=== PATIENT | male | born 1945 | race Caucasian/White ===

== ENCOUNTER 2019-05-14 20:03 | Inpatient (IN) | payer MEDICARE, OTHER ==
[~2019-05-14] VITALS: Ht 170.2 cm; Wt 70.8 kg
[~2019-05-14 20:03] MED LIST: ALBU90OI INH; ASPI325; Cyclobenzaprine5 MG PO; FISH1000; FLUSAL2505 INH; HYDCHL12.5 PO; LEVE500 PO; LOSA50 PO; Lopressor 50 mg50 MG PO; METO50 PO; MILK THISTLE140 MG; MULVIT; NIAC500; Norco 5-325 Ta1 EACH PO; OMEP40CA12 PO; POTBIC25; POTCIT5 PO; SPIR25 PO; TEMA15 PO; ZESTORETIC 20-121 EA PO
[2019-05-14 20:46] LABS: BASOPHILS ABSOLUTE AUTO 0.07 K/mm3 (0.00-0.23); BASOPHILS PERCENT AUTO 1 % (0-2); EOSINOPHILS ABSOLUTE AUTO 0.13 K/mm3 (0.00-0.68); EOSINOPHILS PERCENT AUTO 1 % (0-6); Hematocrit 46.1 % (37.0-53.0); Hemoglobin 15.5 g/dL (13.5-17.5); IMMATURE GRAN ABSOLUTE AUTO 0.04 K/mm3 (0.00-0.10); IMMATURE GRAN PERCENT AUTO 0 % (0-1); LYMPHOCYTES ABSOLUTE AUTO 2.18 K/mm3 (0.84-5.20); LYMPHOCYTES PERCENT AUTO 23 % (21-46); MONOCYTES PERCENT AUTO 10 % (4-13); Mean Corpuscular HGB 31.3 pg (26.0-34.0); Mean Corpuscular HGB Conc 33.6 g/dL (31.5-36.5); Mean Corpuscular Volume 93 fL (80-100); Mean Platelet Volume 10.4 fL (9.1-12.4); NEUTROPHILS ABSOLUTE AUTO 6.01 K/mm3 (1.96-9.15); NEUTROPHILS PERCENT AUTO 64 % (41-73); Platelet Count 210 K/mm3 (150-400); RDW Coefficient Variation 14.9 % (11.7-14.2); RDW Standard Deviation 50.6 fL (35.1-46.3); Red Blood Cell Count 4.96 M/mm3 (4.30-5.90); White Blood Cell Count 9.33 K/mm3 (4.00-11.30)
[2019-05-14] MEDS ORDERED: XARELTO15 MG (20:56)
[2019-05-14 21:14] LABS: Creatinine, Blood 1.32 mg/dL (0.60-1.20); Potassium, Blood 3.7 mmol/L (3.5-5.5); Troponin I 0.237 ng/mL (0.000-0.040)
[2019-05-14 23:07] LABS: International Normalized Ratio 1.88; Prothrombin Time Results 19.4 Sec (9.7-11.5)
[2019-05-15] MEDS ORDERED: XARELTO20 MG PO (00:23)
[2019-05-15] MEDS ORDERED: METO50 PO (00:27)
[2019-05-15 01:44] LABS: Magnesium, Blood 1.8 mg/dL (1.6-2.4); Phosphorus, Blood 3.2 mg/dL (2.5-4.9)
[2019-05-15 01:52] LABS: BASOPHILS ABSOLUTE AUTO 0.06 K/mm3 (0.00-0.23); BASOPHILS PERCENT AUTO 1 % (0-2); EOSINOPHILS ABSOLUTE AUTO 0.06 K/mm3 (0.00-0.68); EOSINOPHILS PERCENT AUTO 1 % (0-6); Hematocrit 44.3 % (37.0-53.0); Hemoglobin 14.6 g/dL (13.5-17.5); IMMATURE GRAN ABSOLUTE AUTO 0.07 K/mm3 (0.00-0.10); IMMATURE GRAN PERCENT AUTO 1 % (0-1); LYMPHOCYTES ABSOLUTE AUTO 1.37 K/mm3 (0.84-5.20); LYMPHOCYTES PERCENT AUTO 14 % (21-46); MONOCYTES ABSOLUTE AUTO 0.75 K/mm3 (0.16-1.47); MONOCYTES PERCENT AUTO 8 % (4-13); Mean Corpuscular Volume 94 fL (80-100); Mean Platelet Volume 10.5 fL (9.1-12.4); NEUTROPHILS ABSOLUTE AUTO 7.27 K/mm3 (1.96-9.15); NEUTROPHILS PERCENT AUTO 76 % (41-73); Platelet Count 197 K/mm3 (150-400); RDW Coefficient Variation 14.8 % (11.7-14.2); RDW Standard Deviation 51.5 fL (35.1-46.3); Red Blood Cell Count 4.71 M/mm3 (4.30-5.90); White Blood Cell Count 9.58 K/mm3 (4.00-11.30)
[2019-05-15 01:55] LABS: Alanine Aminotransfer (ALT/SGP 52 U/L (12-78); Albumin, Blood 3.1 g/dL (3.4-5.0); Albumin/Globulin Ratio 0.9 (0.8-1.8); Alk Phos 70 U/L (50-136); Anion Gap 10 mmol/L (6-16); Aspartate Aminotrans (AST/SGOT 40 U/L (12-37); Bilirubin, Total 1.6 mg/dL (0.1-1.0); Blood Urea Nitrogen 29 mg/dL (8-24); Bun/Creatinine Ratio 24.6 (12.0-20.0); CO2, Blood 22 mmol/L (21-32); Calcium, Blood 8.6 mg/dL (8.5-10.1); Chloride, Blood 107 mmol/L (98-108); Creatinine, Blood 1.18 mg/dL (0.60-1.20); Globulin, Blood 3.3 g/dL (2.2-4.0); Glomerular Filtration Rate >60 (60-); Glucose, Blood 134 mg/dL (70-99); Potassium, Blood 3.9 mmol/L (3.5-5.5); Sodium, Blood 139 mmol/L (136-145); Total Protein, Blood 6.4 g/dL (6.4-8.2)
[2019-05-17 04:26] LABS: Anion Gap 5 mmol/L (6-16); Blood Urea Nitrogen 21 mg/dL (8-24); Bun/Creatinine Ratio 23.8 (12.0-20.0); CO2, Blood 27 mmol/L (21-32); Calcium, Blood 8.9 mg/dL (8.5-10.1); Chloride, Blood 102 mmol/L (98-108); Creatinine, Blood 0.88 mg/dL (0.60-1.20); Glomerular Filtration Rate >60 (60-); Glucose, Blood 101 mg/dL (70-99); Magnesium, Blood 1.8 mg/dL (1.6-2.4); Potassium, Blood 3.7 mmol/L (3.5-5.5); Sodium, Blood 134 mmol/L (136-145)
[2019-05-17 04:36] LABS: Digoxin (Lanoxin) 1.43 ug/mL (0.80-2.00)
[2019-05-18 03:56] LABS: Anion Gap 7 mmol/L (6-16); Blood Urea Nitrogen 21 mg/dL (8-24); Bun/Creatinine Ratio 22.9 (12.0-20.0); CO2, Blood 26 mmol/L (21-32); Calcium, Blood 9.1 mg/dL (8.5-10.1); Chloride, Blood 101 mmol/L (98-108); Creatinine, Blood 0.92 mg/dL (0.60-1.20); Glomerular Filtration Rate >60 (60-); Glucose, Blood 105 mg/dL (70-99); Potassium, Blood 4.3 mmol/L (3.5-5.5); Sodium, Blood 134 mmol/L (136-145)
[2019-05-19 04:43] LABS: Anion Gap 8 mmol/L (6-16); Blood Urea Nitrogen 18 mg/dL (8-24); Bun/Creatinine Ratio 21.1 (12.0-20.0); CO2, Blood 27 mmol/L (21-32); Calcium, Blood 9.1 mg/dL (8.5-10.1); Chloride, Blood 99 mmol/L (98-108); Creatinine, Blood 0.85 mg/dL (0.60-1.20); Glomerular Filtration Rate >60 (60-); Glucose, Blood 100 mg/dL (70-99); Potassium, Blood 3.9 mmol/L (3.5-5.5); Sodium, Blood 134 mmol/L (136-145)
[2019-05-19 04:56] LABS: Digoxin (Lanoxin) 1.19 ug/mL (0.80-2.00); Magnesium, Blood 1.9 mg/dL (1.6-2.4)
[2019-05-20] MEDS ORDERED: Cardizem CD 24240 MG PO (10:16)
[2019-05-20] MEDS ORDERED: Klor-Con 1010 MEQ PO (10:17)
[2019-05-20] MEDS ORDERED: FURO40 PO (10:48)
== END 2019-05-20 11:21 | disposition home or self-care (01) | DRG 280 ==
LOC: ER 20:03 → PCU 20:04
PROVIDERS: Internal Medicine; Nurse Practitioner Acute Care; Physician Assistant; ADMIT Internal Medicine
PROC: B245ZZ4 Ultrasonography of Left Heart, Transesophageal (ICD-10-PCS; principal; 2019-05-18)
DX: I48.0 Paroxysmal atrial fibrillation (principal); I50.31 Acute diastolic (congestive) heart failure; I21.A1 Myocardial infarction type 2; N17.9 Acute kidney failure, unspecified; Z87.891 Personal history of nicotine dependence; Z86.73 Personal history of transient ischemic attack (TIA), and cerebral infarction without residual deficits; E87.6 Hypokalemia; I11.0 Hypertensive heart disease with heart failure; N18.3 Chronic kidney disease, stage 3 (moderate); I51.3 Intracardiac thrombosis, not elsewhere classified; I35.0 Nonrheumatic aortic (valve) stenosis
CPT/HCPCS: 36415; 36416; 71045; 80048; 80053; 80162; 83735; 83880; 84100; 84443; 84484; 85025; 85610; 85730; 93005; 93010; 93306; 93312; 93325; 96361; 96365; 96367; 96372; 96375; 96376; 99285-25; A9270; A9270-GY; G0378; J1160; J1644; J1940; J2250; J3010; J3475; J3480; J7030

== ENCOUNTER 2019-07-13 00:27 | Inpatient (IN) | payer MEDICARE ==
[~2019-07-13] VITALS: Ht 175.3 cm; Wt 70.7 kg
[~2019-07-13 00:27] MED LIST changes: +Cardizem CD 24240 MG PO; +FURO40 PO; +Klor-Con 1010 MEQ PO; +XARELTO15 MG; +XARELTO20 MG PO
[2019-07-13 01:02] LABS: BASOPHILS ABSOLUTE AUTO 0.07 K/mm3 (0.00-0.23); BASOPHILS PERCENT AUTO 1 % (0-2); EOSINOPHILS ABSOLUTE AUTO 0.14 K/mm3 (0.00-0.68); EOSINOPHILS PERCENT AUTO 2 % (0-6); Hematocrit 47.9 % (37.0-53.0); Hemoglobin 15.7 g/dL (13.5-17.5); IMMATURE GRAN ABSOLUTE AUTO 0.04 K/mm3 (0.00-0.10); IMMATURE GRAN PERCENT AUTO 1 % (0-1); LYMPHOCYTES PERCENT AUTO 21 % (21-46); MONOCYTES ABSOLUTE AUTO 0.85 K/mm3 (0.16-1.47); MONOCYTES PERCENT AUTO 10 % (4-13); Mean Corpuscular HGB Conc 32.8 g/dL (31.5-36.5); Mean Corpuscular Volume 91 fL (80-100); Mean Platelet Volume 10.5 fL (9.1-12.4); NEUTROPHILS ABSOLUTE AUTO 5.63 K/mm3 (1.96-9.15); NEUTROPHILS PERCENT AUTO 66 % (41-73); Platelet Count 215 K/mm3 (150-400); RDW Coefficient Variation 17.9 % (11.7-14.2); RDW Standard Deviation 58.6 fL (35.1-46.3); Red Blood Cell Count 5.24 M/mm3 (4.30-5.90); White Blood Cell Count 8.53 K/mm3 (4.00-11.30)
[2019-07-13 01:21] LABS: Alanine Aminotransfer (ALT/SGP 108 U/L (12-78); Albumin, Blood 3.2 g/dL (3.4-5.0); Albumin/Globulin Ratio 0.9 (0.8-1.8); Alk Phos 96 U/L (50-136); Anion Gap 8 mmol/L (6-16); Aspartate Aminotrans (AST/SGOT 99 U/L (12-37); Bilirubin, Total 1.3 mg/dL (0.1-1.0); Blood Urea Nitrogen 32 mg/dL (8-24); Bun/Creatinine Ratio 28.3 (12.0-20.0); CO2, Blood 20 mmol/L (21-32); Calcium, Blood 8.8 mg/dL (8.5-10.1); Chloride, Blood 110 mmol/L (98-108); Creatinine, Blood 1.13 mg/dL (0.60-1.20); Globulin, Blood 3.6 g/dL (2.2-4.0); Glomerular Filtration Rate >60 (60-); Glucose, Blood 120 mg/dL (70-99); Potassium, Blood 4.3 mmol/L (3.5-5.5); Sodium, Blood 138 mmol/L (136-145); Total Protein, Blood 6.8 g/dL (6.4-8.2); Troponin I 0.234 ng/mL (0.000-0.040)
[2019-07-13 02:52] LABS: Magnesium, Blood 2.1 mg/dL (1.6-2.4)
[2019-07-13] MEDS ORDERED: ASPI325 PO (04:09)
[2019-07-13 04:16] LABS: International Normalized Ratio 1.25; Prothrombin Time Results 13.2 Sec (9.7-11.5)
--- NOTE | 2019-07-13 04:45 | NUR ---
ASSUMED CARE Report recieved from Tara, RN and pt arrived to PCU 6 via stretcher and with ED RN at bedside. Pt S/L at time of arrival. HR 150's, mild SOB/HUMPHRIES. Pt conversing appropriately, alert and oriented, all other VSS. See admission assessment for detailed systems assessment. Pt able to self transfer from ED [facility] to PCU bed with SBA. Cardizem gtt began infusing at 5mg/hr per orders. Rate increased to 10 mg/hr then to 15 mg/hr d/t unchanged HR. BP remains stable. Second IV placed to RW and heprin gtt infusing at 13 u/kg/hr per orders. No acute concerns to note at start of shift. Will continue to monitor.
--- NOTE | 2019-07-13 06:42 | NUR ---
SHIFT SUMMARY No acute changes since pt admission to PCU. He remains in afib c RVR with rates 140-150's. notified at approx 0610 about no improvement to HR with cardizem gtt titrated to 15 mg/hr. Per dr. Jolley, jadeay to increase cardizem gtt to 20 mg/hr if BP is stable. BP remains stable this shift and cardizem gtt increased per orders. monitoring telemetry and BP for changes. Pt is fully alert and oriented, expresses needs with call light, heprin gtt infusing to RW. No rate changes this shift to heprin gtt. Pt has not voided since admission. States no difficulty with voiding "I just don't need to go yet". No acute concerns to note at this time. Will continue to montior until day RN assumes care.
--- NOTE | 2019-07-13 07:35 | NUR ---
Upon bedside report, pt had spontaneous L groin site bleed/ooze. Pressure applied and dressing is being changed by charge loader. RN who assumes care at this time at bedside during bleed/ooze. Distal pedal pulses remain strong. Hand off given to GERARD Nice who assumes care at this time.
--- NOTE | 2019-07-13 07:58 | NUR ---
ASSUMED PATIENT CARE. PATIENT SLEEPING COMFORTABLY IN BED, NO SIGNS OF ACUTE DISTRESS. WCTM.
--- NOTE | 2019-07-13 10:19 | NUR ---
PATIENT COMPLAINED OF INCREASED SOB, NASAL CANNULA APPLIED AT 2L O2, PATIENT ENDORSED RELIEF, WCTM.
--- NOTE | 2019-07-13 17:32 | NUR ---
PATIENT DENIED CHEST PAIN THIS SHIFT, DID COMPLAIN OF SOB RELIEVED BY PRN O2 VIA NASAL CANNULA AT 2L. PATIENT IN A FIB AT 150S START OF SHIFT WITH CARDIZEM DRIP AT 20 ML/HR. PRN 5 MG METOPROLOL GIVEN ONCE. PO CARDIZEM STARTED, AND CARDIZEM DRIP DC'd. PATIENT HAS REMAINED IN A FIB THROUGH THIS SHIFT.
--- NOTE | 2019-07-13 19:00 | NUR ---
ASSUMED CARE RECEIVED REPORT FROM GERARD MARC AND CARE WAS ASSUMED AT 1900. VVS. SBP 111. PT APPEARS TO BE IN NO ACUTE DISTRESS AT THIS TIME, SITTING UP IN BED. BREATHING IS UNLABORED ON ROOM AIR. PT IS ALERT AND ORIENTED, ANSWERING QUESTIONS APPROPRIATELY. PT HAS NO COMPLAINTS AT THIS TIME, DENYING SOB, CP, PALPITATIONS, OR NAUSEA. HEPARIN GTT INFUSING AT 13 U/KG/HR. NO ACUTE CONCERNS AT SHIFT START.
--- NOTE | 2019-07-13 23:02 | NUR ---
Pt maintaining HR in 140-150; 200 mg Metoprolol given with 2100 scheduled medication pass; no effect as of 2240. 5mg IV lopressor given per orders and HR effective only down to 130's. Pt remains asx. Will continue to monitor.
--- NOTE | 2019-07-14 03:30 | NUR ---
This RN notifed of pt being off tele. This RN immediately to bedside, pt sitting up in bed, clothes off, tele on floor, both PIV's removed and in bed. Pt is on heprin gtt. Pharmacy called to notify of heprin disconnection. Pt stating "I had a really weird dream". Pt redirectable, not irritable, he is fully compliant. Appears to be a singular event of confusion upon waking. Telemetry placed on pt, plan for immediate replacement of PIV. Will notify pharmacy when access is regained.
[2019-07-14 04:33] LABS: BASOPHILS ABSOLUTE AUTO 0.09 K/mm3 (0.00-0.23); BASOPHILS PERCENT AUTO 1 % (0-2); EOSINOPHILS ABSOLUTE AUTO 0.17 K/mm3 (0.00-0.68); EOSINOPHILS PERCENT AUTO 2 % (0-6); Hematocrit 44.7 % (37.0-53.0); Hemoglobin 14.9 g/dL (13.5-17.5); IMMATURE GRAN ABSOLUTE AUTO 0.03 K/mm3 (0.00-0.10); IMMATURE GRAN PERCENT AUTO 0 % (0-1); LYMPHOCYTES ABSOLUTE AUTO 1.35 K/mm3 (0.84-5.20); LYMPHOCYTES PERCENT AUTO 19 % (21-46); MONOCYTES ABSOLUTE AUTO 0.66 K/mm3 (0.16-1.47); MONOCYTES PERCENT AUTO 9 % (4-13); Mean Corpuscular HGB 30.5 pg (26.0-34.0); Mean Corpuscular HGB Conc 33.3 g/dL (31.5-36.5); Mean Corpuscular Volume 92 fL (80-100); Mean Platelet Volume 10.2 fL (9.1-12.4); NEUTROPHILS PERCENT AUTO 68 % (41-73); Platelet Count 197 K/mm3 (150-400); RDW Coefficient Variation 17.9 % (11.7-14.2); RDW Standard Deviation 58.7 fL (35.1-46.3); Red Blood Cell Count 4.88 M/mm3 (4.30-5.90)
[2019-07-14 04:58] LABS: Alanine Aminotransfer (ALT/SGP 112 U/L (12-78); Albumin, Blood 2.8 g/dL (3.4-5.0); Albumin/Globulin Ratio 0.8 (0.8-1.8); Alk Phos 77 U/L (50-136); Anion Gap 7 mmol/L (6-16); Aspartate Aminotrans (AST/SGOT 79 U/L (12-37); Bilirubin, Total 1.7 mg/dL (0.1-1.0); Blood Urea Nitrogen 32 mg/dL (8-24); Bun/Creatinine Ratio 28.8 (12.0-20.0); CO2, Blood 22 mmol/L (21-32); Calcium, Blood 8.7 mg/dL (8.5-10.1); Chloride, Blood 107 mmol/L (98-108); Creatinine, Blood 1.11 mg/dL (0.60-1.20); Globulin, Blood 3.4 g/dL (2.2-4.0); Glomerular Filtration Rate >60 (60-); Glucose, Blood 120 mg/dL (70-99); Magnesium, Blood 1.9 mg/dL (1.6-2.4); Phosphorus, Blood 3.9 mg/dL (2.5-4.9); Potassium, Blood 3.6 mmol/L (3.5-5.5); Sodium, Blood 136 mmol/L (136-145); Total Protein, Blood 6.2 g/dL (6.4-8.2)
--- NOTE | 2019-07-14 07:19 | NUR ---
SHIFT SUMMARY PT REMAINS IN ATRIAL FIBRILLATION C RVR, WITH RATES IN THE 130'S. HEPARIN INFUSING AT 13 U/KG/HR. SBP 140. METOPROLOL ADMINISTERED PER ORDERS, WITH NO IMPROVEMENT NOTED. BREATHING IS UNLABORED ON ROOM AIR. PT REMAINED ALERT AND ORIENTED THROUGHOUT SHIFT, ABLE TO ANSWER QUESTIONS AND CONVERSE WITH STAFF APPROPRIATELY. THOUGH HE DID DEMONSTRATE A SINGLE EPISODE OF CONFUSION IN WHICH HE WOKE UP FROM DREAMING ABOUT "BEING CHASED BY DOGS" AND REMOVED HIS IV. PT IS OTHERWISE COOPERATIVE. NO ACUTE CONCERNS OR CHANGES THIS SHIFT.
--- NOTE | 2019-07-14 07:55 | NUR ---
APPEND TO SHIFT SUMMARY Pt on heprin gtt this shift, no titration needed overnight. Pharmacy aware of length of time that PIV was disconnected from pt and APTT to be redrawn to accurately reflect lab value. Pt able to use urinal at bedside independantly. Though he is in Afib with RVR in 130-140's, he remains asymptomatic. At times, while pt is asleep, breathing becomes tachypneic, but as pt awakens breathing evens and rate lowers. Overall, no changes overnight, no improvement in HR. based on pt's previous admission - difficulty with rate control appears to be a problem during previous admission. Cardizem PO initiated first dose 07/13/19 day shift and to continue TID 07/14/19 day shift. Metoprolol 200mg given 07/13/19 at 2100 had no notable effect on HR and 5mg lopressor IV with no lasting effect. Report off to day RN who assumes care.
--- NOTE | 2019-07-14 08:30 | NUR ---
PT SITTING UP IN BED. PT EAGER TO GO HOME. A&Ox4. ZHOU. LUNG SOUNDS CLEAR IN ALL RAMOS. DENIES SOB. BREATHING APPEARS UNLABORED. PT SPEAKING IN FULL SENTENCES. ON TELE. RATE AND RHYTHMN AFIB W/ RVR 130s. PULSES STRONG. 2+ EDEMA IN BILAT LOWER EXTREM. PT DENIES CP. BOWEL TONES HEARD IN ALL FOUR QUADRANTS. DENIES PN OR DISCOMFORT. SKIN WARM AND PINK. PT ABLE TO MAKE ADJUSTMENTS IN BED W/O ASSISTANCE. NORMALLY AMBULATORY. IV IN RAC IS PATENT AND CURRENTLY INFUSING. BED IN LOWEST POSITION, RAILS UP, AND CALL LIGHT W/IN REACH.
--- NOTE | 2019-07-14 12:30 | NUR ---
PT REPORTED SUDDEN ONSET OF SOB. PT NOW STS DYSPNEA HAS SUBSIDED AND DENIES SOB. O2 SAT IS 94% ON RA. PT GIVEN INSRUCTION ON HOW TO USE CALL LIGHT IF SYMPTOMS RETURN. PT IS SITTING UP IN BED AT THIS TIME. BED IN LOW POSITION, RAILS UP, AND CALL LIGHT WITHIN REACH.
--- NOTE | 2019-07-14 16:44 | NUR ---
MEHRDAD PAUSES NOTED ON TELE. THE FIRST PAUSE LASTED 3.O8 SECONDS AND THE SECOND PAUSE LASTED 2.[address] BLEDSOE INFORMED OF THE SITUATION. DR BLEDSOE OPTED TO HOLD THE NEXT DOSE OF CARDIZEM AND ESTABLISH NEW PARAMETERS.
--- NOTE | 2019-07-14 16:48 | NUR ---
Echocardiogram completed.
--- NOTE | 2019-07-14 18:50 | NUR ---
SHIFT SUMMARY PT TO HAVE CARDIOLOGY CONSULT. TELE NOTED TWO PAUSES IN HEART RHYTHMN. DR NOTIFIED. PT HR NOW IN LOW 50s. RHYTHMN AFIB. PT REPORTS SUDDEN SOB W/O WARNING ON OCCASION. PT O2 SAT @ 96% ON RA CURRENTLY. STS BREATHING IS BETTER NOW. PT NOW SITTING AT BEDSIDE WATCHING TV.
--- NOTE | 2019-07-14 20:13 | NUR ---
ASSUMED CARE Report recieved from GERARD Peterson and Fan Godinez, Student Nurse and care assumed at 1900. Pt presents in bed, moderately labored breathing pattern, open mouth tachypnea at 22-25 bpm. Pt denies feeling SOB, oxygen saturations 99%. Extremities cool, dusky fingers. HR at time of shift change 40-50 afib on tele. Pt with BP stable, converses but dyspneic with conversation. 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 Pt states "I am so tired, this was quite a day" pt falls asleep frequently during assessment and care, arrouses with ease.
--- NOTE | 2019-07-14 20:16 | NUR ---
Pt with HR trending 38-45 on tele. RR 24, BP 103/59. Sleeping but arrousable. Call made to provider to update on pt condition. awaiting call back at this time. Holding metoprolol dose for this shift as HR is aram.
--- NOTE | 2019-07-14 21:00 | NUR ---
EKG completed, results called to cardiology, dr. rollins. telephone order to D/C cardizem 60mg TID, order to d/c metoprolol tartrate 150 mg, order to add metorpolol succinate 25mg once daily. orders read back to provider. Will continue to jimbo.
[2019-07-15 04:16] LABS: Mean Platelet Volume 10.3 fL (9.1-12.4); Platelet Count 193 K/mm3 (150-400)
[2019-07-15 04:38] LABS: Bun/Creatinine Ratio 25.2 (12.0-20.0); Creatinine, Blood 1.31 mg/dL (0.60-1.20); Magnesium, Blood 1.8 mg/dL (1.6-2.4); Potassium, Blood 3.9 mmol/L (3.5-5.5)
--- NOTE | 2019-07-15 06:27 | NUR ---
Shift Summary At start of shift, pt with HR in 38-45 bpm range. See previous notes for orders from providers. Since then, HR trending up to 120-130's. Pt is asymptomatic. Denies SOB or HUMPHRIES. VSS. fully alert and oriented. Pt slept much of this shift, appears rested and more energetic than at start of shift when pt was weak and tired. Pt forgetful at times, sets off bed alarm when needing to use restroom. Pt is very apologetic when alarm goes off. Pleasant and cooperative. Heprin gtt infusing, two critical values called in to this RN this shift, Pharmacy aware and managing heprin gtt. Will continue to monitor. no acute concerns at this time.
--- NOTE | 2019-07-15 08:17 | NUR ---
A&Ox4. ZHOU. LUNG SOUNDS DIMINISHED IN BASES OTHERWISE CLEAR THROUGHOUT. DENIES SOB AT THIS TIME. SPO2 95% ON RA. ON TELE. AFIB IN THE 120s. CURRENTLY DENIES ANY CP. EDEMA NOTED IN BILAT LOWER EXTREMETIES. BOWEL TONES AUSCLETATED IN ALL 4 QUADRANTS. DENIES ABD PN. LAST BM 07/14/19. DENIES ISSUES W/ URINATION. SKIN IS PINK AND SLIGHTLY COOL ON FEET. PERIPHERAL LINE IN RA PATENT AND INFUSING HEPARIN. PT NOW FINISHED EATING BREAKFAST AND IS RESTING IN BED AT THIS TIME. BED IN LOWEST POSITION, RAILS UP, AND CALL LIGHT W/IN REACH.
--- NOTE | 2019-07-15 19:16 | NUR ---
SHIFT SUMMARY MED ORDERS CHANGED EARLEIR IN THE SHIFT. HR CONTINUES TO BE TACHY AND IRREGULAR. PT DENIES CP. REPORTS OCCASIONAL CP. HEPARIN CURRENTLY INFUSING. PT SITTING AT BEDSIDE WATCHING TV AT THIS TIME.
--- NOTE | 2019-07-15 20:00 | NUR ---
ASSUMPTION OF CARE: PT A&O. INDEPENDENT IN ROOM. IN AFIB WITH HR 130-140. SBP 110-140. LUNG SOUNDS CLEAR, DIM IN BASES. DENIES SOB AT THIS TIME. PIV IN RAC WITH HEPARIN AT 11U. DOSING WEIGHT IS 73KG. BED IS IN LOWEST POSITION. CALL LIGHT IN REACH. WILL CONTINUE TO MONITOR
--- NOTE | 2019-07-15 20:30 | NUR ---
UPON ENTERING PT ROOM PT STATED HE NEEDED HIS IV FIXED. I NOTICED BLOOD BACKING UP INTO IV TUBING THAT WAS INFUSING WITH HEPARIN. CHECKED PUMP INFUSING THE HEPARIN AND HEPARIN WAS ON STANDBY. DISCONNECTED LINE AND FLUSHED IV. REMAINS PATENT AND FLUSHED WELL. RECONNECTED HEPARIN LINE AND RESTARTED HEPARIN INFUSION. PT STATED THAT SOMEONE CAME IN TO ROOM AND TURNED IT OFF AROUND 1500. CALL PLACED TO PHARMACIST TO INFORM THEM THAT HEPARIN HAD BEEN ON STANDBY POTENTIALLY SINCE 1500. PLAN IS TO DRAW APTT AND ADJUST RATE ACCORDINGLY.
--- NOTE | 2019-07-15 22:00 | NUR ---
SPOKE TO ANNELIESE, PHARMACIST RE APTT RESULTS. ORDERS ARE TO KEEP HEPARIN INFUSION RATE AT 11U/KG/HR AND TO REDRAW APTT IN 5-6HRS.
[2019-07-16 03:52] LABS: BASOPHILS ABSOLUTE AUTO 0.07 K/mm3 (0.00-0.23); BASOPHILS PERCENT AUTO 1 % (0-2); EOSINOPHILS ABSOLUTE AUTO 0.17 K/mm3 (0.00-0.68); EOSINOPHILS PERCENT AUTO 3 % (0-6); Hematocrit 44.6 % (37.0-53.0); Hemoglobin 15.3 g/dL (13.5-17.5); IMMATURE GRAN ABSOLUTE AUTO 0.05 K/mm3 (0.00-0.10); IMMATURE GRAN PERCENT AUTO 1 % (0-1); LYMPHOCYTES ABSOLUTE AUTO 1.52 K/mm3 (0.84-5.20); LYMPHOCYTES PERCENT AUTO 23 % (21-46); MONOCYTES PERCENT AUTO 12 % (4-13); Mean Corpuscular HGB 30.3 pg (26.0-34.0); Mean Corpuscular HGB Conc 34.3 g/dL (31.5-36.5); Mean Platelet Volume 10.1 fL (9.1-12.4); NEUTROPHILS ABSOLUTE AUTO 3.99 K/mm3 (1.96-9.15); NEUTROPHILS PERCENT AUTO 60 % (41-73); Platelet Count 193 K/mm3 (150-400); RDW Coefficient Variation 17.5 % (11.7-14.2); RDW Standard Deviation 54.4 fL (35.1-46.3); Red Blood Cell Count 5.05 M/mm3 (4.30-5.90)
[2019-07-16 03:53] LABS: Mean Corpuscular Volume 88 fL (80-100)
[2019-07-16 04:12] LABS: Anion Gap 7 mmol/L (6-16); Blood Urea Nitrogen 28 mg/dL (8-24); Bun/Creatinine Ratio 29.3 (12.0-20.0); CO2, Blood 24 mmol/L (21-32); Calcium, Blood 8.7 mg/dL (8.5-10.1); Chloride, Blood 104 mmol/L (98-108); Creatinine, Blood 0.96 mg/dL (0.60-1.20); Glomerular Filtration Rate >60 (60-); Glucose, Blood 118 mg/dL (70-99); Magnesium, Blood 1.9 mg/dL (1.6-2.4); Potassium, Blood 3.8 mmol/L (3.5-5.5); Sodium, Blood 135 mmol/L (136-145)
--- NOTE | 2019-07-16 06:45 | NUR ---
SHIFT SUMMARY: NO ACUTE CHANGES T/O SHIFT. PT SLEPT MOST OF SHIFT. HEPARIN REMAINS INFUSING AT 11UNITS/KG. PT WAS OFFERED A CHANGE OF CLOTHES AND NEW SOCKS HIS WERE WET AND HE REFUSED. AMBULATES AND USES BATHROOM ON OWN. HR REMAINS ELEVATED IN THE 130S. SBP STABLE. DENIES CP OR N/V. WILL PASS REPORT TO ONCOMING SHIFT
--- NOTE | 2019-07-16 12:04 | NUR ---
P HR STILL AFIB ON THE 120'S-150'S ORAL METOPROLOL GIVEN PT HRR STILL STAYED THE SAME, PT STARTED C/O SOB UPON LAYING DOWN RELIEVED WHEN HOB WAS ELEVATED SPO2 WAS MAINTAINING ABOVE 95%. IV LOPRESSOR 5MG GIVEN PT REMAINED ON THE 120'S-130'S PER HEART RATE. DR BLEDSOE WAS INFORMED, TO FF-UP WITH TRIM ATTACHER TODAY, DR ESCUDERO WAS CALLED AND MADE AWARE, TO SEE PATIENT TODAY. PT CURRENTLY EATING LUNCH, NO COMPLAINS AT THIS TIME, THE REST OF THE VITALS STABLE. WILL MONITOR
--- NOTE | 2019-07-16 18:36 | NUR ---
PT STARTED ON CARDIZEM GTT AT 5MG/HR, TO KEEP HR LESS THAN 110. BP SYSTOLIC HAS BEEN ON THE 120'S, HRR REMAINS ON THE 120'-140'S. PT WAS C/O CHEST TIGHTNESS WHEN THE CARDIOLOGISTS WAS IN THE ROOM TO SEE PT, PT STATED IT COMES AND GO AND SO OCCASIONAL SOB. PT IS NOW UP IN THE CHAIR EATING HIS DINNER. PT WITH NO COMPLAINS AT THIS TIME. FOR POSSIBLE MARY/CARDIOVERSION TOMORROW PER DR DOMINGUEZ. DR GARCIA TO FOLLOW. WILL MONITOR PATIENT.
--- NOTE | 2019-07-16 23:07 | NUR ---
ASSUMED CARE AT 1900. PT A/OX4, IND. IN ROOM. HR IN 140'S AT 1900 WITH CARDIZEM DRIP AT 5ML/HR. CARDIZEM DRIP TITRATED UP TO 10/HR AROUND 2029. PO METOPROLOL PER ORDER GIVEN AROUND 2099. HR CONTINUED TO BE TACHYCARDIC. IV METOPROLOL GIVEN PER ORDER - SEE EMAR. AT 2300 HEART RATE IN 90'S. CARDIZEM DRIP TURNED OFF AT 2300. VSS. WCTM.
--- NOTE | 2019-07-17 02:45 | NUR ---
CARDIZEM RE-STARTED FOR HR IN 120'S-130.
[2019-07-17 03:51] LABS: Mean Platelet Volume 10.5 fL (9.1-12.4); Platelet Count 179 K/mm3 (150-400)
[2019-07-17 04:13] LABS: Anion Gap 9 mmol/L (6-16); Blood Urea Nitrogen 27 mg/dL (8-24); CO2, Blood 24 mmol/L (21-32); Calcium, Blood 8.7 mg/dL (8.5-10.1); Chloride, Blood 102 mmol/L (98-108); Creatinine, Blood 0.93 mg/dL (0.60-1.20); Glomerular Filtration Rate >60 (60-); Glucose, Blood 106 mg/dL (70-99); Sodium, Blood 135 mmol/L (136-145)
--- NOTE | 2019-07-17 05:14 | NUR ---
SHIFT SUMMARY PT A/O X4 AND IND. IN ROOM. AT START OF SHIFT PT WAS ON CARDIZEM DRIP AT 5/HR THEN TITRATED UP TO 10/HR. HR WAS STILL HIGH; GIVEN IV METOPROLOL PER ORDER. THIS HELPED QUITE A BIT; HR DROPPED TO 80'S-90'S. CARDIZEM TURNED OFF AT 2300. HR STARTED TO INCREASE AGAIN AROUND 0100. CARDIZEM TURNED BACK ON TO 5/HR WHEN HR WAS CONSISTENTLY IN 120'S. SEE EMAR FOR TIMING. HR CONTINUED TO STAY IN 120'S-130'S. METOPROLOL GIVEN AGAIN APPROX 0500 - SEE EMAR. HR DISCUSSED WITH CHISEL MORTISER OPERATOR. WCTM. BP HAS BEEN STABLE. PT HAD SOME C/O SHORTNESS OF BREATH DURING THE NIGHT. 1L O2 NC PROVIDED; PT REPORTS THIS HELPED. PT REPORTS HE SOMETIMES USES O2 AT HOME.
--- NOTE | 2019-07-17 11:40 | NUR ---
SPOKE WITH THE PATIENT ABOUT HIS BLOOD THINNER MEDICATION SINCE THE PATIENT WAS CURRENTLY STARTED YESTERDAY WITH ELIQUIS AND NOW HE IS TO RESUME XARELTO PER PHARMACY. PT WAS C/O SOME SIDE EFFECTS OF XARELTO LIKE BLOOD IN THE URINE BEFORE AND THAT HE PREFERS ELIQUIS BETTER. SPOKE TO DR DE PAZ TOO ADVISE TO CONVINCE PATIENT TO TAKE XARELTO AT THIS TIME AND IF PATIENT DISCHARGES PT WILL BE SENDING HOME WITH ELIQUIS. PT AGREED. PT CURRENTLY NPO AWAITING FO ASSEMBLER SEAT TO SEE PATIENT FOR POSS MARY. HRR STILL AFIB REMAINED ON THE 110'S-140'S, PT DENIES SOB/CP/PRESSURE AT THIS TIME. BP SYSTOLIC ON THE 130'S. CARDIZEM GTT CURRENTLY RUNNING AT 10MG/HR. WILL MONITOR
--- NOTE | 2019-07-17 19:00 | NUR ---
ASSUMED CARE NOTE: ASSUMED CARE OF PT AT 1900, RECEVIED REPORT FROM GERARD TREVINO. PT IS ALERT AND ORIENTEDX4. PT IS ON RA WITH SPO2 ABOVE 95% PT DENIES ANY SOB/CHEST PAIN AT THIS TIME. PT IS IN AFIB WITH HR BETWEEN 70-80'S. PT ON AMIODARONE DRIP 1MG/MIN. PT ON CONTINUOUS HEART MONITORING. BOWEL TONES HEARD IN ALL FOUR QUARANTS. PT WALKS TO THE RESTROOM INDEPENDENTLY, IS STEADY ON FEET. PT HAS 1+ PITTING EDEMA TO BLE. PT USES CALL LIGHT APPROPRIATLY, BED AT LOWEST LEVEL. WILL CONTINUE TO MONITOR PT T/O SHIFT.
--- NOTE | 2019-07-17 19:27 | NUR ---
PT SUMMARY: SEE PREVIOUS NOTES PT WAS STARTED ON AMIODARONE DRIP 150MG BOLUS GIVEN PRIOR, CURRENTLY RUNNING AT 1MG/HR. HRR REMAINED AFIB ON THE 120'S-140'S. PT DENIES CHEST PAIN/PRESSURE SATS ABOVE 95% ON ROOMAIR THE REST OF THE VITALS STABLE. PT TO BE NPO AFTER MIDNIGHT FOR POSSIBLE MAYR/CARDIOVERSION IF AMIODARONE GTT IS NOT EFFECTIVE. PT IS AWARE. REPORT GIVEN TO WHITE WASHER PILER NURSE.
--- NOTE | 2019-07-17 20:31 | NUR ---
UPDATE: AMNIODARONE DRIP TURNED OFF AT 1935, DUE TO HR DECREASING AND MAINTAINING IN THE LOW 50'S. BP STABLE. PT C/O SHORTNESS OF BREATH, SPO2 AT 95% PT DENIES CHEST PAIN. PT STATES SOB CEASED AFTER 5 MIN.
[2019-07-18 04:13] LABS: Anion Gap 9 mmol/L (6-16); Blood Urea Nitrogen 25 mg/dL (8-24); Bun/Creatinine Ratio 25.6 (12.0-20.0); CO2, Blood 22 mmol/L (21-32); Calcium, Blood 8.7 mg/dL (8.5-10.1); Chloride, Blood 102 mmol/L (98-108); Creatinine, Blood 0.98 mg/dL (0.60-1.20); Glomerular Filtration Rate >60 (60-); Glucose, Blood 93 mg/dL (70-99); Sodium, Blood 133 mmol/L (136-145)
--- NOTE | 2019-07-18 04:20 | NUR ---
UPDATE: AMIODARONE TURNED BACK ON AT 0400, DUE TO HR MAINTAINING IN THE 130'S. PT ON [employer] HEART MONITOR. CHARGE NURSE AND TELE MONITOR AWARE.
--- NOTE | 2019-07-18 05:51 | NUR ---
SHIFT SUMMARY: PT AMIODARONE DRIP RESTARTED AT 0400, DUE HR INCREASING AND MAINTINING INTO THE 130'S AND PT STATING HE WAS BECOME SOB AT TIMES. PT DENIES ANY CP AT THIS TIME. PT PLACED ON 2L OF O2 VIA NC, WITH SPO2 AT 97% SINCE THE RESTART OF THE AMIODARONE, NO CHANGES TO HR OR RHYTHM NOTED. PT CONTINUES TO BE IN AFIB- WITH HR IN THE 130'S. PT WAS INCONTINENT OF URINE WHILE ASLEEP, LINENS CHANGED AND ATTENDS PLACED. VSS. WILL CONTINUE TO MONITOR PT UNTIL REPORT IS GIVEN TO ONCOMING SHIFT.
--- NOTE | 2019-07-18 09:05 | NUR ---
AM NOTE... ASSUMED CARE OF PT APROX 0700. PT IS A&Ox4, PT WAS ADMITTED FOR AFIB RVR, PT IS CURRENTLY ON AMNIO GTT RUNNING AT 33.3MLS/HR. PT IS IN AFIB IN THE 120'S PER METAL TREATER. OTHER VS STABLE AT THIS TIME. BT PRESENT AND NORMOACTIVE ABD SOFT AND NONTENDER TO PALP. NO EDEMA NOTED ON ASSESSMENT. L/S CLEAR IN THE UPPER LOBES DIM IN THE LOWER ON RA. PT REFUSED HIS IV LASIX THIS AM, PT STATED "I DON'T WANT TO PEE EVERY 5 MINUTES! JUST LET ME HAVE SOME PEACE TODAY!" PT WAS EXTENSIVELY EDUCATED ON THE REASON HE IS TAKING LASIX, THE REASON HE WAS ADMITTED AND THE IMPORTANCE OF TAKING MEDS ORDERED. PT STATED HIS UNDERSTANDING BUT STILL REFUSED. WILL CONTINUE TO MONITOR
--- NOTE | 2019-07-18 18:35 | NUR ---
SHIFT SUMMARY... PT REFUSED TO TAKE HIS IV LASIX THIS AM. APROX 1400 THE PT STARTED TO C/O OF SOB AT REST. NO CHANGE WAS NOTICED FROM THIS AM ASSESSMENT. PROVIDER WAS CALLED AND ORDER OBTAINED FOR ONE TIME DOSE OF IV LASIX, THIS WAS GIVEN AND APROX 1 HOUR LATER THE PT SATED THAT HE COULD "BREATH MUCH BETTER NOW." PT'S VS WERE STABLE DURING THIS EVENT, 2L NC WAS PLACED ON THE PT FOR COMFORT BUT PT'S O2 SATS WERE >90%. PT HAS BEEN IND IN THE ROOM AND HAD A BM THIS AM. CALL LIGHT IN REACH WILL CONTINUE TO MONITOR UNTIL REPORT IS GIVEN TO ONCOMING RN.
--- NOTE | 2019-07-18 19:00 | NUR ---
Assumed Care Received report from GERARD Garduno and care was assumed at 1900. VSS. SBP 122. Telemetry shows atrial fibrillation, rate ranging 110-130's. Pt is alert and oriented. Conversing with staff and answering questions appropriately. Speaking in full sentences. O2 >96% on 2L via NC. Amiodarone infusing into right upper arm, per orders/Emar. Pt denies CP/pressure, palpitations, SOB, and/or other symptoms at this time. No acute concerns to note at shift start.
[2019-07-19 04:18] LABS: Mean Platelet Volume 10.3 fL (9.1-12.4); Platelet Count 201 K/mm3 (150-400)
[2019-07-19 04:36] LABS: Anion Gap 8 mmol/L (6-16); Blood Urea Nitrogen 30 mg/dL (8-24); Bun/Creatinine Ratio 26.8 (12.0-20.0); CO2, Blood 24 mmol/L (21-32); Calcium, Blood 8.7 mg/dL (8.5-10.1); Chloride, Blood 103 mmol/L (98-108); Creatinine, Blood 1.12 mg/dL (0.60-1.20); Glomerular Filtration Rate >60 (60-); Glucose, Blood 104 mg/dL (70-99); Magnesium, Blood 2.1 mg/dL (1.6-2.4); Sodium, Blood 135 mmol/L (136-145)
--- NOTE | 2019-07-19 06:49 | NUR ---
Shift Summary No acute events throught the shift. VSS. SBP 134. O2 saturation >95% on 2L via NC. Telemetry shows atrial fibrillation, rate 130's. Pt alert and oriented, convering with staff and answering questions appropriately. Denies CP/pressure, SOB, nausea, vomiting, and/or other symptoms. Pt independently transferred to restroom several times throughout the shift; though, he did require assistance with his line/cords/tubes. Minimal dyspnea with exertion was noted. Amiodaron finished infusing around 0411. IV saline locked. No acute changes and/or concerns this shift. See shift assessment for detailed systems assessment.
--- NOTE | 2019-07-19 07:52 | NUR ---
AM NOTE... ASSUMED CARE OF PT APROX 0700 PT IS A&Ox4 AND IND IN THE ROOM. PT WAS STARTED ON PO AMIODERONE AT 400MG TID PER VERBAL ORDERS FROM DR. GARCIA. PT'S VS STABLE AT THIS TIME, PT IS IN AFIB IN THE 100'S-120'S. PT IS TO HAVE MARY/CARDIOVERSION TODAY. CONSENT IS SIGNED AND IN THE CHART. L/S CLEAR T/O DIM IN THE BASES ON RA. NO EDEMA NOTED ON ASSESSMENT. BT PRESENT AND NORMOACTIVE ABD SOFT AND NONTENDER TO PALP. CALL LIGHT IN REACH WILL CONTINUE TO MONITOR.
--- NOTE | 2019-07-19 13:01 | NUR ---
MARY complete. Dr. Resendez informed pt that clot is still present, so cardioversion is aborted at this time. Instructions to continue xarelto.
--- NOTE | 2019-07-19 13:49 | NUR ---
1253 Dr. Resendez here, time out done. 1256: Transducer introduced following medication administration (see eMAR for details). 1257: Cardioversion aborted per Dr. Resendez. Thrombus noted, Dr. Resendez states pt had had interruption in his xarelto routine in past.
--- NOTE | 2019-07-19 18:46 | NUR ---
SHIFT SUMMARY... NO ACUTE NEGATIVE CHANGES NOTED THIS SHIFT. PT HAS BEEN IN AFIB IN THE 100'S-120'S. PO AMIODERONE STARTED PER ORDERS. PT WAS MADE NPO FOR MARY/CARDIOVERSION TODAY. PT HAD MARY AT APROX 1300, NO CARDIOVERSION D/T CLOT IN THE HEART. PT TOLERATED THIS WELL, VS STABLE. PT IS ANXIOUS TO D/C HOME. AMIODERONE PO WAS STOPPED AND STARTED ON DIGOXIN 0.125 PER VERBAL ORDER. CALL LIGHT IN REACH WILL CONTINUE TO MONITOR UNTIL REPORT IS GIVEN TO ONCOMING RN.
[2019-07-20 04:54] LABS: BASOPHILS ABSOLUTE AUTO 0.07 K/mm3 (0.00-0.23); BASOPHILS PERCENT AUTO 1 % (0-2); EOSINOPHILS ABSOLUTE AUTO 0.19 K/mm3 (0.00-0.68); EOSINOPHILS PERCENT AUTO 3 % (0-6); Hematocrit 46.4 % (37.0-53.0); IMMATURE GRAN ABSOLUTE AUTO 0.03 K/mm3 (0.00-0.10); IMMATURE GRAN PERCENT AUTO 1 % (0-1); LYMPHOCYTES ABSOLUTE AUTO 1.32 K/mm3 (0.84-5.20); LYMPHOCYTES PERCENT AUTO 21 % (21-46); MONOCYTES ABSOLUTE AUTO 0.77 K/mm3 (0.16-1.47); MONOCYTES PERCENT AUTO 12 % (4-13); Mean Corpuscular HGB 30.7 pg (26.0-34.0); Mean Corpuscular HGB Conc 34.5 g/dL (31.5-36.5); Mean Corpuscular Volume 89 fL (80-100); Mean Platelet Volume 10.2 fL (9.1-12.4); NEUTROPHILS ABSOLUTE AUTO 3.89 K/mm3 (1.96-9.15); NEUTROPHILS PERCENT AUTO 62 % (41-73); Platelet Count 198 K/mm3 (150-400); RDW Coefficient Variation 17.4 % (11.7-14.2); RDW Standard Deviation 55.3 fL (35.1-46.3); Red Blood Cell Count 5.22 M/mm3 (4.30-5.90); White Blood Cell Count 6.27 K/mm3 (4.00-11.30)
[2019-07-20 05:11] LABS: Anion Gap 8 mmol/L (6-16); Blood Urea Nitrogen 31 mg/dL (8-24); Bun/Creatinine Ratio 28.2 (12.0-20.0); CO2, Blood 25 mmol/L (21-32); Calcium, Blood 8.7 mg/dL (8.5-10.1); Chloride, Blood 103 mmol/L (98-108); Glomerular Filtration Rate >60 (60-); Glucose, Blood 105 mg/dL (70-99); Magnesium, Blood 2.1 mg/dL (1.6-2.4); Potassium, Blood 4.2 mmol/L (3.5-5.5); Sodium, Blood 136 mmol/L (136-145)
--- NOTE | 2019-07-20 06:00 | NUR ---
END OF SHIFT SUMMARY NO ACUTE CHANGES DURING THIS SHIFT. VSS. O2 SAT >94% ON RA THE MAJORITY OF THE NIGHT. PT SLEPT APROX 8 HOURS. PT ON TELE IN AFIB IN THE 110'S. PT DID NOT AMBULATE, INSTEAD USED URINAL T/O THE NIGHT. PT DENIES CHEST PAIN OR SOB. PT STATES HE 'WANTS TO GO HOME. HAS STUFF TO TAKE CARE OF'. HE STATED HIS DOESNT DRIVE AND HE NEEDS TO GET HOME TO [facility] FOR HER.
[2019-07-20] MEDS ORDERED: TORSE20 PO (13:19)
[2019-07-20] MEDS ORDERED: LANOXIN125 MCG PO (13:22)
[2019-07-20] MEDS ORDERED: METO50ER PO (13:22)
[2019-07-20] MEDS ORDERED: SYNTHROID25 MCG PO (13:23)
[2019-07-20] MEDS ORDERED: ELIQUIS5 MG PO (13:24)
[2019-07-20] MEDS ORDERED: LISI5 PO (13:24)
--- NOTE | 2019-07-20 14:15 | NUR ---
PT D/C HOME... DISCHARGE EDUCATION AND INFORMATION PROVIDED TO THE PT. EDUCATION ON NEW MEDICATIONS, WHY HE IS TAKING THEM AND THE IMPORTANCE OF TAKING HIS MEDICATIONS ORDERED WAS PROVIDED TO THE PT. PT VERBALIZED HIS UNDERSTANDING. PT ALSO STATED "MY WHOLE LIFE IS GOING TO HAVE TO BE DIFFERENT NOW WITH THESE STUPID WATER PILLS." THIS RN PROVIDED THERAPUTIC COMMUNICATION AND TOUCH TO THE PT. THIS RN PROVIDED INFORMATION ON CONDOM CATH AND PULL UPS/ATTENDS AND OTHER RESOURCES THAT WOULD HELP THE PT AT HOME. PT AGAIN VERBALIZED HIS UNDERSTANDING. IV WAS REMOVED WNL. ALL OF PT'S BELONGINGS PACKED AND SENT WITH THE PT. PTS NEW MEDICATIONS CALLED INTO THE PT'S PHARMACY OF CHOICE.
== END 2019-07-20 14:44 | disposition home or self-care (01) | DRG 291 ==
LOC: ER 00:27 → PCU 00:28
PROVIDERS: Emergency Medicine; Hospitalist; Internal Medicine; ADMIT Family Medicine
PROC: B246ZZ4 Ultrasonography of Right and Left Heart, Transesophageal (ICD-10-PCS; principal; 2019-07-19)
DX: I13.0 Hypertensive heart and chronic kidney disease with heart failure and stage 1 through stage 4 chronic kidney disease, or unspecified chronic kidney disease (principal); J96.01 Acute respiratory failure with hypoxia; I50.41 Acute combined systolic (congestive) and diastolic (congestive) heart failure; I24.8 Other forms of acute ischemic heart disease; Z87.891 Personal history of nicotine dependence; N18.3 Chronic kidney disease, stage 3 (moderate); E87.6 Hypokalemia; I49.5 Sick sinus syndrome; I51.3 Intracardiac thrombosis, not elsewhere classified
CPT/HCPCS: 36415; 71260; 80048; 80053; 83735; 83880; 84100; 84439; 84443; 84481; 84484; 85025; 85049; 85610; 85730; 93005; 93010; 93308; 93312; 93321; 93325; 96374; 96375; 96376; 99152; 99285-25; A9270; G0378; J0282; J1644; J1940; J2250; J3010; J7030; J7060; Q9967

== ENCOUNTER 2021-10-03 15:36 | Inpatient (IN) | payer MEDICARE ==
[~2021-10-03] VITALS: Ht 170.2 cm; Wt 68.5 kg
[~2021-10-03 15:36] MED LIST changes: +ASPI325 PO; +ELIQUIS5 MG PO; +LANOXIN125 MCG PO; +LEVSOD25 PO; +LISI5 PO; +METO50ER PO; +TORSE20 PO
[2021-10-03 16:27] LABS: BASOPHILS ABSOLUTE AUTO 0.05 K/mm3 (0.00-0.23); BASOPHILS PERCENT AUTO 1 % (0-2); EOSINOPHILS ABSOLUTE AUTO 0.18 K/mm3 (0.00-0.68); EOSINOPHILS PERCENT AUTO 2 % (0-6); Hematocrit 41.1 % (37.0-53.0); Hemoglobin 14.3 g/dL (13.5-17.5); IMMATURE GRAN ABSOLUTE AUTO 0.04 K/mm3 (0.00-0.10); IMMATURE GRAN PERCENT AUTO 0 % (0-1); LYMPHOCYTES ABSOLUTE AUTO 1.37 K/mm3 (0.84-5.20); LYMPHOCYTES PERCENT AUTO 15 % (21-46); MONOCYTES ABSOLUTE AUTO 0.83 K/mm3 (0.16-1.47); MONOCYTES PERCENT AUTO 9 % (4-13); Mean Corpuscular HGB 31.4 pg (26.0-34.0); Mean Corpuscular HGB Conc 34.8 g/dL (31.5-36.5); Mean Corpuscular Volume 90 fL (80-100); Mean Platelet Volume 9.5 fL (9.1-12.4); NEUTROPHILS ABSOLUTE AUTO 6.54 K/mm3 (1.96-9.15); NEUTROPHILS PERCENT AUTO 73 % (41-73); Platelet Count 268 K/mm3 (150-400); Red Blood Cell Count 4.55 M/mm3 (4.30-5.90); White Blood Cell Count 9.01 K/mm3 (4.00-11.30)
[2021-10-03 16:47] LABS: Albumin, Blood 3.2 g/dL (3.4-5.0); Albumin/Globulin Ratio 0.7 (0.8-1.8); Bilirubin, Total 0.9 mg/dL (0.1-1.0); Bun/Creatinine Ratio 18.2 (12.0-20.0); Calcium, Blood 9.7 mg/dL (8.5-10.1); Creatinine, Blood 0.93 mg/dL (0.60-1.20); Globulin, Blood 4.6 g/dL (2.2-4.0); Potassium, Blood 4.5 mmol/L (3.5-5.5); Total Protein, Blood 7.8 g/dL (6.4-8.2)
[2021-10-03 19:24] LABS: Digoxin (Lanoxin) 1.13 ug/mL (0.80-2.00)
[2021-10-03] MEDS ORDERED: ACET500 PO (20:54)
--- NOTE | 2021-10-04 05:54 | NUR ---
SHIFT SUMMARY PT IS ALERT AND ORIENTED X4. PT DENIES CHEST PAIN/PRESSURE, PALPATATIONS OR SOB T/O THE NIGHT. AFTER ARRIVING FROM ED ON DILT GTT 15MG/HR, GTT WAS TURNED OFF AT 2250 WITH A HR IN THE 70-80'S WITH MULTIPLE PAUSES. AT APPROX 0100 PT'S TELE MONITOR REPORTED RUNS OF SVT INTO THE 150'S. PT SUSTAINED ABOVE 120-130'S AND WAS PUT BACK ON DILT GTT 5MG/HR. PT HAS HAD SEVERAL PAUSES IN UP TO 2.8 SEC. HIS HR IS CURRENTLY IN 120'S. HE IS ABLE TO DANGLE AT BEDSIDE AND USE URINAL. BP HAS BEEN ELEVATED. HE HAS REMAINED ON ROOM AIR WITH SATS ABOVE 92%. PT DID NOT WANT TO CHANGE FROM HOME CLOTHES NOR WANT A HOSPITAL GOWN. CALL LIGHT IS WITHIN REACH.
[2021-10-04 05:58] LABS: BASOPHILS ABSOLUTE AUTO 0.04 K/mm3 (0.00-0.23); BASOPHILS PERCENT AUTO 1 % (0-2); EOSINOPHILS ABSOLUTE AUTO 0.01 K/mm3 (0.00-0.68); EOSINOPHILS PERCENT AUTO 0 % (0-6); Hemoglobin 14.7 g/dL (13.5-17.5); IMMATURE GRAN ABSOLUTE AUTO 0.04 K/mm3 (0.00-0.10); IMMATURE GRAN PERCENT AUTO 1 % (0-1); LYMPHOCYTES ABSOLUTE AUTO 0.71 K/mm3 (0.84-5.20); LYMPHOCYTES PERCENT AUTO 9 % (21-46); MONOCYTES PERCENT AUTO 3 % (4-13); Mean Corpuscular HGB 30.9 pg (26.0-34.0); Mean Corpuscular HGB Conc 34.2 g/dL (31.5-36.5); Mean Corpuscular Volume 91 fL (80-100); Mean Platelet Volume 9.6 fL (9.1-12.4); NEUTROPHILS ABSOLUTE AUTO 6.94 K/mm3 (1.96-9.15); NEUTROPHILS PERCENT AUTO 88 % (41-73); Platelet Count 278 K/mm3 (150-400); RDW Coefficient Variation 12.7 % (11.7-14.2); Red Blood Cell Count 4.75 M/mm3 (4.30-5.90); White Blood Cell Count 7.94 K/mm3 (4.00-11.30)
[2021-10-04 06:22] LABS: Alanine Aminotransfer (ALT/SGP 22 U/L (12-78); Albumin/Globulin Ratio 0.6 (0.8-1.8); Alk Phos 84 U/L (50-136); Anion Gap 8 mmol/L (6-16); Aspartate Aminotrans (AST/SGOT 15 U/L (12-37); Bilirubin, Total 0.7 mg/dL (0.1-1.0); Blood Urea Nitrogen 16 mg/dL (8-24); Bun/Creatinine Ratio 21.2 (12.0-20.0); CHOL/HDL RATIO 9.7; CO2, Blood 25 mmol/L (21-32); Calcium, Blood 9.3 mg/dL (8.5-10.1); Chloride, Blood 102 mmol/L (98-108); Cholesterol 243 mg/dL (50-200); Creatinine, Blood 0.75 mg/dL (0.60-1.20); Globulin, Blood 4.8 g/dL (2.2-4.0); Glomerular Filtration Rate 92 (60-); Glucose, Blood 242 mg/dL (70-99); HDL Cholesterol 25 mg/dL (>39); LDL/HDL RATIO 7.6; Low Density Lipoprotein Chol 190 mg/dL (0-110); Potassium, Blood 4.6 mmol/L (3.5-5.5); Sodium, Blood 135 mmol/L (136-145); Total Protein, Blood 7.8 g/dL (6.4-8.2); Triglycerides 142 mg/dL (30-160); Very Low Density Lipoprot Chol 28 mg/dL (6-32)
--- NOTE | 2021-10-04 06:51 | NUR ---
PT HAD A 3.33 SEC PAUSE. DILT GTT DECREASED TO 5. PT DENIES CHEST PAIN/PRESSURE, SOB, PALPITATIONS.
--- NOTE | 2021-10-04 09:45 | NUR ---
AM NOTE: PATIENT ALERT AND ORIENTED X4. NEURO WNL. PERMILA. STATES HE HAS SOME NUMBNESS TO LEFT THUMB. WALKS IND AT HOME. SBA DUE TO DRIP AT THIS TIME. ON ROOM AIR, LUNGS SOUNDING CLEAR. TELE SHOWING AFIB WITH BBB. HR RANGING FROM 90-150'S. CARDIZEM GTT ON AT 5 MG/HR. PAUSES THIS AM AT 0647 AT 3.3 SECONDS AND 0937 AT 2.8 SECONDS. PATIENT DENIES ALL CARDIAC SYMPTOMS. STATES HE IS FEELING "NORMAL". CARDIAC CONSULT PLACED. THIS RN SPOKE WITH DR. OSBORN AND UPDATED ON CARDIAC RHYTHM, RATES, PAUSES, ASYMPTOMATIC STATE, CARIZEM GTT, AND CARDIAC MORN MEDS. PLAN FOR DR. OSBORN TO COME SEE PATIENT. DENIES ABDOMINAL PAIN/NAUSEA. TOLERATING CARDIAC DIET. USING URINAL TO VOID. STATES HE HAS BEEN HAVING DIARRHEA THIS LAST WEEK, NO BM THIS AM. RIGHT FOOT RED/INFLAMMED BUNION THAT IS WARM TO TOUCH. PATIENT STATES PAIN IS RELIEVED ALTHOUGH HE HAS NOT BEEN WALKING ON IT. ORDERS FOR ECHO IN PLACE. PATIENT STATES HE HAS BEEN STRESSED OUT AND RECENTLY FOUND OUT DOCTORS TOLD HIM AND HIS THAT HIS HAS ABOUT A YEAR LEFT TO LIVE. THIS RN EXPRESSED SYMPATHY AND SAT AND TALKED WITH PATIENT FOR AWHILE. DENIES NEEDS AT THIS TIME. CALL LIGHT IN REACH. BED IN LOW LOCKED POSITION. WILL CONTINUE TO MONITOR.
--- NOTE | 2021-10-04 13:30 | NUR ---
SPOKE WITH AUTOMATION ENGINEERING TECHNICIAN, PATIENT HEART RATE TO FAST AT THIS TIME FOR ECHO. PLAN FOR TECH TO COME BACK IN AM TO ASSESS HR. PATIENT REMAINS ON CARDIZEM GTT AT 5 MG/HR. DENIES ALL CARDIAC SYMPTOMS. HR 90-120'S. DR. OSBORN PLAN TO SEE PATIENT.
--- NOTE | 2021-10-04 13:39 | NUR ---
DR. OSBORN IN TO SEE PATIENT. PLAN TO CONTINUE TO OBSERVE PAUSES AND FOR DR. OSBORN TO FOLLOW UP WITH PATIENT IN AM. SLAB LIFTING SUPERVISOR AWARE AND IN COMMUNICATION WITH THIS RN. MARY DRIP REMAINS IN PLACE. WILL MONITOR FOR ORDERS FROM DR. OSBORN.
--- NOTE | 2021-10-04 15:30 | NUR ---
SPOKE WITH DR OSBORN REGARDING CARDIZEM ORDER/NOTE. ORDERS FOR THIS RN TO ADMINISTER PO CARDIZEM PER EMAR SCHEDULE AND WATCH HR TITRATE GTT. PER DR. OSBORN IF HR MAINTAINING CLOSE TO 100, ORDERS FOR THIS RN TO TITRATE CARDIZEM GTT DOWN/OFF. HR AVERAGING 110-130'S AT THIS TIME, CARDIZEM GTT REMAINS AT 5 MG/HR. PO DOSE OF CARDIZEM DUE AT 1630. WILL CONTINUE TO MONITOR.
--- NOTE | 2021-10-04 17:37 | NUR ---
SHIFT SUMMARY: SEE PREVIOUS NOTES FOR UPDATES. NO CHANGES TO NEURO. PATIENT AT TIMES FORGETFUL WHEN WAKING UP FROM NAPS THIS SHIFT. REMAINS ON ROOM AIR, DENIES SOB. UP SBA TO BEDSIDE USING URINAL. TELE CONTINUES TO SHOW AFIB WITH HR AVERAGING 110'S-120'S WILL SPIKE UP AND DOWN RANGING FROM 90-150'S BUT DOES NOT SUSTAIN HIGH OR LOWER HR. CARDIZEM DRIP REMAINS AT 5 MG/HR AT THIS TIME. GOAL TO TITRATE OFF WHEN HR AVERAGES 110 OR BELOW. CONTINUES TO DENY CHEST PAIN/PRESSURE OR TACHY RELATED SYMPTOMS. CONTINUES TO HAVE PAUSES RANGING FROM 2-3 SECONDS, PATIENT REMAINS ASYMPTOMATIC. PLAN FOR ECHO IN AM, HR RUNNING TO FAST THIS MORNING AND AFTERNOON. PATIENT EATING DINNER AT THIS TIME. DENIES NEEDS. DR. HAYS IN TO SEE PATIENT, NO NEW CHANGES. CALL LIGHT IN REACH, BED REMAINS LOCKED AND IN LOWEST POSITION. WILL CONTINUE TO MONITOR AND REPORT OFF TO ONCOMING RN.
--- NOTE | 2021-10-04 18:13 | NUR ---
CARDIZEM DRIP PLACED ON STANDBY AT THIS TIME. HR SUSTAINING UNDER 100. WILL CONTINUE TO MONITOR. PATIENT EATING DINNER.
--- NOTE | 2021-10-04 19:13 | NUR ---
SEE VITAL DOCUMENTATION FOR HR. PATIENT HR TRENDING DOWN AND NOW SUSTAINING 50'S, TOUCHING 40'S. CARDIZEM ON STANDBY OVER [address] COOLEY ORDERS REGARDING HR. PATIENT REMAINS ASYMPTOMATIC WITH LOWER HR, BP REMAINS STABLE. DENIES FEELING DIZZY OR WEAK. UPDATED HEADMASTER/MISTRESS AND DR HAYS IN PERSON. PLAN TO CONTINUE TO WATCH HR. REPORTED OFF TO ONCOMING RN.
--- NOTE | 2021-10-05 06:25 | NUR ---
PT UPDATE PT UP TO BEDSIDE COMMODE FOR BM, HR UP TO 140'S-150'S SUSTAINING IN AFIB RVR. MEDICATED WITH ORDERED 5 MG IV LOPRESSOR. HR CONTINUES 120'S-OCCASIONAL 150'S, DOWN TO 90'S-100'S WITH PAUSES AND BACK UP TO 150'S. PT DENIES CP OR FEELING DIZZY, STATES JUST FEELING "FUZZY". BP CURRENTLY 129/115 (121) FOLLOWING LOPRESSOR IV PUSH.
--- NOTE | 2021-10-05 07:49 | NUR ---
SHIFT SUMMARY PT AOX4 T/O SHIFT OTHER THAN WHEN FIRST AWOKEN FROM SLEEP, EXPERIENCED SOME CONFUSION REGARDING WHERE HE WAS, STATES "FORGOT MY NAME". SHORLTY AFTER AWAKING DISORIENTED PT ABLE TO STATE THIS RN'S NAME, WHERE HE IS, AND WHY HE IS THERE. PT BRADYCARDIC 40'S-5-'S AFIB AT BEGINNING OF SHIFT. GRADUALLY ESTELITA TO 50'S-70'S. PT UP TO USE BATHROOM WITH AID LATER IN EVENING, HR INCREASED TO 120'S-140'S AFIB, BRIEFLY REACHED 150'S, CAME DOWN WHEN BACK TO BED SOME, PAUSES NOTED ON MONITOR CAUSING HR TO FLUCTUATE AND FALL. PT DENIED SX. CALLED RESIDENT DR GARCIA. DISCUSSED CONCERNS D/T BRADYCARDIA AT START OF SHIFT FOLLOWING DC OF CARDIZEM GTT AND ADMIN OF 60 MG OF CARDIZEM. RESIDENT AGREES WITH THIS RN'S CONCERNS, ORDER FOR 30 MG PO TO BE GIVEN ONE TIME AND THEN REASSESS FOR NEED FOR ANOTHER 30 MG PO IF NO EFFECT. MINOR EFFECT, PT HAD FREQUENT PAUSES AND WHEN LAYING AND RESTING IN BED, HR DOWN TO 90'S-LOW 100'S AFIB, OCCASIONALLY RISING TO 120'S-130'S AND THEN 140'S. DISCUSSED CONCERNS WITH DR PORTILLO, ORDER TO HOLD 2ND DOSE OF 30 MG PO CARDIZEM AND CONTINUE TO MONITOR D/T FREQUENT PAUSES AND SOME HYPOTENSION FOLLOWING DOSE OF 30 MG OF CARDIZEM. THIS RN CALLS BACK IN EARLY AM TO NOTIFY DR PORTILLO OF PT HR BEGINNING TO RISE DESPITE PAUSES AND COMING UP TO 130-140 BPM CONSISTENTLY, OCCASIONALLY REACHING 150'S. ORDER FOR 5 MG LOPRESSOR IV PUSH. WHEN THIS RN TO BEDSIDE TO GIVE PUSH, PT REQUESTED TO GET UP FOR BM, WHEN UP TO COMMODE, THIS RN NOTICED HR CLIMBED TO STAY STEADILY 130'S-140'S AND THEN TOUCHING 150'S MORE CONSISTENTLY. PT UNSTEADY ON HIS FEET. LOPRESSOR PUSH ADMINISTERED SLOWLY D/T CONCERNS W/SOME HYPOTENSION WITH FREQUENT PAUSES AND EARLIER DOSE OF CARDIZEM 30 MG PO. PT HR DOES NOT IMMEDIATELY SLOW BEYON 130'S. WHEN THIS RN REPOSITIONS PT FOR COMFORT, TURNS OUT LIGHT, AND LEAVES ROOM, PT HR SEEN DOWN TO 80'S-90'S OCCASIONALLY WITH 2-3 SEC PAUSES SEEN ON THE MONITOR. BACK UP TO 130'S-140'S CONSISTENTLY REPORT BEING GIVEN TO ONCOMING SHIFT. PT'S BREATHING EVEN AND UNLABORED T/O SHIFT, DENIED ANY C/O OF SOB/NAUSEA/LIGHTHEADEDNESS. PT STATED WEIRD SENSATION OF "FUZZINESS" DURING PUSH OF LOPRESSOR. PT UP TO URINATE SEVERAL TIMES T/O SHIFT.
--- NOTE | 2021-10-05 13:15 | NUR ---
AM NOTE: PATIENT ALERT AND ORIENTED X4. STATES HE WANTS TO GO HOME AND IS GOING HOME TODAY. THIS RN PROVIDED EXTENSIVE EDUCATION ON CURRENT ILLNESS AND RISK OF GOING HOME AT THIS POINT. PATIENT SAID HE WOULD STAY A LITTLE LONGER. IRRITABLE WITH CARES AND QUESTIONS. PERRLA. DENIES NUMBNESS/TINGLING. SBA WHEN UP TO BATHROOM. ON ROOM AIR, LUNGS SOUNDING CLEAR. TELE SHOWING AFIB WITH HR 110-130'S THIS AM. HR TRENDING DOWN SINCE PO CARDIZEM GIVEN. 2-3 SECOND PAUSES CONTINUE. AT 1300 PATIENT HAD 4.34 SECOND PAUSE FOLLOWED BY A 4.54 SECOND PAUSE AT 1301. PATIENT REMAINS ASYMPTOMATIC WITH PAUSES AND HIGHER HEART RATE. CALL PLACED TO DR. OSBORN, UPDATED ON PAUSES PLAN TO COME SEE PATIENT. LINE DEPARTMENT SUPERVISOR IN ROOM AT THIS TIME. DENIES ABDOMINAL PAIN/NAUSEA. EATING WELL. RIGHT FOOT REDNESS AND SWELLING IMPROVED COMPARED TO YESTERDAY DAY SHIFT. DENIES PAIN. CALL LIGHT IN REACH, ALTHOUGH PATIENT NOT USING CALL LIGHT DESPITE REINFORCED EDUCATION. WILL CONTINUE TO MONITOR. SEE CHART FOR SAVED STRIP WITH PAUSES.
--- NOTE | 2021-10-05 15:33 | NUR ---
DR. OSBORN AWARE OF HR AND PAUSES. PLAN TO DISCONTINUE CARDIZEM AT THIS TIME WATCH OVERNIGHT AND POSSIBLE DC WITH ZIO PATCH. THIS RN ASKED DR. OSBORN PLAN FOR TONIGHT IF HR STARTS TO SUSTAINS HIGH. DR. OSBORN STATES HE IS OKAY WITH PATIENT TOLERATING HIGH HEART RATE IN 120'S RATHER THAN LOW. THIS RN WILL UPDATE DR. OSBORN IF PATIENT STARTS TO BECOME SYMPTOMATIC WITH LOW HEART RATE. AT THIS POINT PATIENT IS NOT SYMPTOMATIC WITH HR IN 40'S. THIS RN COMMUNICATING CLOSELY WITH NOUGAT CANDY MAKER HELPER AND SENIOR PREMIUM AUDITOR. WILL CONTINUE TO MONITOR BP WELL. PATIENT AGGREABLE TO STAY ANOTHER NIGHT.
--- NOTE | 2021-10-05 18:36 | NUR ---
SHIFT SUMMARY: NO ACUTE CHANGES. PATIENT REMAINS ASYMPTOMATIC WITH HR 40'S AT TIMES TOUCHING 38/39. DENIES ALL CARDIAC SYMPTOMS. VERY HAPPY AND COOPERATIVE WITH CARE THIS EVENING. DR. HAYS IN TO ASSESS PATIENT. AWARE OF HR AND NO NEW ORDERS. WILL CONTINUE TO MONITOR HR AND BP. REMAINS ON ROOM AIR. DENIES PAIN IN RIGHT FOOT. UP IN RECLINER EATING DINNER AND WATCHING TV. SPOKE WITH ON PHONE AND UPDATED ON PLAN. PATIENT NOTED TO BE SLIGHLTY CONFUSED THIS SHIFT WHEN WAKING UP FROM NAPS. REORIENTS EASILY. WILL CONTINUE TO MONITOR AND REPORT OFF TO ONCOMING RN.
--- NOTE | 2021-10-06 01:20 | NUR ---
[address] REPORTS NOTED [address] DEPRESSION. EKG OBTAINED AND SHOWED A-FIB WITH RVR. PT DENIES CX PAIN/ PRESSURE OR SOB. PT WAS ASLEEP BEFORE EKG. WCTM.
--- NOTE | 2021-10-06 05:06 | NUR ---
SHIFT SUMMARY: PT SLEPT COMFORTABLY T/O THE NIGHT. PT HAD A FEW EPISODES OF CONFUSION DURING THE NIGHT WHERE HE BECAME AGITATED. ISSUE RESOLVED W/ PT BEING REDIRECTED TO UNIT. PT ABLE TO RELAX AND REST COMFORTABLY. PT UP AND AMBULATING TO THE BR. STAFFING BRANCH MANAGER INFORMED OF POSSIBLE ST DEPRESSION. CHARGE NURSE Martinez MCNEILL CONTACTED DR. PANG FOR EKG. EKG UNREMARKABLE. PT DENIES CHEST PAIN, PRESSURE, OR SOB. PT CURRENTLY SLEEPING WITH CALL LIGHT IN REACH. PT APPEARS TO BE IN NO DISTRESS. BED ALARM ON. WCTM.
--- NOTE | 2021-10-06 06:13 | NUR ---
0600 HRS PT HRT INCREASING TO 140-170'S. DR OSBORN CALLED AND HE ORDERED PO CARDIZEM FOR PT. PT GHAZAL CX PAIN/ PRESSURE OR SOB. PT BP >90 SYSTOLIC. PT IN NO DISTRESS. WCTM
[2021-10-06 08:24] LABS: Hematocrit 43.1 % (37.0-53.0)
[2021-10-06 08:42] LABS: Albumin, Blood 3.3 g/dL (3.4-5.0); Anion Gap 8 mmol/L (6-16); Blood Urea Nitrogen 45 mg/dL (8-24); Bun/Creatinine Ratio 40.9 (12.0-20.0); CO2, Blood 27 mmol/L (21-32); Calcium, Blood 9.6 mg/dL (8.5-10.1); Chloride, Blood 97 mmol/L (98-108); Glomerular Filtration Rate 69 (60-); Glucose, Blood 329 mg/dL (70-99); Magnesium, Blood 1.9 mg/dL (1.6-2.4); Phosphorus, Blood 3.7 mg/dL (2.5-4.9); Potassium, Blood 4.6 mmol/L (3.5-5.5); Sodium, Blood 132 mmol/L (136-145)
--- NOTE | 2021-10-06 08:45 | NUR ---
INITIAL ASSESSMENT PATIENT ALERT AND ORIENTED X 4, AFEBRILE. PATIENT DENIES PAIN. PATIENT STATES HE HAS NUMBNESS IN L FINGERTIPS BUT THAT IT IS NORMAL FOR HIM. PATIENT SATTING 90% AND GREATER ON RA. PATIENT IN A. FIB, HR 80S TO 160S. SBP LOW 100S TO 120S. DBP 60S TO LOW 100S. PULSES FAINT IN FEET. TRACE EDEMA NOTED TO EXTREMITIES. GI WNL. WNL. SKIN PALE AND COOL. R FOOT REDDENED; PATIENT STATES HE HAS GOUT FLAREUPS. IV FLUSHED AND SALINE LOCKED. PATIENT REPOSITIONING SELF IN BED. BED LOW, CALL LIGHT IN REACH. WILL CONTINUE TO MONITOR PATIENT FREQUENTLY THROUGHOUT SHIFT.
--- NOTE | 2021-10-06 10:10 | NUR ---
DR. OSBORN INFORMED OF RHYTHM CHANGES. ORDERED FOR STAT TROPONIN AND EKG. STATED HE WOULD BE DOWN SHORTLY.
--- NOTE | 2021-10-06 12:30 | NUR ---
PATIENT SLEEPING UPON ENTERING ROOM. PATIENT AFEBRILE. HR IN THE 90S. BP 91/72. NO COMPLAINTS. NO OTHER ACUTE CHANGES TO NOTE ON AT THIS TIME. WILL CONTINUE TO MONITOR.
--- NOTE | 2021-10-06 16:12 | NUR ---
PATIENT AFEBRILE. HR 70S TO LOW 100S. BP 102/56 WITH MAP OF 70. PATIENT HAS NO COMPLAINTS AT THIS TIME. DR. OSBORN UPDATED AGAIN ON PATIENT STATUS. INFORMED OF RECENT VITALS. INFORMED THAT PATIENT TROPONIN 471 EARLIER BUT IMPROVED FROM TROPONIN PREVIOUS TO THAT. INFORMED THAT PATIENT CONTINUES TO HAVE PAUSES AROUND 3 SECONDS IN LENGTH THROUGHOUT DAY. DR. OSBORN STATED THAT HE IS NOT CONCERNED UNLESS PAUSES OVER 4 SECONDS. NO ORDERS RECEIVED AT THIS TIME.
--- NOTE | 2021-10-06 16:20 | NUR ---
DR. OSBORN HERE TO LOOK AT AND COMPARE NEWEST EKG FROM PREVIOUS. STATED THAT HE IS NOT CONCERNED AT THIS TIME. NO ORDERS RECEIVED AT THIS TIME.
--- NOTE | 2021-10-06 18:19 | NUR ---
DR. OSBORN CALLED AND INFORMED THAT PATIENT HAD PAUSE OF 4.63 SECONDS AND THEN ANOTHER AT 5.44 SECONDS. INFORMED THAT HR DOWN TO 40S TO 50S. INFORMED THAT SBP IN THE 60S BUT NOW BACK UP TO 107. DR. OSBORN STATED TO FREDI HERNANDEZ ON EMAR. NO OTHER ORDERS RECEIVED AT THIS TIME.
--- NOTE | 2021-10-06 18:42 | NUR ---
SHIFT SUMMARY PATIENT NAPPED ON AND OFF THROUGHOUT SHIFT. PATIENT REMAINED ALERT AND ORIENTED X 4, AFEBRILE. PATIENT SBA TO INDEPENDENT WHILE UP IN ROOM TO RESTROOM. PATIENT IS SLIGHTLY UNSTEADY ON FEET WHEN FIRST STARTING TO GET UP. PATIENT HAS HAD NO COMPLAINTS OF PAIN THIS SHIFT. PATIENT REMAINED SATTING 90% AND GREATER ON RA. PATIENT REMAINED IN A. FIB, HR 40S TO 160S. SBP 60S TO 120S. PAUSES UNDER 3 SECONDS NOTED THROUGHOUT DAY. HR AND BP ON LOW END DURING PAUSES. PAUSES INCREASED UP TO ALMOST 6 SECONDS BY END OF SHIFT. IRENA AWARE AND MARY PO DC'D. PATIENT TO HAVE PACEMAKER PLACEMENT TOMORROW. GI WNL. WNL. NO CHANGES TO SKIN NOTED. PATIENT REPOSITIONED SELF THROUGHOUT SHIFT. PATIENT IN CHAIR. CALL LIGHT IN REACH. NO COMPLAINTS AT THIS TIME. REPORT WILL BE GIVEN TO ONCOMING SPAGHETTI PRESS HELPER NURSE SHORTLY.
[2021-10-06 20:55] LABS: SARS-Cov-2 (COVID-19) PCR, MMC NEGATIVE (NEGATIVE)
--- NOTE | 2021-10-06 23:26 | NUR ---
CALLED DR FISHER REGARDING PT'S HR IN SUSTAINING ABOVE 130'S INTO THE 150'S. PT DENIES CHEST PAIN OR SOB. DR FISHER SAID SHE WILL BE PUTTING IN FURTHER ORDERS.
--- NOTE | 2021-10-07 00:57 | NUR ---
CALLED DR FISHER REGARDING PT'S HR STILL MAINTAINING IN THE THE HIGH 120'S AND TOOCHING 160'S. MENTIONED THAT THIS NURSE TALKED TO PATIENT AND HE STATED THAT HE WAS FEELING ANXIOUS FOR PROCEDURE IN THE AM. DR FISHER GAVE ORDER OF ATIVAN 1MG PO. ORDER ENTERED INTO EMAR.
--- NOTE | 2021-10-07 06:36 | NUR ---
SHIFT SUMMARY PT IS ALERT AND ORIENTED X4. PT DENEIS CHEST PAIN/PRESSURE, DENIES SOB. VITALS HAVE BEEN STABLE WITH BP BEING ELEVTED AT TIMES. HE IS ON ROOM AIR WITH SATS ABOVE 92%. HE HAS HAD SEVERAL PAUSES T/O THE NIGHT WELL HR BETWEEN [address] FISHER WAS CALLED REGARDING HR. HE ALSO STATED HAVING ANXIETY FOR PROCEDURE AND WAS MEDICATED PER ORDER. PT GOT UP TP THE BATHROOM THIS AM AND HAD A VERY UNSTABLE GAIT. CALL LIGHT IS WITHIN REACH.
--- NOTE | 2021-10-07 14:07 | NUR ---
Bp soft post pacemaker placement, notified Dr Magallanes, no new order, will continue to monitor.
--- NOTE | 2021-10-07 18:17 | NUR ---
SHIFT SUMMARY PT HAS BEEN SLEEPING FOR MOST OF THE AFTERNOON SINCE RETURNING FROM THEIR PROCEDURE. PT HAS DENIED ANY C/O PAIN AT THIS TIME. HEART RATE HAS SLOWED TO 90'S AND TELEMETRY IS SHOWING PACED BEATS. SURGICAL SITE IS CLEAN, DRY, AND INTACT, WITH MINOR SWELLING NOTED. ICE HAS BEEN PLACED ON THE SITE IN INTERVALS. PT HAS STRUGGLED WITH REMEMBERING TO NOT USE THEIR LEFT ARM (OPERATIVE SIDE). PT HAS EXPRESSED FRUSTRATION OVER HOSPITALIZATION IN GENERAL. SBP HAS REMAINED LESS THAN 100 WITH A MAP GREATER THAN 65.
[2021-10-08 04:35] LABS: BASOPHILS PERCENT AUTO 1 % (0-2); EOSINOPHILS ABSOLUTE AUTO 0.13 K/mm3 (0.00-0.68); EOSINOPHILS PERCENT AUTO 1 % (0-6); Hematocrit 45.1 % (37.0-53.0); Hemoglobin 15.7 g/dL (13.5-17.5); IMMATURE GRAN ABSOLUTE AUTO 0.18 K/mm3 (0.00-0.10); IMMATURE GRAN PERCENT AUTO 1 % (0-1); LYMPHOCYTES ABSOLUTE AUTO 1.53 K/mm3 (0.84-5.20); LYMPHOCYTES PERCENT AUTO 12 % (21-46); MONOCYTES ABSOLUTE AUTO 1.08 K/mm3 (0.16-1.47); MONOCYTES PERCENT AUTO 9 % (4-13); Mean Corpuscular HGB 31.1 pg (26.0-34.0); Mean Corpuscular HGB Conc 34.8 g/dL (31.5-36.5); Mean Corpuscular Volume 89 fL (80-100); Mean Platelet Volume 9.5 fL (9.1-12.4); NEUTROPHILS ABSOLUTE AUTO 9.53 K/mm3 (1.96-9.15); NEUTROPHILS PERCENT AUTO 76 % (41-73); Platelet Count 370 K/mm3 (150-400); RDW Coefficient Variation 12.9 % (11.7-14.2); RDW Standard Deviation 42.5 fL (35.1-46.3); Red Blood Cell Count 5.05 M/mm3 (4.30-5.90); White Blood Cell Count 12.55 K/mm3 (4.00-11.30)
--- NOTE | 2021-10-08 04:39 | NUR ---
CALLED DR LEE REGARDING PT'S HR. NO ANSWER AT THIS TIME.
--- NOTE | 2021-10-08 04:52 | NUR ---
CALLED DR FISHER REGARDING PT'S HR BEING ELEVATED AVERAGING IN THE 130'S HITTING THE 160'S. MENTIONED TO DR THAT BP WAS SOFT, PT WAS PAINFUL AND RECIEVED PAIN MEDS, AND THE 3X LOPRESSOR ORDER WITH NOT MUCH IMPROVEMENT. PT DID MENTION FEELING ANXIOUS AND UNABLE TO SLEEP. DR FISHER GAVE ORDER OF ATIVAN 1MG PO.
[2021-10-08 04:59] LABS: Bun/Creatinine Ratio 52.1 (12.0-20.0); Calcium, Blood 9.2 mg/dL (8.5-10.1); Creatinine, Blood 1.19 mg/dL (0.60-1.20); Potassium, Blood 4.1 mmol/L (3.5-5.5)
--- NOTE | 2021-10-08 05:25 | NUR ---
SHIFT SUMMARY PT IS ALERT AND ORIENTED HE WAS FORGETFUL AT TIMES DURING THE NIGHT. PT DENIES CARDIAC RELATED CHEST PAIN/PRESSURE OR SOB. BP WAS SOFT AT BEGINING OF SHIFT AND END OF SHIFT. HR HAS BEEN ELEVATED FOR MOST OF THE NIGHT, LOPRESSOR X3 WAS GIVEN WITH LITTLE CHANGE. PT WAS PAIFUL BUT REFUSED PAIN MEDICATION THEN OPTED TO TAKING IT DUE TO 8/10 PAIN AND EDUCATION ON BENEFIT IN TAKING PAIN MEDICATION. ICE WAS ALSO APPLIED. PT ALSO EXPRESSED FEELINGS OF ANXIETY. SITE IS [facility]. PT REMAINS ON ROOM AIR WITH SATS ABOVE 92%. THIS NURSE CALLED DR FISHER REGARDING ELEVATED HR, ORDERS WERE ENTERED IN EMAR. PT HAS BEEN IN CHAIR SINCE 2400 DUE TO FEELING UNCOMFORTABLE. CALL LIGHT IS WITHIN REACH.
--- NOTE | 2021-10-08 06:07 | NUR ---
CALLED DR FISHER REGARDING NO IMPROVEMENT IN HR. DR FISHER GAVE ORDER TO GIVE 0730 CARDIZEM PO NOW.
--- NOTE | 2021-10-08 07:29 | NUR ---
CALLED DR TRINH TO NOTIFY OF PT FALLING OUT OF CHAIR WHEN TRYING TO GET UP TO THE BATHROOM. DR TRINH WOULD LIKE PT TO BE SEEN BY PHYSICAL THERAPY.
--- NOTE | 2021-10-08 07:38 | NUR ---
CALLED PT'S (JOSE LUIS) TO NOTIFY HER OF PT'S FALL.
--- NOTE | 2021-10-08 10:36 | NUR ---
ASSUMED CARE NOTE: ASSUMED CARE OF PT AT 0700. WHILE OBTAINING REPORT, PT SLIDE OUT OF THE CHAIR, POST FALL ASSESSMENT COMPLETED, VIEW ASSESSMENT. PT IS ALERT AND ORIENTED X 3, PT IS IMPULSIVE AND IRRITABLE STATES HE WANTS TO GO HOME. PT DENIES ANY PAIN, CHEST PAIN, DIZZINESS AT THIS TIME. NIGHT NURSE CALLED AND FAMILY REGARDING FALL. PT HAS AN ABRASION TO RIGHT LATERAL SIDE, NO OTHER INJURIES NOTED FROM FALL. VITALS OBTAINED POST FALL, NO CHANGES NOTED. PT IS IN AFIB WITH HR IN THE 116-150'S, AWARE. PT ON RA WITH SPO2 ABOVE 90%, BILATERAL LUNG SOUNDS ARE CLEAR T/O, NO SHORTNESS OF BREATH NOTED. ACTIVE BOWEL TONES IN ALL QUADRANTS, LAST BM THIS AM, ATTENDS IN PLACE. PT IN CHAIR WITH CHAIR ALARM IN PLACE. CALL LIGHT WITHIN REACH.
--- NOTE | 2021-10-08 17:42 | NUR ---
SHIFT SUMMARY: SEE PREVIOUS NOTES. PT IS ALERT AND ORIENTED X3 AT THIS TIME. PT CAN BECOME CONFUSED AT TIMES WHEN WE AWAKENS FROM NAPS T/O THE DAY. PT MOOD HAS IMPROVED T/O SHIFT, LESS IRRITABLE. HOWEVER, PT STILL WISHES TO GO HOME SOON. PT STATES HE UNDERSTANDS THAT HE NEEDS TO STAY FOR FURTHER TREATMENT AND MONITORING. PT HAD TO BE REMINDED FREQUENTLY TO KEEP LEFT ARM IN THE SLING. PT CONTINUES TO BE ON RA WITH NO RESP DISTRESS NOTED. PT IS IN AFIB WITH OCCASIONAL PACING. HR BETWEEN 60-80'S. EVENING CARDIZEM HELD DUE TO SBP 90'S. PT REMAINED AFEBRILE T/O SHIFT. PT HAD 2 BM THIS SHIFT. URINATING IN TOILET W/O ISSUES. GOOD APPETITE NOTED. CHAIR ALARM IN PLACE. WILL CONTINUE TO MONITOR UNTIL REPORT IS GIVEN TO ONCOMING SHIFT.
--- NOTE | 2021-10-08 22:55 | NUR ---
CALLED DOCTOR CALLED DR FISHER REGARDING SKIPPED CARDIZEM PO DOSE DUE TO LOW BP. NOTIFIED THAT HE IS NOW TOUCHING 120-150'S. DR FISHER GAVE ORDER TO GIVE SKIPPED DOSE AT THIS TIME.
--- NOTE | 2021-10-09 05:26 | NUR ---
SHIFT SUMMARY PT IS ALERT AND ORIENTED X4. HE DENIES CHEST PAIN/PRESSURE OR SOB. VITALS HAVE BEEN STABLE AND HAS REMAINED ON ROOM AIR WITH SATS ABOVE 92%. PT HAD AN INCREASE IN HR AND WAS GIVEN HIS MISSED DOES OF CARDIZEM. HR'S RANGE FROM 70-120'S. HE HAS BEEN A SBA TO BATHROOM DUE TO UNSTEADY GAIT AND RECENT FALL. BED AND CHAIR ALARM HAVE BEEN ACTIVATED. CALL LIGHT IS WITHIN REACH.
--- NOTE | 2021-10-09 11:12 | NUR ---
Dr Francisco in to see patient. Provider stated that patient is permitted to go home today, although he may not drive himself.
[2021-10-09] MEDS ORDERED: ALLO100 PO (12:39)
[2021-10-09] MEDS ORDERED: ATOR40TA PO (12:40)
[2021-10-09] MEDS ORDERED: DILT30 PO (12:40)
[2021-10-09] MEDS ORDERED: Norco 10-325 T1 EACH PO (12:42)
--- NOTE | 2021-10-09 14:18 | NUR ---
SUMMARY Pt discharged home, departing from unit at 1315. Departed via wheelchair accompanied by EMILIA Clay. Pt escorted into taxi that this RN arranged for patient to take him home to [address]. Discharge education given to patient. Discussed activity restrictions, sling usage, new medications, and follow up appointments. Reinforced that pt is not allowed to drive today. Pt verbalizes understanding of education provided. This RN placed call to pt's spouse to notify of discharge. At time of discharge, pt A&O x 4. Answers questions, follows commands, verbalizes needs, although irritable. SpO2 90% or greater RA. Tachycardic this AM, but resolved after AM medications were given. Pt able to ambulate and maintain HR less than 110. Sling [address], discharged with pacemaker box and information.
== END 2021-10-09 14:00 | disposition home or self-care (01) | DRG 243 ==
LOC: ER 15:36 → PCU 20:00
PROVIDERS: Internal Medicine Cardiovascular Disease; Physician Assistant; Student in an Organized Health Care Education/Training Program; ADMIT Internal Medicine
PROC: 0JH604Z Insertion of Pacemaker, Single Chamber into Chest Subcutaneous Tissue and Fascia, Open Approach (ICD-10-PCS; principal; 2021-10-07)
PROC: 02HK3JZ Insertion of Pacemaker Lead into Right Ventricle, Percutaneous Approach (ICD-10-PCS; 2021-10-07)
PROC: 3E0102A Introduction of Anti-Infective Envelope into Subcutaneous Tissue, Open Approach (ICD-10-PCS; 2021-10-07)
DX: I48.19 Other persistent atrial fibrillation (principal); I13.0 Hypertensive heart and chronic kidney disease with heart failure and stage 1 through stage 4 chronic kidney disease, or unspecified chronic kidney disease; I45.5 Other specified heart block; R77.8 Other specified abnormalities of plasma proteins; M10.9 Gout, unspecified; R73.9 Hyperglycemia, unspecified; T38.0X5A Adverse effect of glucocorticoids and synthetic analogues, initial encounter; M79.671 Pain in right foot; Z20.822 Contact with and (suspected) exposure to COVID-19; N18.30 Chronic kidney disease, stage 3 unspecified; I50.9 Heart failure, unspecified; I35.0 Nonrheumatic aortic (valve) stenosis; Z86.73 Personal history of transient ischemic attack (TIA), and cerebral infarction without residual deficits; Z87.01 Personal history of pneumonia (recurrent); Z86.718 Personal history of other venous thrombosis and embolism; Z79.899 Other long term (current) drug therapy; Z79.811 Long term (current) use of aromatase inhibitors; Z79.02 Long term (current) use of antithrombotics/antiplatelets; Z90.49 Acquired absence of other specified parts of digestive tract; Z87.891 Personal history of nicotine dependence; Z98.890 Other specified postprocedural states
CPT/HCPCS: 33207; 36415; 71046; 73630; 80048; 80053; 80061; 80069; 80162; 83690; 83735; 83880; 84443; 84484; 84550; 85014; 85018; 85025; 93005; 93010; 93306; 94760; 96365; 96366; 97116; 97162; 97530; 99152; 99153; 99285-25; A9270; C1786; C1898; J0690; J1580; J1644; J2250; J2370; J3010; J7030; J7040; J7512; Q9967; U0004

== ENCOUNTER 2021-12-03 20:48 | Inpatient (IN) | payer MEDICARE ==
[~2021-12-03] VITALS: Ht 175.3 cm; Wt 72.5 kg
[~2021-12-03 20:48] MED LIST changes: +ACET500 PO; +ALLO100 PO; +ATOR40TA PO; +DILT30 PO; +Norco 10-325 T1 EACH PO
[2021-12-03 21:14] LABS: BASOPHILS ABSOLUTE AUTO 0.13 K/mm3 (0.00-0.23); BASOPHILS PERCENT AUTO 1 % (0-2); EOSINOPHILS ABSOLUTE AUTO 0.31 K/mm3 (0.00-0.68); EOSINOPHILS PERCENT AUTO 3 % (0-6); Hematocrit 44.5 % (37.0-53.0); Hemoglobin 14.1 g/dL (13.5-17.5); IMMATURE GRAN PERCENT AUTO 1 % (0-1); LYMPHOCYTES ABSOLUTE AUTO 2.58 K/mm3 (0.84-5.20); LYMPHOCYTES PERCENT AUTO 23 % (21-46); MONOCYTES ABSOLUTE AUTO 0.92 K/mm3 (0.16-1.47); MONOCYTES PERCENT AUTO 8 % (4-13); Mean Corpuscular HGB 29.9 pg (26.0-34.0); Mean Corpuscular HGB Conc 31.7 g/dL (31.5-36.5); Mean Corpuscular Volume 95 fL (80-100); Mean Platelet Volume 10.3 fL (9.1-12.4); NEUTROPHILS ABSOLUTE AUTO 7.32 K/mm3 (1.96-9.15); NEUTROPHILS PERCENT AUTO 65 % (41-73); Platelet Count 338 K/mm3 (150-400); RDW Coefficient Variation 14.6 % (11.7-14.2); RDW Standard Deviation 50.4 fL (35.1-46.3); Red Blood Cell Count 4.71 M/mm3 (4.30-5.90); White Blood Cell Count 11.36 K/mm3 (4.00-11.30)
[2021-12-03 21:34] LABS: Albumin, Blood 3.4 g/dL (3.4-5.0); Albumin/Globulin Ratio 0.9 (0.8-1.8); Bilirubin, Total 1.1 mg/dL (0.1-1.0); Bun/Creatinine Ratio 26.1 (12.0-20.0); Calcium, Blood 9.2 mg/dL (8.5-10.1); Creatinine, Blood 1.15 mg/dL (0.60-1.20); Globulin, Blood 3.8 g/dL (2.2-4.0); Potassium, Blood 4.4 mmol/L (3.5-5.5); Total Protein, Blood 7.2 g/dL (6.4-8.2)
[2021-12-03 22:57] LABS: Magnesium, Blood 2.1 mg/dL (1.6-2.4)
[2021-12-03 22:58] LABS: Thyroid Stimulating Hormone 4.3 uIU/mL (0.360-4.800)
[2021-12-04 01:08] LABS: Source, Urine Clean Catch
[2021-12-04 01:11] LABS: Appearance, Urine Clear (Clear); Bilirubin, Urine Neg (Neg); Blood, Urine 1+ (Neg); Color, Urine Yellow (P-Yellow); Glucose Qualitative, Urine Neg (Neg); Ketones, Urine 1+ (Neg); Leukocyte Esterase, Urine 1+ (Neg); Nitrite, Urine Neg (Neg); Protein, Urine 3+ (Neg); Specific Gravity, Urine 1.025 (1.003-1.022); Urobilinogen, Urine 1+ (Normal)
[2021-12-04 01:18] LABS: Amorphous Light (0-Heavy); Bacteria Not Seen /hpf; Calcium Oxalate Crystals Many /hpf; Red Blood Cells, Urine 0-2 /hpf (0-2); Squamous Epithelial Cells Not Seen /hpf (Few); White Blood Cells, Urine 0-2 /hpf (0-5)
--- NOTE | 2021-12-04 03:31 | NUR ---
ADMISSION: PT ARRIVED TO UNIT @0245. ABLE TO STAND AND WALK FROM GURNEY TO BED. ALERT AND ORIENTED X4, ABLE TO FOLLOW COMMANDS AND MAKE NEEDS KNOWN. SATING >94% ON RA, BP STABLE, AFEBRILE, PT CURRENTLY AFIB 140'S. CARDIZEM GTT @5MG/HR. LUNG SOUNDS COARSE IN UPPER, DIM IN BASES, RESPIRATIONS EVEN AND UNLABORED. SKIN WARM TO TOUCH, PULSES STRONG AND EQUAL. PT DENIES CP AND SOB AT THIS TIME. ORIENTED TO ROOM AND CALL LIGHT. BED IN LOW.
[2021-12-04 04:23] LABS: BASOPHILS ABSOLUTE AUTO 0.12 K/mm3 (0.00-0.23); BASOPHILS PERCENT AUTO 1 % (0-2); EOSINOPHILS ABSOLUTE AUTO 0.21 K/mm3 (0.00-0.68); EOSINOPHILS PERCENT AUTO 2 % (0-6); Hematocrit 37.2 % (37.0-53.0); Hemoglobin 12.8 g/dL (13.5-17.5); IMMATURE GRAN ABSOLUTE AUTO 0.09 K/mm3 (0.00-0.10); IMMATURE GRAN PERCENT AUTO 1 % (0-1); LYMPHOCYTES ABSOLUTE AUTO 2.05 K/mm3 (0.84-5.20); LYMPHOCYTES PERCENT AUTO 22 % (21-46); MONOCYTES ABSOLUTE AUTO 0.63 K/mm3 (0.16-1.47); MONOCYTES PERCENT AUTO 7 % (4-13); Mean Corpuscular HGB Conc 34.4 g/dL (31.5-36.5); NEUTROPHILS ABSOLUTE AUTO 6.21 K/mm3 (1.96-9.15); NEUTROPHILS PERCENT AUTO 67 % (41-73); Platelet Count 304 K/mm3 (150-400); RDW Coefficient Variation 14.5 % (11.7-14.2); RDW Standard Deviation 47.2 fL (35.1-46.3); Red Blood Cell Count 4.13 M/mm3 (4.30-5.90); White Blood Cell Count 9.31 K/mm3 (4.00-11.30)
[2021-12-04 04:27] LABS: Mean Corpuscular Volume 90 fL (80-100)
[2021-12-04 04:44] LABS: Albumin, Blood 3.2 g/dL (3.4-5.0); Albumin/Globulin Ratio 0.9 (0.8-1.8); Bun/Creatinine Ratio 24.3 (12.0-20.0); Calcium, Blood 8.9 mg/dL (8.5-10.1); Creatinine, Blood 1.11 mg/dL (0.60-1.20); Globulin, Blood 3.4 g/dL (2.2-4.0); Potassium, Blood 3.4 mmol/L (3.5-5.5); Total Protein, Blood 6.6 g/dL (6.4-8.2)
[2021-12-04 04:47] LABS: CPK Creatine Kinase 74 U/L (39-308); Uric Acid, Blood 9.7 mg/dL (3.5-7.2)
[2021-12-04 04:54] LABS: Digoxin (Lanoxin) 0.61 ug/mL (0.80-2.00)
--- NOTE | 2021-12-04 05:21 | NUR ---
UPDATE: HR REMAINS AFIB 160-170'S, CALL PLACED TO MD. NEW ORDERS RECIEVED TO TITRATE CARDIZEM 20MG/HR AND TO BOLUS AMIODARONE CONCURRENTLY.
[2021-12-04] MEDS ORDERED: ELIQUIS5 M3 PO (08:51)
[2021-12-04 13:56] LABS: CPK Creatine Kinase 79 U/L (39-308)
--- NOTE | 2021-12-04 16:13 | NUR ---
PT HR NOTED TO BE HITTING 170s AT TIMES, STILL AFIB RVR. DR DE PAZ NOTIFIED, NEW ORDERS RECEIVED. DR DE PAZ STATES PT'S HR MAY STILL REMAIN HIGH HE IS BEING LOADED WITH DIGOXIN AND THAT MAY TAKE UNTIL MORNING TO TAKE EFFECT. WILL CONTINUE TO MONITOR. PT DENIES CHEST PAIN OR PRESSURE AT THIS TIME, SEE DOCUMENTED VS.
--- NOTE | 2021-12-04 17:49 | NUR ---
PT W ASYMPTOMAIC AFIB RVR T/O THE DAY. STARTED ON DIGOXIN LOADING AND CONTINUES ON CARDIZEM GTT @ 20. HR RANGED FROM 90s TO 170s. SEE DOCUMENTED VS/HR. PT GIVEN LASIX AND CONTINUES TO DIURESE W UO 2875ML THIS SHIFT. PT REPORTS HIS BREATHING FEELS BACK TO BASELINE AT THIS TIME, AND HE REMAINS ON RA. PT IS ANXIOUS TO BE DISCHARGED TOMORROW IF HIS HR IS CONTROLLED. NO OTHER CHANGES TO PT CONDITION NOTED, USES CALL LIGHT FOR NEEDS. CALL LIGHT IN REACH, WILL CONTINUE TO MONITOR AND GIVE REPORT TO NOC SHIFT RN.
[2021-12-05 04:18] LABS: Albumin, Blood 2.8 g/dL (3.4-5.0); Anion Gap 9 mmol/L (6-16); Blood Urea Nitrogen 22 mg/dL (8-24); Bun/Creatinine Ratio 21.8 (12.0-20.0); CO2, Blood 26 mmol/L (21-32); Chloride, Blood 104 mmol/L (98-108); Creatinine, Blood 1.01 mg/dL (0.60-1.20); Glomerular Filtration Rate 76 (60-); Glucose, Blood 145 mg/dL (70-99); Phosphorus, Blood 3.2 mg/dL (2.5-4.9); Potassium, Blood 3.3 mmol/L (3.5-5.5); Sodium, Blood 139 mmol/L (136-145)
--- NOTE | 2021-12-05 04:37 | NUR ---
SHIFT SUMMARY: PT REMAINED ALERT AND ORIENTED X3, AT TIMES FORGETFUL. BP STABLE, AFEBRILE, SATING >94% ON RA. HR RANGED FROM 110-150'S THIS SHIFT. CARDIZEM REMAINS GTT AT 20MG/HR. PT HAD NO COMPLAINTS OF CP OR SO THROUGHOUT THE NIGHT. LUNG SOUNDS CLEAR, RESPIRATIONS EVEN AND UNLABORED. UP TO THE SIDE OF THE BED MUTIPLE TIMES TO VOID, HAD APPROX 800ML OUT THIS SHIFT. NO BM. BED ALARM ON, CALL LIGHT IN REACH, WILL REPORT TO ONCOMING RN.
--- NOTE | 2021-12-05 17:00 | NUR ---
DISCHARGE SUMMARY PT AMBULATED SELF FROM BUILDING ESCORTED BY THIS RN. ALL PERSONAL BELONGINGS AND DISCHARGE INSTRUCTIONS WERE IN THE PT'S POSSESSION AT THE TIME OF DISCHARGE. PT HAD NO QUESTIONS OR CONCERNS AT TIME OF DISCHARGE.
== END 2021-12-05 16:54 | disposition home or self-care (01) | DRG 291 ==
LOC: ER 20:48 → PCU 12-04 02:11
PROVIDERS: Emergency Medicine; Family Medicine; Student in an Organized Health Care Education/Training Program; ADMIT Internal Medicine
DX: I13.0 Hypertensive heart and chronic kidney disease with heart failure and stage 1 through stage 4 chronic kidney disease, or unspecified chronic kidney disease (principal); I50.33 Acute on chronic diastolic (congestive) heart failure; I48.91 Unspecified atrial fibrillation; N18.30 Chronic kidney disease, stage 3 unspecified; Z79.899 Other long term (current) drug therapy; Z90.49 Acquired absence of other specified parts of digestive tract; Z98.890 Other specified postprocedural states; E03.9 Hypothyroidism, unspecified; Z87.891 Personal history of nicotine dependence; M10.9 Gout, unspecified
CPT/HCPCS: 36415; 51798; 71045; 80053; 80069; 80162; 81001; 82550; 83735; 83880; 84443; 84484; 84550; 85025; 93005; 93010; A9270; J0282; J1160; J1650; J1940

== ENCOUNTER 2021-12-08 20:20 | Emergency (ER) | payer MEDICARE ==
[~2021-12-08] VITALS: Ht 175.3 cm; Wt 73.0 kg
[~2021-12-08 20:20] MED LIST changes: +ELIQUIS5 M3 PO
[2021-12-09 00:08] LABS: Source, Urine Voided
[2021-12-09 00:12] LABS: BASOPHILS PERCENT AUTO 1 % (0-2); EOSINOPHILS ABSOLUTE AUTO 0.34 K/mm3 (0.00-0.68); EOSINOPHILS PERCENT AUTO 5 % (0-6); Hematocrit 44.4 % (37.0-53.0); Hemoglobin 14.8 g/dL (13.5-17.5); IMMATURE GRAN ABSOLUTE AUTO 0.05 K/mm3 (0.00-0.10); IMMATURE GRAN PERCENT AUTO 1 % (0-1); LYMPHOCYTES ABSOLUTE AUTO 1.27 K/mm3 (0.84-5.20); LYMPHOCYTES PERCENT AUTO 18 % (21-46); MONOCYTES ABSOLUTE AUTO 0.72 K/mm3 (0.16-1.47); MONOCYTES PERCENT AUTO 10 % (4-13); Mean Corpuscular HGB 30.6 pg (26.0-34.0); Mean Corpuscular HGB Conc 33.3 g/dL (31.5-36.5); Mean Corpuscular Volume 92 fL (80-100); Mean Platelet Volume 9.6 fL (9.1-12.4); NEUTROPHILS ABSOLUTE AUTO 4.75 K/mm3 (1.96-9.15); NEUTROPHILS PERCENT AUTO 66 % (41-73); Platelet Count 289 K/mm3 (150-400); RDW Coefficient Variation 14.4 % (11.7-14.2); RDW Standard Deviation 47.8 fL (35.1-46.3); Red Blood Cell Count 4.84 M/mm3 (4.30-5.90); White Blood Cell Count 7.23 K/mm3 (4.00-11.30)
[2021-12-09 00:21] LABS: Appearance, Urine Clear (Clear); Bilirubin, Urine Neg (Neg); Blood, Urine Neg (Neg); Color, Urine Yellow (P-Yellow); Glucose Qualitative, Urine 2+ (Neg); Ketones, Urine Neg (Neg); Leukocyte Esterase, Urine Neg (Neg); Nitrite, Urine Neg (Neg); Protein, Urine 3+ (Neg); Urobilinogen, Urine NORM (Normal)
[2021-12-09 00:42] LABS: Alanine Aminotransfer (ALT/SGP 49 U/L (12-78); Albumin, Blood 3.2 g/dL (3.4-5.0); Albumin/Globulin Ratio 0.8 (0.8-1.8); Alk Phos 121 U/L (50-136); Anion Gap 7 mmol/L (6-16); Aspartate Aminotrans (AST/SGOT 23 U/L (12-37); Bilirubin, Total 0.7 mg/dL (0.1-1.0); Blood Urea Nitrogen 20 mg/dL (8-24); Bun/Creatinine Ratio 21.9 (12.0-20.0); CO2, Blood 26 mmol/L (21-32); Calcium, Blood 9.1 mg/dL (8.5-10.1); Chloride, Blood 106 mmol/L (98-108); Creatinine, Blood 0.91 mg/dL (0.60-1.20); Digoxin (Lanoxin) 1.37 ug/mL (0.80-2.00); Globulin, Blood 3.8 g/dL (2.2-4.0); Glomerular Filtration Rate 86 (60-); Glucose, Blood 173 mg/dL (70-99); Magnesium, Blood 2.2 mg/dL (1.6-2.4); Potassium, Blood 3.9 mmol/L (3.5-5.5); Sodium, Blood 139 mmol/L (136-145)
[2021-12-09 00:45] LABS: Bacteria Few /hpf; Hyaline Casts 0-2 /lpf (0-2); Red Blood Cells, Urine 0-2 /hpf (0-2); Squamous Epithelial Cells Few /hpf (Few); White Blood Cells, Urine 0-2 /hpf (0-5)
== END 2021-12-09 02:24 | disposition home or self-care (01) ==
LOC: ER 20:20
PROVIDERS: Emergency Medicine
DX: G57.32 Lesion of lateral popliteal nerve, left lower limb (principal); I13.0 Hypertensive heart and chronic kidney disease with heart failure and stage 1 through stage 4 chronic kidney disease, or unspecified chronic kidney disease; I50.9 Heart failure, unspecified; N18.30 Chronic kidney disease, stage 3 unspecified; I48.91 Unspecified atrial fibrillation; Z79.01 Long term (current) use of anticoagulants; Z79.899 Other long term (current) drug therapy; Z86.73 Personal history of transient ischemic attack (TIA), and cerebral infarction without residual deficits; Z87.891 Personal history of nicotine dependence
CPT/HCPCS: 36415; 70450; 72131; 80053; 80162; 81001; 83735; 85025; 93005; 93010

== ENCOUNTER 2023-06-10 16:14 | Emergency (ER) | payer MEDICARE ==
[~2023-06-10] VITALS: Ht 182.9 cm; Wt 68.0 kg
[~2023-06-10 16:14] MED LIST changes: +ATHLETE'S FOO35.4 GM TOP; +METF500 PO; +MUPIROCIN15 GM TOP
[2023-06-10 16:19] VITALS: BP 129/88
[2023-06-10] MEDS ORDERED: AMOCLA875 PO (16:23)
== END 2023-06-10 16:24 | disposition home or self-care (01) ==
LOC: ER 16:14
DX: K02.9 Dental caries, unspecified (principal); I13.0 Hypertensive heart and chronic kidney disease with heart failure and stage 1 through stage 4 chronic kidney disease, or unspecified chronic kidney disease; N18.30 Chronic kidney disease, stage 3 unspecified; I50.9 Heart failure, unspecified; Z86.73 Personal history of transient ischemic attack (TIA), and cerebral infarction without residual deficits; Z79.84 Long term (current) use of oral hypoglycemic drugs; Z79.899 Other long term (current) drug therapy; Z79.01 Long term (current) use of anticoagulants; Z79.2 Long term (current) use of antibiotics; Z87.891 Personal history of nicotine dependence
CPT/HCPCS: 99282

== ENCOUNTER 2023-07-24 14:58 | Inpatient (IN) | payer MEDICARE ==
[2023-07-24] VITALS (9 sets, daily range): BP systolic 81–124; BP diastolic 62–102
[~2023-07-24] VITALS: Ht 170.2 cm; Wt 63.1 kg
[~2023-07-24 14:58] MED LIST changes: +AMOCLA875 PO; +CARTIA XT PO; +CLIN150 PO; -DILT30 PO; -METO50ER PO; +TOPROL XL200 MG PO; +VISBIOME 112.51 EACH PO
[2023-07-24] MEDS ORDERED: Diltiazem HCl 5 MG / ML 5ML Vial IV ONE (15:30)
[2023-07-24] MEDS ORDERED: dilTIAZem HCL 125 MG in Dextrose 5% 100 ML IV SCH ×2 (15:30→17:40)
[2023-07-24 15:42] LABS: BASOPHILS ABSOLUTE AUTO 0.11 K/mm3 (0.00-0.23); BASOPHILS PERCENT AUTO 1 % (0-2); EOSINOPHILS ABSOLUTE AUTO 0.19 K/mm3 (0.00-0.68); EOSINOPHILS PERCENT AUTO 2 % (0-6); Hematocrit 43.3 % (37.0-53.0); Hemoglobin 14.3 g/dL (13.5-17.5); IMMATURE GRAN ABSOLUTE AUTO 0.05 K/mm3 (0.00-0.10); IMMATURE GRAN PERCENT AUTO 1 % (0-1); LYMPHOCYTES ABSOLUTE AUTO 1.43 K/mm3 (0.84-5.20); LYMPHOCYTES PERCENT AUTO 16 % (21-46); MONOCYTES ABSOLUTE AUTO 0.58 K/mm3 (0.16-1.47); MONOCYTES PERCENT AUTO 6 % (4-13); Mean Corpuscular HGB 30.2 pg (26.0-34.0); Mean Corpuscular Volume 92 fL (80-100); Mean Platelet Volume 10.3 fL (9.1-12.4); NEUTROPHILS ABSOLUTE AUTO 6.78 K/mm3 (1.96-9.15); NEUTROPHILS PERCENT AUTO 74 % (41-73); Platelet Count 278 K/mm3 (150-400); RDW Coefficient Variation 14.6 % (11.7-14.2); RDW Standard Deviation 48.9 fL (35.1-46.3); Red Blood Cell Count 4.73 M/mm3 (4.30-5.90); White Blood Cell Count 9.14 K/mm3 (4.00-11.30)
[2023-07-24 16:09] LABS: Alanine Aminotransfer (ALT/SGP 46 U/L (12-78); Albumin, Blood 3.3 g/dL (3.4-5.0); Albumin/Globulin Ratio 0.8 (0.8-1.8); Alk Phos 103 U/L (50-136); Anion Gap 11 mmol/L (3-11); Aspartate Aminotrans (AST/SGOT 27 U/L (12-37); Bilirubin, Total 0.9 mg/dL (0.1-1.0); Blood Urea Nitrogen 15 mg/dL (8-24); Bun/Creatinine Ratio 19.3 (12.0-20.0); CO2, Blood 22 mmol/L (21-32); Calcium, Blood 9.1 mg/dL (8.5-10.1); Chloride, Blood 107 mmol/L (98-108); Creatinine, Blood 0.78 mg/dL (0.60-1.20); Digoxin (Lanoxin) 0.47 ug/mL (0.80-2.00); Glomerular Filtration Rate 90 (60-); Glucose, Blood 266 mg/dL (70-99); Magnesium, Blood 1.4 mg/dL (1.6-2.4); Potassium, Blood 3.7 mmol/L (3.5-5.5); Sodium, Blood 136 mmol/L (136-145); Total Protein, Blood 7.3 g/dL (6.4-8.2)
[2023-07-24] MEDS ORDERED: Magnesium Sulf 2 GM/Water 50ML 50 ML IV ONE (16:30)
[2023-07-24] MEDS ORDERED: Ondansetron HCl 2 MG / ML 2ML Vial IV PRN (17:35)
[2023-07-24] MEDS ORDERED: Potassium Chloride 40 MEQ in NS 250 ML IV STA (17:36)
[2023-07-24] MEDS ORDERED: Enoxaparin 40 MG/0.4 ML SYR SC SCH (18:00)
[2023-07-24 19:13] LABS: International Normalized Ratio 1.06; Prothrombin Time Results 11.3 Sec (9.7-11.5)
[2023-07-24] MEDS ORDERED: Furosemide 10 MG/ML 4ML Vial IV ONE (19:20)
--- NOTE | 2023-07-24 19:50 | NUR ---
NEW ORDERS/[employer] REP CONVERSATION: THIS RN ASSISTED PRIMARY RN WITH CARE, ADMITTING HOSPITALIST ROUNDED, NEW ORDERS FOR IV LASIX, AND PACEMAKER INTERROGATION OBTAINED AND PLACED. THIS RN INTERROGATED PATIENTS' PACEMAKER. APPROIMATELY 20 MINUTES LATER [employer] REP ENDORSED THAT THE PATIENT HAD A POSSIBLE 47 MINUTE OF NSVT WITH A RATE OF 173 BPM AVERAGE. PRIOR TO HIS AFIB RVR EPISODE. ALSO, HE HAD MULTIPLE EPISODES OF SIMILAR NSVT EPISODES BUT SHORTER. PRIOR TO ARRIVAL TO UNIT. NO EXACT SPECIFIED TIMES WERE GIVEN AT THIS TIME. [employer] REP INFORMED BALLET TEACHER PEST CONTROL TECHNICIAN DR. MONTALVO, PRIOR TO THIS WRITERS CONVERSATION. PRIMARY RN SPOKE WITH HOSPITALIST IN REGARDS TO ABOVE.
[2023-07-24] MEDS ORDERED: SOAANZ20 M3 PO (20:11)
[2023-07-25] VITALS (41 sets, daily range): BP systolic 73–130; BP diastolic 53–91
[2023-07-25 02:23] LABS: BASOPHILS ABSOLUTE AUTO 0.08 K/mm3 (0.00-0.23); BASOPHILS PERCENT AUTO 1 % (0-2); EOSINOPHILS ABSOLUTE AUTO 0.18 K/mm3 (0.00-0.68); EOSINOPHILS PERCENT AUTO 2 % (0-6); Hemoglobin 13.8 g/dL (13.5-17.5); IMMATURE GRAN ABSOLUTE AUTO 0.03 K/mm3 (0.00-0.10); IMMATURE GRAN PERCENT AUTO 0 % (0-1); LYMPHOCYTES PERCENT AUTO 20 % (21-46); MONOCYTES ABSOLUTE AUTO 0.64 K/mm3 (0.16-1.47); MONOCYTES PERCENT AUTO 8 % (4-13); Mean Corpuscular HGB 30.3 pg (26.0-34.0); Mean Corpuscular HGB Conc 33.7 g/dL (31.5-36.5); Mean Corpuscular Volume 90 fL (80-100); Mean Platelet Volume 10.4 fL (9.1-12.4); NEUTROPHILS ABSOLUTE AUTO 5.34 K/mm3 (1.96-9.15); NEUTROPHILS PERCENT AUTO 68 % (41-73); Platelet Count 260 K/mm3 (150-400); RDW Coefficient Variation 14.7 % (11.7-14.2); RDW Standard Deviation 48.9 fL (35.1-46.3); Red Blood Cell Count 4.55 M/mm3 (4.30-5.90); White Blood Cell Count 7.87 K/mm3 (4.00-11.30)
[2023-07-25 02:33] LABS: Albumin, Blood 3.2 g/dL (3.4-5.0); Albumin/Globulin Ratio 0.9 (0.8-1.8); Bilirubin, Total 1.3 mg/dL (0.1-1.0); Bun/Creatinine Ratio 16.8 (12.0-20.0); Calcium, Blood 8.8 mg/dL (8.5-10.1); Creatinine, Blood 0.71 mg/dL (0.60-1.20); Globulin, Blood 3.7 g/dL (2.2-4.0); Potassium, Blood 3.5 mmol/L (3.5-5.5); Total Protein, Blood 6.9 g/dL (6.4-8.2)
--- NOTE | 2023-07-25 05:08 | NUR ---
SHIFT SUMMARY ASSUMED CARE OF PT AT 1900. PT IS A/OX4. HEART SOUNDS IRREGULAR. PT AFIB T/O THE NOC FROM 80-140BPM WHEN STANDING. PT HAS 2+ PITTING DEMEA IN LEGS. PT USED URNAL AT BEDSIDE. PT ON DILT GTT T/O THE NOC. BP STABLE, HAD NO COMPLAINTS. PT WORRIED ABOUT BEING ABLE TO PAY FOR HOSPITAL BILL.
[2023-07-25] MEDS ORDERED: Insulin Human Lispro 100 Units/ML 3ML Syringe SC SCH ×2 (07:30→21:00)
[2023-07-25] MEDS ORDERED: Digoxin 0.25 MG/ML 2ML Amp IV ONE (08:10)
[2023-07-25] MEDS ORDERED: FLOMAX0.4 MG PO (08:20)
[2023-07-25] MEDS ORDERED: ATOR40TA PO (08:24)
[2023-07-25] MEDS ORDERED: Apixaban 5 MG Tab PO SCH (09:00)
[2023-07-25] MEDS ORDERED: Potassium Chloride 20 MEQ TabCR PO ONE (09:00)
[2023-07-25] MEDS ORDERED: Metoprolol Succinate 50 MG TABCR PO SCH (09:00)
[2023-07-25] MEDS ORDERED: dilTIAZem HCL 240 MG CAP.CD PO SCH (09:00)
[2023-07-25] MEDS ORDERED: Digoxin 0.125 MG Tab PO SCH (09:00)
[2023-07-25] MEDS ORDERED: Furosemide 10 MG/ML 4ML Vial IV SCH (09:00)
[2023-07-25] MEDS ORDERED: Torsemide 20 MG TAB PO SCH (09:00)
--- NOTE | 2023-07-25 10:42 | NUR ---
DR. SOTO CAME AND EVALUATED THE PT THIS MORNING. HE ORDERED HIS HOME MEDICATIONS AND WAS GOING TO HAVE ME GIVE A DIGOXIN PUSH. WHEN I WENT TO ADMINISTER THE MEDICATIONS THE PT WAS AFIB 80'S-100'S. I CALLED DR. SOTO AND HE TOLD ME TO HOLD THE DIGOXIN IV. THE CARDIZEM GTT HAS BEEN TITRATIED OFF AFTER ORAL MEDICAITONS GIVEN. BP STABLE. LIVER TRIMMER CAME TO THE ROOM AND DID THE PT'S ECHO THIS MORNING.
--- NOTE | 2023-07-25 13:58 | NUR ---
WHILE THIS TRUMPET PLAYER WAS AT BREAK, UBALDO Feliciano RN WAS COVERING. THE PT WAS GRUNTING OUT AND ANOTHER NURSE LILIA Henriquez RN WENT TO CHECK ON THE PT. SHE WAS SOB. VS REMAINED STABLE. HE SAID A FEW THINGS ABOUT MOVING THE BED, WALKING DOWN THE [place], THAT WERE OUT OF HIS NORMAL (THESE EVENTS DID NOT HAPPEN). WHEN ASKED ORIENTATION QUESTIONS HE WAS ORIENTED. UBALDO GEE OPENED THE PT'S CURTAINS, GRABBED THE PT HIS PHONE BECAUSE HE HAS BEEN ANXIOUS ABOUT CALL HIS , AND PLACED HIM ON A COUPLE L NC WHILE HE WAS ANXIOUS. PT IS FEELING BETTER AT THIS TIME. THIS TRUMPET PLAYER REASSUMED CARE AND REASSESSED THE PT. HE STATED HE IS GETTING HIMSELF WORKED UP ABOUT NOT GETTING AHOLD OF HIS . HE IS ON 1L NC AT THIS TIME.
--- NOTE | 2023-07-25 14:29 | NUR ---
I CALLED DR. SAAB BECAUSE AT 1417ISH THE PT WAS REPORTING SHARP SHOTOING ABD PAIN WHERE HIS HERNIAS ARE AND WHEN RECHECKING THE PT'S BLOOD PRESSURE HE IS [id number]. DR. SAAB ORDERED MIDODRINE AND WASNT ME TO CHECK 30 MINS AFTER ADMINISTRATION. ALSO, SHE ORDERED A CT OF ABD TO R/O ANY STRANGUALTION WHERE THE PT'S HERNIAS ARE. SEE NOTES FOR UPDATES.
[2023-07-25] MEDS ORDERED: Midodrine 5 MG Tab PO SCH ×2 (14:35→18:00)
[2023-07-25] MEDS ORDERED: NS 1,000 ML IV SCH (15:20)
--- NOTE | 2023-07-25 15:20 | NUR ---
I CALLED DR. SAAB ABOUT THE PT BECAUSE HE STARTED TO C/O CONSTANT NECK PAIN AND IT WAS INTERFERING WITH HIS BREATHING. HE ROLLED ONTO HIS SIDE AND WENT MORE [place] IN COLOR. I HAD ANOTHER NURSE ASSESS THE PT WITH ME AND WE WERE CONCERNED IT WAS CARDIAC RELATED. DR. SAAB CAME TO BEDSIDE, ORDERED A STAT TROPONIN, AND AFTER ASSESSING THE PT SHE WANTED THE PT IN ICU. BP REMAINS HYPOTENSIVE, BUT STABLE. DR. SOTO MADE AWARE OF THE TRANSFER. AFTER GIVING REPORT TO THE ICU NURSE IVAN BAH RN, THE PT STARTED GASPING FOR AIR AND WENT DIAPHORETIC. AT THIS TIME BELINDA B RN AND I WERE TRANSFERING THE PT TO ROOM ICU 02. IVAN GEE AND KASI LO RN WERE NOTIFIED OF THE INCREASED CHANGES WITHIN A FEW MINUTES OF GIVING REPORT. I CALLED THE PT'S AND NOTIFIED HER THAT THE PT WAS TRANSFERED TOO ROOM ICU 2. ASSEMBLY CLEANER NOTIFIED THAT DR. SAAB WANTS THE PT MORE STABLE BEFORE GOING DOWN TO CT. NOT FURTHER NOTES FROM THIS NURSE.
--- NOTE | 2023-07-25 16:09 | NUR ---
ARRIVED TO ICU PATIENT ARRIVED TO ICU VIA BED. 2LPM VIA NC IN PLACE WITH SPO2 MID TO HIGH 90'S. PATIENT MAKES EYE CONTACT AND RESPONDS TO VERBAL STIMULI, ANSWERS QUESTIONS APPROPRIATELY. LUGN SOUNDS CLEAR T/O, STATES DYSPNEA IS IMPROVED. MONITOR SHOWS 100% V-PACED RHYTHM WITH BP SOFT- SBP 80'S AND MAPS GREATER THAN 65. FAINT PEDAL PULSES AND STRONG RADIAL PULSES. 1+ EDEMA IN BLE. PATIENT HAD MOD SOFT BM UPON ARRIVING TO ICU. NS @ 200ML/HR STARTED AND LEVOPHED PLACED IN FRIDGE. REPORT GIVEN TO GERARD SMALL AFTER ARRIVAL.
--- NOTE | 2023-07-25 17:42 | NUR ---
ASSUMED CARE AT 1600. PT HAS BEEN LYING IN BED RESTING, THEN WILL START TO BREATH DEEP AND FAST FOR ABOUT 30 SECONDS AND THEN RELAX ON HIS OWN. PT SAYS HE IS HAVING INTERMITTENT ABDOMINAL PAINS. HAD BM JUST BEFORE ASSUMING CARE. MAP HAS BEEN ABOVE 65 SO LEVOPHED ON HOLD. SPO2 98% ON RA. PT HAS BEEN ANXIOUS, ASKING THIS NURSE IF HE IS JUST BEING LEFT TO . LOTS OF REASSURRANCES GIVEN. EDUCATED PT ON MONITORING AT THE NURSES STATION AND PLAN OF CARE. PT TAKEN DOWN FOR ABDOMINAL CT AND TOLERATED IT WELL. BACK IN BED RESTING NOW. PT DIDN'T WANT TO EAT DINNER, BUT HAS BEEN DRINKING WATER.
[2023-07-25] MEDS ORDERED: Insulin Glargine-Yfgn 100 Unit/mL 3 ML SYR SC SCH (20:15)
--- NOTE | 2023-07-25 23:17 | NUR ---
ASSUMED CARE AT 1900 PT IS USING THE URINAL AT BEDSIDE DURING SHIFT CHANGE. HE IS ORIENTED TO SELF AND FOLLOWS DIRECTIONS BUT NOT TO PLACE OR DATE; HE MOVES ALL EXTREMITIES AND CAN BE IMPULSIVE TO GET OUT OF BED. SPO2 >95% ON 4L NC. AFEBRILE. 100% PACED WITH HR 60. SBP 80-90'S WITH MAP IN 60'S; MIDODRINE GIVEN DURING THE DAY AND LEVOPHED ORDERED BUT NOT INFUSING. NS INFUSING AT 200ML/HR. HS CBG READ 300 WITH NO INSULIN COVERAGE; CALL MADE TO DR LEE WHO PROVIDED ORDERS FOR AC/HS HUMULOG AND ADDING LONG ACTING INSULIN. SEE SHIFT ASSESSMENT FOR FULL ASSESSMENT.
[2023-07-26] VITALS (39 sets, daily range): BP systolic 83–126; BP diastolic 53–98
[2023-07-26 03:46] LABS: Calcium, Blood 9.1 mg/dL (8.5-10.1); Creatinine, Blood 1.16 mg/dL (0.60-1.20); Magnesium, Blood 1.9 mg/dL (1.6-2.4); Potassium, Blood 4.2 mmol/L (3.5-5.5)
--- NOTE | 2023-07-26 06:22 | NUR ---
END OF SHIFT SUMMARY NO ACUTE EVENTS OVERNIGHT. HE WAS UP TO USE THE URINAL SEVERAL TIME T/O THE SHIFT; HE IS A ONE PERSON ASSIST ALONG WITH LINE MANAGMENT. HE CONT TO BE A/O X2; FREQUENTLY ASKED "WHERE IS JOSE LUIS?" AND "WHERE ARE THE CATS?; BED ALARM IN PLACE D/T IMPULSIVITY. PT ENDED THE SHIFT ON RA WITH SPO2 >95%. AFEBRILE. PT STARTED THE SHIFT BEING 100% V-PACED WITH RATE 60; AROUND 0130 HIS RATE STARTED TO SLOWLY INCREASE AND IS NOW IN AFIB RHYTHM WITH RATE 80-100. SBP 80-110; MAP >65. ONE BM THIS SHIFT. SALINE LOCKED AT THIS TIME. WILL REPORT TO AM RN WHEN AVAILABLE.
--- NOTE | 2023-07-26 10:54 | NUR ---
Spiritual care visit conducted. Patient is sitting on a chair and alert. He immediately tells me about his medical issues, his 2 tours in the [employer] and his time in [place]. He talks about his struggles and anxiety. I provided therapeutic listeingin and prayer. Patient responded well and showed signs of greater peace. I will continue to remain available to patient and family
--- NOTE | 2023-07-26 11:56 | NUR ---
REPORT GIVEN TO GERARD WORTHY. PATIENT BEING TRANSFERRED TO PCU
--- NOTE | 2023-07-26 12:10 | NUR ---
CARE ASSUMPTION THIS RN ASSUMING CARE OF PT. PT CURRENTLY ALERT AND COMMUNICATING APPROPRIARTELY W MOMENTS OF CONFUSION. PT'S BP WNL SO 1300 DOSE OF MIDODRINE HELD PER DR. SAAB. MONITOR SHOWING AFIB 80'S-120'S DEPENDING ON ACTIVITY. PT SITTING IN BED EATING LUNCH ON RM AIR. PT DENYING ANY NEEDS AT THIS TIME.
[2023-07-26] MEDS ORDERED: Midodrine 5 MG Tab PO PRN (15:40)
--- NOTE | 2023-07-26 18:02 | NUR ---
DAY SHIFT SUMMARY PT REMAINS CONFUSED BUT COOPERATIVE W CARE THIS SHIFT. PT'S MONITOR SHOWING AFIB 80'S-140 DEPENDING ON ACTIVITY. OCCASIONAL PACED BEATS. BP WNL AND STABLE W PT ONLY RECIEVING ONE DOSE OF MIDODRINE THIS SHIFT. SPO2 >92% ON RM AIR. PT AFEBRILE THIS SHIFT. PT ABLE TO TOLERATE AMBULATION TO BATHROOM W ONE PERSON ASSISTANCE VOIDING WELL. PT TOLERATING PO INTAKE THIS SHIFT. PT DENYING ANY PAIN OR NAUSEA THIS SHIFT. WILL REPORT TO ONCOMING RN.
[2023-07-27] VITALS (7 sets, daily range): BP systolic 92–135; BP diastolic 53–104
[2023-07-27 03:49] LABS: BASOPHILS ABSOLUTE AUTO 0.06 K/mm3 (0.00-0.23); BASOPHILS PERCENT AUTO 1 % (0-2); EOSINOPHILS ABSOLUTE AUTO 0.35 K/mm3 (0.00-0.68); EOSINOPHILS PERCENT AUTO 4 % (0-6); Hematocrit 40.5 % (37.0-53.0); Hemoglobin 13.8 g/dL (13.5-17.5); IMMATURE GRAN ABSOLUTE AUTO 0.07 K/mm3 (0.00-0.10); IMMATURE GRAN PERCENT AUTO 1 % (0-1); LYMPHOCYTES ABSOLUTE AUTO 0.79 K/mm3 (0.84-5.20); LYMPHOCYTES PERCENT AUTO 9 % (21-46); MONOCYTES ABSOLUTE AUTO 0.39 K/mm3 (0.16-1.47); MONOCYTES PERCENT AUTO 5 % (4-13); Mean Corpuscular HGB 30.4 pg (26.0-34.0); Mean Corpuscular HGB Conc 34.1 g/dL (31.5-36.5); Mean Corpuscular Volume 89 fL (80-100); Mean Platelet Volume 10.4 fL (9.1-12.4); NEUTROPHILS ABSOLUTE AUTO 7.02 K/mm3 (1.96-9.15); NEUTROPHILS PERCENT AUTO 81 % (41-73); Platelet Count 265 K/mm3 (150-400); RDW Coefficient Variation 14.7 % (11.7-14.2); RDW Standard Deviation 47.8 fL (35.1-46.3); Red Blood Cell Count 4.54 M/mm3 (4.30-5.90); White Blood Cell Count 8.68 K/mm3 (4.00-11.30)
[2023-07-27 04:12] LABS: Bun/Creatinine Ratio 22.5 (12.0-20.0); Calcium, Blood 8.3 mg/dL (8.5-10.1); Creatinine, Blood 0.94 mg/dL (0.60-1.20); Potassium, Blood 3.2 mmol/L (3.5-5.5)
--- NOTE | 2023-07-27 05:20 | NUR ---
SHIFT SUMMARY PT A&Ox3, IS UNSURE OF EVENTS THAT LED TO HIM COMING TO HOSPITAL, CALLS AND COMMUNICATES NEEDS APPROPRIATELY. BP STABLE, AFIB/PACED 70-110's, DENIES CP/PRESSURE. SpO2> 92% RA, DENIES SOB. SBA TO BATHROOM, CONTINENT OF URINE, NO BM THIS SHIFT. NO C/O OF PAIN OR DISCOMFORT. STATES THAT HE IS VERY HOPEFUL OF GOING HOME AFTER STRESS TEST. NO OTHER EVENTS, WILL REPORT TO ONCOMING RN.
[2023-07-27] MEDS ORDERED: Potassium Chloride 20 MEQ TabCR PO ONE (12:00)
[2023-07-27] MEDS ORDERED: Aminophylline 250MG / 10ML 10 ML Vial ONE (13:37)
[2023-07-27] MEDS ORDERED: Regadenoson 0.4 MG/5 ML SYRINGE ONE (13:37)
--- NOTE | 2023-07-27 17:18 | NUR ---
SHIFT SUMMARY PT ALERT, ORIENTED X3. FORGETFUL AND ANXIOUS AT TIMES. PT SBA IN ROOM. PT DENIES PAIN, CHEST PAIN/PRESSURE, SOB, NAUSEA, DIZZINESS AND NUMB/TINGLING. TELE AFIB WITH OCCASIONAL PACED BEATS, THIS AM 130-140; TRENDING DOWN 80-120, ACT 130-150'S, STARTED AMIO THIS AFTERNOON AND PLANS FOR MARY/CARDIOVERSION TOMORROW. NPO AT MIDNIGHT. SPO2 >90% ON RA, BREATHING EVEN AND UNLABORED. ABD SOFT, NONTENDER, +BT. TRACE EDEMA NOTED TO BLE. OTHER VSS. NO OTHER ACUTE CHANGES NOTED. WILL CONTINUE TO MONITOR.
--- NOTE | 2023-07-28 04:49 | NUR ---
1915 Assumed care of pt, bedside report completed. Shift plan of care reviewed, all questions answered. Pt with uneventful shift. HR well controlled 90-110 throughout shift. Amio gtt continues at 0.5mg/hr. Pt denies pain. NPO at midnoc for anticipated procedure today. Please see full assessment for additional details. No further complaints or concerns at this time, will continue to monitor.
[2023-07-28 05:31] LABS: Bun/Creatinine Ratio 22.8 (12.0-20.0); Calcium, Blood 8.5 mg/dL (8.5-10.1); Creatinine, Blood 0.84 mg/dL (0.60-1.20); Magnesium, Blood 1.7 mg/dL (1.6-2.4); Potassium, Blood 3.1 mmol/L (3.5-5.5)
[2023-07-28] MEDS ORDERED: Potassium Chloride 40 MEQ in NS 250 ML IV STA (06:53)
[2023-07-28 07:47] VITALS: BP 129/89
--- NOTE | 2023-07-28 08:00 | NUR ---
INITIAL ASSESSMENT PATIENT ALERT AND ORIENTED X 4, AFEBRILE. PATIENT WEAK BUT ABLE TO MOVE ALL EXTREMITIES. PATIENT DENIES PAIN. PATIENT SATTING 90% AND GREATER ON RA. PATIENT IN A. FIB WITH BBB AND OCCASIONAL V-PACED BEATS. HR IN THE 80S. SBP IN THE 120S. 1+ EDEMA NOTED TO BILAT FEET AND ANKLES. GI AND WNL. SKIN APPEARS FRAGILE BUT WNL. AMIODARONE DRIP INFUSING AT 0.5 MG/ MINUTE. BED LOW, CALL LIGHT IN REACH. CARE CONTINUES.
[2023-07-28] MEDS ORDERED: Mag Sulfate 1 GM/D5% 100ML 100 ML IV STA (08:05)
[2023-07-28] MEDS ORDERED: Benzocaine Oral Spray 0.5ML UD ONE (08:17)
[2023-07-28 08:55] VITALS: BP 120/92
[2023-07-28 12:03] VITALS: BP 143/98
--- NOTE | 2023-07-28 12:05 | NUR ---
PATIENT AFEBRILE. HR AT 100. SBP IN THE 140S. BLOOD SUGAR OF 167. NO OTHER ACUTE CHANGES TO NOTE ON AT THIS TIME. DENIES PAIN. CARE CONTINUES.
[2023-07-28] MEDS ORDERED: AMIODARONE HCL400 M2 PO (13:27)
[2023-07-28] MEDS ORDERED: LANTUS SOL100 UNIT/1 SC (14:18)
--- NOTE | 2023-07-28 14:36 | NUR ---
SHIFT SUMMARY PATIENT REMAINED ALERT AND ORIENTED X 4, AFEBRILE. PATIENT HAS HAD NO COMPLAINTS OF PAIN THIS SHIFT. PATIENT HAS REMAINED WEAK BUT SBA WHEN OUT OF BED. PATIENT SATTING 90% AND GREATER ON RA. PATIENT IN A.FIB WITH BBB AND OCCASIONALLY V-PACED, HR 80S TO LOW 100S. SBP 120S TO 140S. PATIENT HAD GOOD APPETITE. NO BM THIS SHIFT. PATIENT HAD ADEQUATE URINE OUTPUT THIS SHIFT. NO CHANGES TO SKIN NOTED. AMIODARONE FINISHED AND DC'D THIS SHIFT. PATIENT RECEIVED POTASSIUM AND MAGNESIUM REPLACEMENTS THIS SHIFT. BED LOW, CALL LIGHT IN REACH. PATIENT WILL BE DISCHARGING TO HOME SHORTLY.
--- NOTE | 2023-07-28 16:18 | NUR ---
PATIENT EDUCATED ON ALL DISCHARGE INFORMATION AND INSTRUCTIONS. PATIENT INFORMED THAT MEDICATIONS FAXED AND CALLED IN TO [facility]. PATIENT INFORMED OF MED CHANGES. PATIENT GIVEN WRITTEN RX FOR GLUCOSE MONITORING SUPPLIES TO TAKE TO HIS PHARMACY. PATIENT ASKED EARLIER WHO WAS PICKING HIM UP AND HE STATED HE HAD HIS CAR IN THE PARKING LOT AND WOULD BE DRIVING HIMSELF HOME. PATIENT INFORMED THAT STAFF WOULD FEEL MORE COMFORTABLE WITH PATIENT CALLING A FRIEND OR FAMILY MEMBER FOR A RIDE. PATIENT REFUSED AND STATED THAT HE FELT COMFORTABLE DRIVING HIMSELF HOME. PATIENT ABLE TO AMBULATE WITH SBA. PATIENT TAKEN OUT TO CAR IN WHEELCHAIR. ALL BELONGINGS TAKEN BY PATIENT. DISCHARGE COMPLETE.
== END 2023-07-28 16:26 | disposition home or self-care (01) | DRG 280 ==
LOC: ER 14:58 → PCU 14:59 → ICUE 07-25 14:58 → PCU 07-26 12:25
PROVIDERS: Internal Medicine; Student in an Organized Health Care Education/Training Program; ADMIT Internal Medicine
DX: I48.91 Unspecified atrial fibrillation (principal); I50.23 Acute on chronic systolic (congestive) heart failure; I21.A1 Myocardial infarction type 2; I13.0 Hypertensive heart and chronic kidney disease with heart failure and stage 1 through stage 4 chronic kidney disease, or unspecified chronic kidney disease; R10.31 Right lower quadrant pain; I95.9 Hypotension, unspecified; N18.30 Chronic kidney disease, stage 3 unspecified; E11.22 Type 2 diabetes mellitus with diabetic chronic kidney disease; E87.6 Hypokalemia; E83.42 Hypomagnesemia; I42.8 Other cardiomyopathies; J44.9 Chronic obstructive pulmonary disease, unspecified; E78.5 Hyperlipidemia, unspecified; E03.9 Hypothyroidism, unspecified; I35.0 Nonrheumatic aortic (valve) stenosis; Z79.01 Long term (current) use of anticoagulants; Z95.0 Presence of cardiac pacemaker; Z79.899 Other long term (current) drug therapy; Z79.84 Long term (current) use of oral hypoglycemic drugs; Z79.2 Long term (current) use of antibiotics; Z90.49 Acquired absence of other specified parts of digestive tract; Z98.890 Other specified postprocedural states; Z87.891 Personal history of nicotine dependence; Z91.148 Patient's other noncompliance with medication regimen for other reason; Z86.73 Personal history of transient ischemic attack (TIA), and cerebral infarction without residual deficits; Z87.19 Personal history of other diseases of the digestive system
CPT/HCPCS: 36415; 71045; 74177; 78452; 80048; 80053; 80162; 82947; 83036; 83735; 83880; 84443; 84484; 85025; 85610; 93005; 93010; 93017; 93279; 93306; 96365; 96366; 96372; 96374; 96375; 96376; 99285-25; A9270; A9500; G0378; J0280; J0282; J1650; J1815; J1940; J2785; J3475; J3480; J7030; J7050; J7060; Q9967

== ENCOUNTER 2024-04-26 13:43 | Emergency (ER) | payer MEDICARE ==
[~2024-04-26] VITALS: Ht 170.2 cm; Wt 63.5 kg
[~2024-04-26 13:43] MED LIST changes: +AMIODARONE HCL400 M2 PO; +FLOMAX0.4 MG PO; +LANTUS SOL100 UNIT/1 SC; +SOAANZ20 M3 PO
[2024-04-26 13:55] VITALS: BP 163/92
== END 2024-04-26 15:23 | disposition home or self-care (01) ==
LOC: ER 13:43
DX: K04.7 Periapical abscess without sinus (principal); K02.9 Dental caries, unspecified; I25.2 Old myocardial infarction; I13.0 Hypertensive heart and chronic kidney disease with heart failure and stage 1 through stage 4 chronic kidney disease, or unspecified chronic kidney disease; I50.9 Heart failure, unspecified; N18.30 Chronic kidney disease, stage 3 unspecified; I48.91 Unspecified atrial fibrillation; J44.9 Chronic obstructive pulmonary disease, unspecified; Z87.891 Personal history of nicotine dependence; Z79.4 Long term (current) use of insulin; Z79.899 Other long term (current) drug therapy; Z91.048 Other nonmedicinal substance allergy status
CPT/HCPCS: 99282

== ENCOUNTER 2024-06-27 04:43 | Inpatient (IN) | payer MEDICARE ==
[2024-06-27] VITALS (19 sets, daily range): BP systolic 93–142; BP diastolic 50–91
[~2024-06-27] VITALS: Ht 175.3 cm; Wt 62.0 kg
[~2024-06-27 04:43] MED LIST changes: -AMIODARONE HCL400 M2 PO; +Amiodarone HCl200 MG PO; +SOAANZ20 M1 PO; -SOAANZ20 M3 PO
[2024-06-27 04:54] LABS: Source, Urine Voided
[2024-06-27 04:59] LABS: Bilirubin, Urine Neg (Neg); Blood, Urine Neg (Neg); Glucose Qualitative, Urine 4+ (Neg); Ketones, Urine Neg (Neg); Leukocyte Esterase, Urine Neg (Neg); Nitrite, Urine Neg (Neg); Protein, Urine Neg (Neg); Urobilinogen, Urine NORM (Normal)
[2024-06-27 05:06] LABS: Appearance, Urine Clear (Clear); Color, Urine Yellow (P-Yellow)
[2024-06-27 05:14] LABS: BASOPHILS ABSOLUTE AUTO 0.06 K/mm3 (0.00-0.23); BASOPHILS PERCENT AUTO 1 % (0-2); EOSINOPHILS ABSOLUTE AUTO 0.06 K/mm3 (0.00-0.68); EOSINOPHILS PERCENT AUTO 1 % (0-6); Hematocrit 41.3 % (37.0-53.0); Hemoglobin 14.9 g/dL (13.5-17.5); IMMATURE GRAN ABSOLUTE AUTO 0.06 K/mm3 (0.00-0.10); IMMATURE GRAN PERCENT AUTO 1 % (0-1); LYMPHOCYTES ABSOLUTE AUTO 1.24 K/mm3 (0.84-5.20); LYMPHOCYTES PERCENT AUTO 13 % (21-46); MONOCYTES ABSOLUTE AUTO 0.72 K/mm3 (0.16-1.47); MONOCYTES PERCENT AUTO 8 % (4-13); Mean Corpuscular HGB 30.9 pg (26.0-34.0); Mean Corpuscular HGB Conc 36.1 g/dL (31.5-36.5); Mean Corpuscular Volume 86 fL (80-100); Mean Platelet Volume 10.2 fL (9.1-12.4); NEUTROPHILS ABSOLUTE AUTO 7.45 K/mm3 (1.96-9.15); NEUTROPHILS PERCENT AUTO 78 % (41-73); Platelet Count 222 K/mm3 (150-400); RDW Coefficient Variation 12.4 % (11.7-14.2); RDW Standard Deviation 38.8 fL (35.1-46.3); Red Blood Cell Count 4.82 M/mm3 (4.30-5.90); White Blood Cell Count 9.59 K/mm3 (4.00-11.30)
[2024-06-27 05:37] LABS: Albumin, Blood 3.3 g/dL (3.4-5.0); Albumin/Globulin Ratio 0.8 (0.8-1.8); Calcium, Blood 9.1 mg/dL (8.5-10.1); Creatinine, Blood 1.08 mg/dL (0.60-1.20); Globulin, Blood 4.1 g/dL (2.2-4.0); Potassium, Blood 3.9 mmol/L (3.5-5.5); Total Protein, Blood 7.4 g/dL (6.4-8.2)
[2024-06-27] MEDS ORDERED: NS 1,000 ML IV SCH ×2 (05:40→05:55)
[2024-06-27] MEDS ORDERED: Insulin Human Regular 100 UNIT in NS 100 ML IV SCH (05:40)
[2024-06-27] MEDS ORDERED: Ondansetron HCl 2 MG / ML 2ML Vial IV PRN (05:55)
[2024-06-27 06:08] LABS: Magnesium, Blood 2.2 mg/dL (1.6-2.4)
[2024-06-27] MEDS ORDERED: Enoxaparin 40 MG/0.4 ML SYR SC SCH (09:00)
--- NOTE | 2024-06-27 10:20 | NUR ---
ADMIN TO ICU: ADMITTED TO ICU5 VIA ER [facility], TRANSFFER FROM GURNEY TO BED VIA SLIDE SHEET AT (0740). PT IS A&OX2 TO PERSON AND PLACE G[facility]14. THEY ARE ABLE TO FOLLOW COMMANDS. PT DENIES ANY CHEST PAIN, SOB, OR PAIN AT THIS TIME. THEY ALSO MENTIONED THAT THEY DON'T REMEMBER THE LAST TIME THEY ATE FOOD, BUT THEY HAVE BEEN DRINKING A LOT OF FRUIT JUICE LATELY. LUNG SOUNDS ARE CLEAR AND EQUAL BILATERL, ON ROOM AIR WITH SPO2 >95%. THEY HAVE A IMPLANTED PACEMAKER IN L UPPER CHEST. A-FIB WITH VENTRICULAR PACED BEATS, WITH SBP 110 - 120'S MAP >65 AND HR: 60'S. THEY HAVE A VELASCO CATHETER (16F) PLACED AND DRAINING TO GRAVITY. REDNESS/BRUISING NOTED ON L GORDON, PT STATES THEY BUMPED THEIR LEG ON SHOMETHING BUT THEY DONT REMEMBER WHEN IT OCCURED, PICTURE IS IN THEIR CHART. THEIR L FOOT FEELS COLDER THAN THE R FOOT. UNABLE TO FIND L PEDAL PULSE WITH DOPLER, BUT CAP REFILL IS <3 SEC IN LEFT TOES. PERIPHERAL IVS, 20G IN L & R AC. ON INSULIN GTT PER EMR ORDERS AND BLOOD GLUOCE HAS BEEN >400. LINES, CORDS, AND TUBES PLACED OUT OF REACH. CALL LIGHT PLACED WITHIN REACH AND THEY WERE TOLD TO PRESS THE CALL LIGTH WHEN THEY NEED ASSISTANCE.
[2024-06-27] MEDS ORDERED: Insulin Glargine-Yfgn 100 Unit/mL 3 ML SYR SC ONE (13:00)
[2024-06-27 14:09] LABS: Bun/Creatinine Ratio 11.3 (12.0-20.0); Calcium, Blood 8.8 mg/dL (8.5-10.1); Creatinine, Blood 0.88 mg/dL (0.60-1.20)
[2024-06-27] MEDS ORDERED: DILTIAZEM 24HR240 M3 PO (14:40)
[2024-06-27] MEDS ORDERED: JARDIANCE10 MG PO (14:42)
[2024-06-27] MEDS ORDERED: [UNRECOGNIZED DRUG - OTHER] IM (14:44)
[2024-06-27] MEDS ORDERED: PREVNAR IM (14:44)
[2024-06-27] MEDS ORDERED: Potassium Chloride 20 MEQ TabCR PO ONE (14:50)
[2024-06-27] MEDS ORDERED: Insulin Regular 100 UNIT/ML 10ML Vial SC SCH (16:30)
--- NOTE | 2024-06-27 18:18 | NUR ---
SHIFT SUMMARY: PT IS DOING WELL, THEY SPENT MOST OF THE DAY RESTING IN BED BUT WERE ABLE TO GET UP TO A CHAIR AND EAT DINNER THIS EVENING. THEY ARE ALERT AND ORIENTED AND ABLE TO FOLLOW COMMANDS. PT STATES NO CHEST PAIN, PAIN, OR SOB AT THIS TIME. ON ROOM AIR WITH SPO2 >95%. THEY HAVE BEEN IN A-FIB WITH VENTICULAR PACING WHEN NEEDED, IMPLANTED PACEMAKER IN L UPPER CHEST. SBP: 100 -120'S MAP>65 HR:60-70'S. THEIR BLOOD GLUCOSE HAS BEEN DECREASING THROUGHOUT THE DAY AND THE INSULIN DRIP WAS PUT ON STANDBY. PT WAS ABLE TO EAT LUNCH AND DINNER. VELASCO CATHETER WAS REMOVED AND URINAL WAS PLACED AT BEDSIDE FOR PT TO USE. PERIPHERAL IV IN LAC. PT IS ABLE TO STAND AND MOVE WITH 1 PERSON ASSIST. LINES AND CORDS WERE PLACED OUT OF THE WAY AND CALL LIGHT WAS PLACED WITHIN REACH.
[2024-06-28] VITALS (15 sets, daily range): BP systolic 90–169; BP diastolic 50–128
[2024-06-28 04:13] LABS: BASOPHILS ABSOLUTE AUTO 0.06 K/mm3 (0.00-0.23); BASOPHILS PERCENT AUTO 1 % (0-2); EOSINOPHILS ABSOLUTE AUTO 0.18 K/mm3 (0.00-0.68); EOSINOPHILS PERCENT AUTO 2 % (0-6); Hematocrit 40.1 % (37.0-53.0); Hemoglobin 14.1 g/dL (13.5-17.5); IMMATURE GRAN ABSOLUTE AUTO 0.05 K/mm3 (0.00-0.10); IMMATURE GRAN PERCENT AUTO 1 % (0-1); LYMPHOCYTES ABSOLUTE AUTO 1.44 K/mm3 (0.84-5.20); LYMPHOCYTES PERCENT AUTO 18 % (21-46); MONOCYTES ABSOLUTE AUTO 0.59 K/mm3 (0.16-1.47); MONOCYTES PERCENT AUTO 7 % (4-13); Mean Corpuscular HGB 31.1 pg (26.0-34.0); Mean Corpuscular HGB Conc 35.2 g/dL (31.5-36.5); Mean Corpuscular Volume 89 fL (80-100); Mean Platelet Volume 10.6 fL (9.1-12.4); NEUTROPHILS ABSOLUTE AUTO 5.61 K/mm3 (1.96-9.15); NEUTROPHILS PERCENT AUTO 71 % (41-73); Platelet Count 197 K/mm3 (150-400); RDW Coefficient Variation 12.8 % (11.7-14.2); RDW Standard Deviation 41.8 fL (35.1-46.3); Red Blood Cell Count 4.53 M/mm3 (4.30-5.90); White Blood Cell Count 7.93 K/mm3 (4.00-11.30)
[2024-06-28 04:26] LABS: Albumin, Blood 2.8 g/dL (3.4-5.0); Albumin/Globulin Ratio 0.8 (0.8-1.8); Bilirubin, Total 0.8 mg/dL (0.1-1.0); Bun/Creatinine Ratio 15.1 (12.0-20.0); Calcium, Blood 8.9 mg/dL (8.5-10.1); Creatinine, Blood 0.93 mg/dL (0.60-1.20); Globulin, Blood 3.7 g/dL (2.2-4.0); Potassium, Blood 3.6 mmol/L (3.5-5.5); Total Protein, Blood 6.5 g/dL (6.4-8.2)
--- NOTE | 2024-06-28 06:26 | NUR ---
Shift Summary Uneventful night , pt VSS , no compliants vocalized . Pt hopefuly to meet discharge criteria soon.
--- NOTE | 2024-06-28 08:08 | NUR ---
ASSUMPTION OF CARE: ASSUMED CARE AT START OF SHIFT (0700). PT IS DOING WELL AND RESTING IN BED, ALERT AND ORIENTED AND ABLE TO FOLLOW COMMANDS. PT STATES NO CHEST PAIN, SOB, OR PAIN AT THIS TIME. LUNG ARE CLEAR AND EQUAL BILATERAL, ON ROOM AIR WITH SPO2 >96%. A-FIB WITH VENTRICULAR PACED RYTHM, SBP: 140'S MAP>65 HR: 60'S. REDNESS/BRUISING ON L GORDON. PERIPHERAL IV IN THE RAC. ABLE TO USE BEDSIDE URINAL. ABLE TO FEED SELF AND TOLERATE MEALS WELL. 1-PERSON STANDBY ASSIST. LINES AND CORDS PLACED OUT OF REACH. CALL LIGHT PLACED WITHIN REACH AND THEY WERE TOLD TO PRESS THE BUTTON WHEN THEY NEED ASSISTANCE.
[2024-06-28] MEDS ORDERED: Potassium Chloride 20 MEQ TabCR PO ONE (09:00)
[2024-06-28] MEDS ORDERED: Insulin Glargine-Yfgn 100 Unit/mL 3 ML SYR SC SCH (09:00)
[2024-06-28] MEDS ORDERED: Empagliflozin 10 MG TAB PO SCH (10:00)
[2024-06-28] MEDS ORDERED: Amiodarone HCl 200 MG Tab PO SCH (10:00)
[2024-06-28] MEDS ORDERED: Metoprolol Succinate 50 MG TABCR PO SCH (10:00)
[2024-06-28] MEDS ORDERED: Insulin Regular 100 UNIT/ML 10ML Vial SC SCH (12:10)
--- NOTE | 2024-06-28 15:24 | NUR ---
TRANSFER NOTE: PT TRANSFERRED TO [facility] FLOOR ROOM 310. ALL PT BELONGS AND MEDICATIONS WERE SENT WITH PT. PT TANSFERRED VIA WHEELCHAIR. REPORT GIVEN TO GERARD.
--- NOTE | 2024-06-28 15:46 | NUR ---
TRANSFER NOTE PT TRANSFERRED FROM U 5, REPORT RECEIVED FROM GERARD CROWLEY. PT ORIENTED TO THE ROOM. BA ON. CALL LIGHT WITHIN REACH.
[2024-06-28] MEDS ORDERED: GlipiZIDE 5 MG Tab PO SCH (16:30)
[2024-06-29 04:00] VITALS: BP 161/93
[2024-06-29 04:37] LABS: BASOPHILS ABSOLUTE AUTO 0.08 K/mm3 (0.00-0.23); BASOPHILS PERCENT AUTO 1 % (0-2); EOSINOPHILS ABSOLUTE AUTO 0.17 K/mm3 (0.00-0.68); EOSINOPHILS PERCENT AUTO 2 % (0-6); Hematocrit 38.1 % (37.0-53.0); Hemoglobin 13.5 g/dL (13.5-17.5); IMMATURE GRAN ABSOLUTE AUTO 0.07 K/mm3 (0.00-0.10); IMMATURE GRAN PERCENT AUTO 1 % (0-1); LYMPHOCYTES ABSOLUTE AUTO 2.34 K/mm3 (0.84-5.20); LYMPHOCYTES PERCENT AUTO 29 % (21-46); MONOCYTES ABSOLUTE AUTO 0.71 K/mm3 (0.16-1.47); MONOCYTES PERCENT AUTO 9 % (4-13); Mean Corpuscular HGB 31.3 pg (26.0-34.0); Mean Corpuscular HGB Conc 35.4 g/dL (31.5-36.5); Mean Corpuscular Volume 88 fL (80-100); Mean Platelet Volume 10.8 fL (9.1-12.4); NEUTROPHILS ABSOLUTE AUTO 4.84 K/mm3 (1.96-9.15); NEUTROPHILS PERCENT AUTO 59 % (41-73); Platelet Count 216 K/mm3 (150-400); RDW Standard Deviation 42.4 fL (35.1-46.3); Red Blood Cell Count 4.31 M/mm3 (4.30-5.90); White Blood Cell Count 8.21 K/mm3 (4.00-11.30)
--- NOTE | 2024-06-29 04:46 | NUR ---
SHIFT SUMMARY PT A&Ox3, PLEASANT AND FORGETFUL. NO C/O PAIN. BG WAS 215 AT HS SO NO INSULIN NEEDED PER SLIDING SCALE. PT IMPULSIVE SO BED ALARM ON T/O NIGHT. PT STATED SEVERAL TIMES DURING THE NIGHT THAT HE WANTS TO GO HOME. VSS. BED IN LOWEST POSITION AND CALL LIGHT IN REACH.
[2024-06-29 05:07] LABS: Bun/Creatinine Ratio 19.3 (12.0-20.0); Calcium, Blood 8.8 mg/dL (8.5-10.1); Creatinine, Blood 1.09 mg/dL (0.60-1.20); Potassium, Blood 3.8 mmol/L (3.5-5.5)
[2024-06-29] MEDS ORDERED: Apixaban 5 MG Tab PO SCH (08:00)
[2024-06-29 08:01] VITALS: BP 155/75
[2024-06-29] MEDS ORDERED: Tamsulosin HCl 0.4 MG Cap PO SCH (09:00)
[2024-06-29] MEDS ORDERED: Torsemide 20 MG TAB PO SCH (09:00)
[2024-06-29] MEDS ORDERED: Aspirin 81 MG Chew PO SCH (09:00)
[2024-06-29] MEDS ORDERED: Atorvastatin 40 MG Tab PO SCH (09:00)
--- NOTE | 2024-06-29 10:45 | NUR ---
Pt. is resting but startles awake when I enterthe room. Pt. is pleasant. Pt. verbalizes his expectation to return home to care for his . Listen with emapthy and a calming presence. Pt. verbalizes concern with regard to how he is going to be able to pay for his medical care/hospital stay. Seek to normalize the Pt. experience and with theraputic listening the Pt. displays evidence of trust. Prayed with the Pt. Pt. verbalized gratitude for the spiritual care visit.
[2024-06-29] MEDS ORDERED: METO50ER PO (11:26)
[2024-06-29] MEDS ORDERED: GLIPIZIDE2.5 MG PO (11:28)
--- NOTE | 2024-06-29 12:30 | NUR ---
PT DISCHARGED TO HOME WITH HOME HEALTH VIA [facility]. DISCHARGE INSTRUCTIONS PROVIDED AND EDUCATED ON AT TIME OF DISCHARGE. ALL VALUABLES RETURNED ANS SENT HOME WITH THE PT.
== END 2024-06-29 12:49 | disposition home health service (06) | DRG 638 ==
LOC: ER 04:43 → MEDS 04:44 → ICUE 04:44 → MEDS 06-28 15:41
PROVIDERS: Emergency Medicine; Internal Medicine; ADMIT Internal Medicine
PROC: 0T9B70Z Drainage of Bladder with Drainage Device, Via Natural or Artificial Opening (ICD-10-PCS; principal; 2024-06-27)
DX: E11.00 Type 2 diabetes mellitus with hyperosmolarity without nonketotic hyperglycemic-hyperosmolar coma (NKHHC) (principal); I13.0 Hypertensive heart and chronic kidney disease with heart failure and stage 1 through stage 4 chronic kidney disease, or unspecified chronic kidney disease; I50.22 Chronic systolic (congestive) heart failure; I48.20 Chronic atrial fibrillation, unspecified; E11.65 Type 2 diabetes mellitus with hyperglycemia; R35.0 Frequency of micturition; R33.8 Other retention of urine; N18.30 Chronic kidney disease, stage 3 unspecified; J44.9 Chronic obstructive pulmonary disease, unspecified; E03.9 Hypothyroidism, unspecified; I35.0 Nonrheumatic aortic (valve) stenosis; R79.89 Other specified abnormal findings of blood chemistry; E11.51 Type 2 diabetes mellitus with diabetic peripheral angiopathy without gangrene; R53.1 Weakness; I77.1 Stricture of artery; Z91.048 Other nonmedicinal substance allergy status; Z79.01 Long term (current) use of anticoagulants; Z79.899 Other long term (current) drug therapy; Z79.4 Long term (current) use of insulin; Z79.2 Long term (current) use of antibiotics; Z86.73 Personal history of transient ischemic attack (TIA), and cerebral infarction without residual deficits; Z87.19 Personal history of other diseases of the digestive system; Z87.01 Personal history of pneumonia (recurrent); Z90.49 Acquired absence of other specified parts of digestive tract; Z95.0 Presence of cardiac pacemaker; Z87.891 Personal history of nicotine dependence; Z79.84 Long term (current) use of oral hypoglycemic drugs; Z86.79 Personal history of other diseases of the circulatory system
CPT/HCPCS: 36415; 51702; 51798; 80048; 80053; 81003; 82947; 83036; 83605; 83735; 83880; 84484; 85025; 93005; 93010; 93926; 96360; 96361; 96372; 97116; 97162; 97530; 99284-25; A9270; G0378; J1650; J1815; J7030

== ENCOUNTER 2024-07-31 03:23 | Emergency (ER) | payer MEDICARE, MEDICAID ==
[~2024-07-31] VITALS: Ht 167.6 cm; Wt 72.6 kg
[~2024-07-31 03:23] MED LIST changes: +DILTIAZEM 24HR240 M3 PO; +GLIPIZIDE2.5 MG PO; +JARDIANCE10 MG PO; +METO50ER PO; +PREVNAR IM; +[UNRECOGNIZED DRUG - OTHER] IM
[2024-07-31] MEDS ORDERED: NS 1,000 ML IV SCH (08:05)
[2024-07-31] MEDS ORDERED: Ketorolac Tromethamine 30mg Vial IV ONE (08:05)
[2024-07-31] MEDS ORDERED: Amiodarone HCl 200 MG Tab PO ONE (09:10)
[2024-07-31] MEDS ORDERED: Metoprolol Succinate 50 MG TABCR PO ONE (09:10)
[2024-07-31 09:18] LABS: BASOPHILS ABSOLUTE AUTO 0.07 K/mm3 (0.00-0.23); BASOPHILS PERCENT AUTO 1 % (0-2); EOSINOPHILS ABSOLUTE AUTO 0.16 K/mm3 (0.00-0.68); EOSINOPHILS PERCENT AUTO 2 % (0-6); Hematocrit 39.6 % (37.0-53.0); Hemoglobin 13.3 g/dL (13.5-17.5); IMMATURE GRAN ABSOLUTE AUTO 0.03 K/mm3 (0.00-0.10); IMMATURE GRAN PERCENT AUTO 0 % (0-1); LYMPHOCYTES ABSOLUTE AUTO 1.45 K/mm3 (0.84-5.20); LYMPHOCYTES PERCENT AUTO 14 % (21-46); MONOCYTES PERCENT AUTO 10 % (4-13); Mean Corpuscular HGB 30.4 pg (26.0-34.0); Mean Corpuscular HGB Conc 33.6 g/dL (31.5-36.5); Mean Corpuscular Volume 90 fL (80-100); Mean Platelet Volume 9.4 fL (9.1-12.4); NEUTROPHILS PERCENT AUTO 73 % (41-73); Platelet Count 294 K/mm3 (150-400); RDW Coefficient Variation 13.5 % (11.7-14.2); RDW Standard Deviation 45.1 fL (35.1-46.3); Red Blood Cell Count 4.38 M/mm3 (4.30-5.90); White Blood Cell Count 10.21 K/mm3 (4.00-11.30)
[2024-07-31 09:35] LABS: Albumin/Globulin Ratio 0.6 (0.8-1.8); Bilirubin, Total 0.9 mg/dL (0.1-1.0); Bun/Creatinine Ratio 19.6 (12.0-20.0); C-REACTIVE PROTEIN, EXT RANGE 8.58 mg/dL (0.000-0.300); Calcium, Blood 8.8 mg/dL (8.5-10.1); Creatinine, Blood 0.87 mg/dL (0.60-1.20); Globulin, Blood 5.1 g/dL (2.2-4.0); Magnesium, Blood 2.3 mg/dL (1.6-2.4); Potassium, Blood 3.8 mmol/L (3.5-5.5); Total Protein, Blood 8.1 g/dL (6.4-8.2)
[2024-07-31 09:45] VITALS: BP 186/99
[2024-07-31] MEDS ORDERED: Cefdinir 300 MG Cap PO ONE (09:45)
[2024-07-31] MEDS ORDERED: CEFD300 PO (09:45)
== END 2024-07-31 10:00 | disposition home or self-care (01) ==
LOC: ER 03:23
PROVIDERS: Student in an Organized Health Care Education/Training Program
DX: L03.116 Cellulitis of left lower limb (principal); I13.0 Hypertensive heart and chronic kidney disease with heart failure and stage 1 through stage 4 chronic kidney disease, or unspecified chronic kidney disease; I50.20 Unspecified systolic (congestive) heart failure; N18.30 Chronic kidney disease, stage 3 unspecified; I48.91 Unspecified atrial fibrillation; J44.9 Chronic obstructive pulmonary disease, unspecified; I25.2 Old myocardial infarction; Z91.048 Other nonmedicinal substance allergy status; Z79.01 Long term (current) use of anticoagulants; Z79.4 Long term (current) use of insulin; Z79.899 Other long term (current) drug therapy; Z87.891 Personal history of nicotine dependence
CPT/HCPCS: 36415; 73630; 80053; 83605; 83735; 85025; 85651; 86140; 87040; 93005; 93010; 96361; 96374; 99284-25; A9270; J1885; J7030

== ENCOUNTER 2024-10-30 09:00 | Emergency (ER) | payer OTHER, MEDICARE ==
[~2024-10-30] VITALS: Ht 170.2 cm; Wt 68.0 kg
[~2024-10-30 09:00] MED LIST changes: +CEFD300 PO
[2024-10-30 12:15] LABS: BODY FLUID RBC 0.038 M/mm3 (0-0)
[2024-10-30 12:16] LABS: RBC Count, Synovial Fluid 38000 /mm3 (0-0); WBC Count, Synovial Fluid 6155 /mm3 (0-180)
[2024-10-30] MEDS ORDERED: Diltiazem HCl 5 MG / ML 5ML Vial IV ONE ×2 (12:50→15:15)
[2024-10-30 12:59] LABS: Appearance, Synovial Fluid Turbid (Clear); Color, Synovial Fluid Red (None-P Yel); Lymphs, Synovial Fluid 1 % (0-15); Monocytes/Macrophages, Synovia 5 % (0-65); Neutrophils, Synovial Fluid 94 % (0-24)
[2024-10-30] MEDS ORDERED: Ketorolac Tromethamine 15mg Vial IV ONE (14:35)
[2024-10-30 14:58] LABS: BASOPHILS ABSOLUTE AUTO 0.05 K/mm3 (0.00-0.23); BASOPHILS PERCENT AUTO 1 % (0-2); EOSINOPHILS ABSOLUTE AUTO 0.03 K/mm3 (0.00-0.68); EOSINOPHILS PERCENT AUTO 0 % (0-6); Hematocrit 35.3 % (37.0-53.0); Hemoglobin 12.2 g/dL (13.5-17.5); IMMATURE GRAN ABSOLUTE AUTO 0.04 K/mm3 (0.00-0.10); IMMATURE GRAN PERCENT AUTO 0 % (0-1); LYMPHOCYTES ABSOLUTE AUTO 0.91 K/mm3 (0.84-5.20); LYMPHOCYTES PERCENT AUTO 10 % (21-46); MONOCYTES ABSOLUTE AUTO 0.82 K/mm3 (0.16-1.47); MONOCYTES PERCENT AUTO 9 % (4-13); Mean Corpuscular HGB Conc 34.6 g/dL (31.5-36.5); Mean Corpuscular Volume 83 fL (80-100); NEUTROPHILS ABSOLUTE AUTO 7.71 K/mm3 (1.96-9.15); NEUTROPHILS PERCENT AUTO 81 % (41-73); NRBC ABSOLUTE 0.00 K/mm3 (0.00-0.02); NRBC Auto 0.0 /100 WBC (0.0-0.2); Platelet Count 243 K/mm3 (150-400); RDW Coefficient Variation 16.5 % (11.7-14.2); RDW Standard Deviation 50.2 fL (35.1-46.3)
[2024-10-30 16:15] VITALS: BP 147/107
[2024-10-30] MEDS ORDERED: HYDROCODONE-AC1 EA10 PO (16:26)
== END 2024-10-30 16:49 | disposition home or self-care (01) ==
LOC: ER 09:00
PROVIDERS: Emergency Medicine
DX: M25.461 Effusion, right knee (principal); Z79.899 Other long term (current) drug therapy; Z79.4 Long term (current) use of insulin; I13.0 Hypertensive heart and chronic kidney disease with heart failure and stage 1 through stage 4 chronic kidney disease, or unspecified chronic kidney disease; I48.91 Unspecified atrial fibrillation; I50.20 Unspecified systolic (congestive) heart failure; N18.30 Chronic kidney disease, stage 3 unspecified; Z79.01 Long term (current) use of anticoagulants; Z87.891 Personal history of nicotine dependence
CPT/HCPCS: 20610; 73562-RT; 85025; 85651; 86140; 87070; 87075; 87205; 89051; 89060; 93005; 93010; 96374-59; 96375-59; 96376-59; 99283-25; J1885

== ENCOUNTER 2025-01-28 16:18 | Inpatient (IN) | payer MEDICARE, OTHER ==
[~2025-01-28] VITALS: Ht 170.2 cm; Wt 58.7 kg
[2025-01-28] VITALS (7 sets, daily range): BP systolic 100–114; BP diastolic 73–94
[~2025-01-28 16:18] MED LIST changes: +HYDROCODONE-AC1 EA10 PO
[2025-01-28] MEDS ORDERED: METF500 PO (16:52)
[2025-01-28 16:55] LABS: BASOPHILS ABSOLUTE AUTO 0.13 K/mm3 (0.00-0.23); BASOPHILS PERCENT AUTO 2 % (0-2); EOSINOPHILS ABSOLUTE AUTO 0.12 K/mm3 (0.00-0.68); EOSINOPHILS PERCENT AUTO 2 % (0-6); Hematocrit 52.8 % (37.0-53.0); Hemoglobin 17.0 g/dL (13.5-17.5); IMMATURE GRAN ABSOLUTE AUTO 0.04 K/mm3 (0.00-0.10); IMMATURE GRAN PERCENT AUTO 1 % (0-1); LYMPHOCYTES ABSOLUTE AUTO 1.75 K/mm3 (0.84-5.20); LYMPHOCYTES PERCENT AUTO 25 % (21-46); MONOCYTES ABSOLUTE AUTO 0.48 K/mm3 (0.16-1.47); MONOCYTES PERCENT AUTO 7 % (4-13); Mean Corpuscular HGB Conc 32.2 g/dL (31.5-36.5); Mean Corpuscular Volume 88 fL (80-100); NEUTROPHILS ABSOLUTE AUTO 4.45 K/mm3 (1.96-9.15); NEUTROPHILS PERCENT AUTO 64 % (41-73); NRBC ABSOLUTE 0.00 K/mm3 (0.00-0.02); NRBC Auto 0.0 /100 WBC (0.0-0.2); Platelet Count 332 K/mm3 (150-400); RDW Coefficient Variation 15.1 % (11.7-14.2); RDW Standard Deviation 48.8 fL (35.1-46.3)
[2025-01-28] MEDS ORDERED: Diltiazem HCl 5 MG / ML 5ML Vial IV ONE (17:00)
[2025-01-28 17:11] LABS: Alanine Aminotransfer (ALT/SGP 16.0 U/L (12-78); Albumin, Blood 3.6 g/dL (3.4-5.0); Albumin/Globulin Ratio 0.8 (0.8-1.8); Anion Gap 13.0 mmol/L (3-11); Aspartate Aminotrans (AST/SGOT 23.0 U/L (12-37); Bilirubin, Total 1.9 mg/dL (0.1-1.0); Blood Urea Nitrogen 29.0 mg/dL (8-24); CO2, Blood 28.0 mmol/L (21-32); Calcium, Blood 9.9 mg/dL (8.5-10.1); Chloride, Blood 97.0 mmol/L (98-108); Creatinine, Blood 1.56 mg/dL (0.60-1.20); Globulin, Blood 4.5 g/dL (2.2-4.0); Glucose, Blood 202.0 mg/dL (70-99); Potassium, Blood 3.5 mmol/L (3.5-5.5); Sodium, Blood 134.0 mmol/L (136-145); Total Protein, Blood 8.1 g/dL (6.4-8.2)
[2025-01-28] MEDS ORDERED: FLU VACC TS2025(65UP)/MF59C/PF 45 MCG/0.5 ML SYRINGE IM SCH (19:20)
[2025-01-28] MEDS ORDERED: Metoprolol Tartrate 1 MG/ML 5 ML VIAL IV PRN (19:20)
[2025-01-28] MEDS ORDERED: Ondansetron HCl 2 MG / ML 2ML Vial IV PRN (19:25)
--- NOTE | 2025-01-28 20:05 | NUR ---
PATIENT ADMITTED FROM ED VIA BED. ASSISTED TO TRANSFER FROM STRETCHER TO BED. PATIENT WITH UNSTEADY GAIT UPON TRANSFER. ALERT AND ORIENTED X3. DISORIENTED TO TIME ONLY. REPORTS NO PAIN OR DISCOMFORT. MOVES EXTREMITIES X4 WTIH WEAKNESS. NO NUMBNESS AND TINGLING. CONTINUES IN AFIBB. PULSES PRESENT THROUGHOUT. ON ROOM AIR. CONSISTENT CARB DIET. SWALLOWS WITHOUT DIFFICULTY. NO WOUND NOTED ON ADMIT. RIGHT WRIST IV INTACT WITH BLOOD RETURN NOTED. NOTIFED PATIENT SPOUSE OF PATIENT ADIMT. SAFETY INTACT.
[2025-01-28] MEDS ORDERED: Insulin Human Lispro 100 Units/ML 3ML Syringe SC SCH (21:00)
[2025-01-29] VITALS (8 sets, daily range): BP systolic 87–150; BP diastolic 65–91
[2025-01-29] MEDS ORDERED: LORazepam 2 MG/ML 1ML Injection IV ONE (03:15)
[2025-01-29 04:41] LABS: Alanine Aminotransfer (ALT/SGP 13.0 U/L (12-78); Albumin, Blood 3.1 g/dL (3.4-5.0); Albumin/Globulin Ratio 0.8 (0.8-1.8); Anion Gap 15.0 mmol/L (3-11); Aspartate Aminotrans (AST/SGOT 13.0 U/L (12-37); Bilirubin, Total 1.4 mg/dL (0.1-1.0); Blood Urea Nitrogen 33.0 mg/dL (8-24); CO2, Blood 22.0 mmol/L (21-32); Calcium, Blood 9.1 mg/dL (8.5-10.1); Chloride, Blood 99.0 mmol/L (98-108); Creatinine, Blood 1.59 mg/dL (0.60-1.20); Globulin, Blood 3.7 g/dL (2.2-4.0); Glucose, Blood 150.0 mg/dL (70-99); Magnesium, Blood 2.0 mg/dL (1.6-2.4); Potassium, Blood 3.1 mmol/L (3.5-5.5); Sodium, Blood 133.0 mmol/L (136-145); Total Protein, Blood 6.8 g/dL (6.4-8.2)
--- NOTE | 2025-01-29 05:54 | NUR ---
OCEAN EXPORT ACCOUNT MANAGER SUMMARY PATIENT INITIALLY ALERT AND ORIENT X3. ONLY DISORIENTED TO SITUATION. THE NIGHT PROGRESSED, PATIENT BECAME INCREASINGLY AGITATED, RESTLESS, AND CONFUSED PROGRESSING TO WHERE PATIENT WAS NON REDIRECTABLE. ALSO PULLING OFF HOSPITAL EQUIPMENT. NOTIFIED DR. LEE AND NEW ORDERS RECIEVED FOR IM ZYPREXA (SEE MAR). FOLLOWING THIS ADMINISTRATION. PATIENT BEGAN GETTING MORE CONFUSED/AGITATED NOT ALLOWING FOR STAFF TO ASSIST HIM. MD NOTIFIED AND MORE ORDERS RECIEVED. PATIENT CONTINUES CONFUSED AND SIGNIFICANTLY RESTLESS AT THIS TIME. PT. SPOUSE STATES, "LATELY, HE HAS BEEN GETTING MORE AND MORE FORGETFUL AND CONFUSED" WHEN SPEAKING TO PATIENT SPOUSE ON THE PHONE. PATIENT SPOUSE ALSO STATES HE DOES NOT HAVE A LIVING WILL AT THIS TIME AND VARIFIED PATIENT MEDICATIONS BUT STATES SHE DOES NOT KNOW WHAT HE HAS TAKEN AND WHEN. CARDIO: PATIENT REMAINS AFIBB WITH A FLUCTUATING HR THAT REFLECTS WHEN PATIENT HAS BEEN AGITATED. PRN METOPROLOL ADMINISTERED PER ORDER WITH A GOAL HR <110 PER APR. PULM: ROOM AIR, LUNGS CLEAR. : CONT. AND USES URINAL. URINATED 250 X1. BLADDER SCANNED PATIENT AND NOTE PATIENT WITH ONLY 120 CC IN BLADDER. REPORTS NO PAIN. PENDING ECHO AND RENAL US. AWAIING URINE SAMPLE. EDUCATED ON CURRENT PLAN OF CARE. BED ALARM ON. SAFETY INTACT
[2025-01-29] MEDS ORDERED: NS 250 ML IV PRN (08:15)
[2025-01-29 09:37] LABS: pH Blood Venous 7.46 (7.34-7.37)
[2025-01-29 10:07] LABS: Prothrombin Time Results 16.3 Sec (9.7-11.5)
[2025-01-29] MEDS ORDERED: Heparin Sodium,Porcine/0.5 NS 500 ML IV SCH (10:20)
--- NOTE | 2025-01-29 11:17 | NUR ---
ASSUMED CARE THIS RN ASSUMED CARE OF PATIENT AT 0700 WITH PRECEPTOR NAYELI GEE. PATIENT IS STIRRING AROUND IN BED ATTEMPTING TO SIT UPRIGHT AND GET OUT OF BED. PATIENT IS NOT EASILY REDIRECTABLE AND UNABLE TO ANSWER QUESTIONS. BOOSTED AND REPOSITIONED, PATIENT RETURNED TO RESTING WITH EYES CLOSED. HE IS ALERT AND ORIENTED TO SELF, HE IS UNSURE WHERE HE IS. PT IS ON 2LPM O2 VIA NC WITH SPO2 >92%. HIS SYSTOLIC BP IS >120, MONITOR SHOWS HR IS 110-130S IRREGULAR AFIB W/ RVR. PATIENT IS ABLE TO USE BSC WITH 1 NURSE ASSIST. BED IN LOWEST POSITION. CALL LIGHT IN REACH.
[2025-01-29] MEDS ORDERED: NS 500 ML IV SCH (14:20)
[2025-01-29] MEDS ORDERED: Metoprolol Tartrate 1 MG/ML 5 ML VIAL IV SCH (18:00)
[2025-01-29 18:21] LABS: Bilirubin, Urine Neg (Neg); Color, Urine Yellow (P-Yellow); Glucose Qualitative, Urine Neg (Neg); Ketones, Urine Neg (Neg); Leukocyte Esterase, Urine 1+ (Neg); Protein, Urine 2+ (Neg); Specific Gravity, Urine 1.025 (1.003-1.022); Urobilinogen, Urine NORM (Normal)
[2025-01-29 18:53] LABS: Red Blood Cells, Urine 0-2 /hpf (0-2)
--- NOTE | 2025-01-29 18:53 | NUR ---
SHIFT SUMMARY PATIENT RESTING COMFORTABLY WITH EYES CLOSED. NO ACUTE EVENTS THIS SHIFT. PATIENT HAS BEEN CONFUSED, BUT ORIENTED TO SELF, SITUATION, AND PLACE. HE ATTEMPTS TO GET OUT OF BED BUT IS REDIRECTABLE. HIS SPO2 >96% ON 3LPM O2. SYSTOLIC BP IS LABILE W/ READINGS BETWEEN 90-140S SYSTOLIC. MAP IS STABLE. HR IS 90-120S AND MONITOR SHOWS AFIB W/ PVCS. PATIENT DENIES CHEST PAIN. HE IS NPO AFTER FAILING A BESIDE SWALLOW EVAL BY THIS RN. PATIENT HAS VELASCO CATH PATENT AND DRAINING CLEAR YELLOW URINE TO GRAVITY. BED IN LOWEST POSITION. CALL LIGHT IN REACH.
[2025-01-29] MEDS ORDERED: Dose Adjust by Pharmacy XX STA (20:52)
--- NOTE | 2025-01-29 21:21 | NUR ---
ASSUMPTION OF CARE: THIS RN TO ASSUME CARE OF PT AT 1910. PT APPEARS TO BE SLEEPING WITH EQUAL NONLABORED RESPIRATIONS. ON 3L NC. HEPARIN GTT INFUSING PER EMAR. BED IN LOW POSITION, CALL LIGHT IN REACH.
[2025-01-30] VITALS (8 sets, daily range): BP systolic 124–155; BP diastolic 74–109
[2025-01-30 04:34] LABS: BASOPHILS ABSOLUTE AUTO 0.12 K/mm3 (0.00-0.23); BASOPHILS PERCENT AUTO 2 % (0-2); EOSINOPHILS ABSOLUTE AUTO 0.11 K/mm3 (0.00-0.68); EOSINOPHILS PERCENT AUTO 1 % (0-6); Hematocrit 46.3 % (37.0-53.0); Hemoglobin 15.7 g/dL (13.5-17.5); IMMATURE GRAN ABSOLUTE AUTO 0.03 K/mm3 (0.00-0.10); IMMATURE GRAN PERCENT AUTO 0 % (0-1); LYMPHOCYTES ABSOLUTE AUTO 1.27 K/mm3 (0.84-5.20); LYMPHOCYTES PERCENT AUTO 16 % (21-46); MONOCYTES ABSOLUTE AUTO 0.59 K/mm3 (0.16-1.47); MONOCYTES PERCENT AUTO 7 % (4-13); Mean Corpuscular HGB Conc 33.9 g/dL (31.5-36.5); Mean Corpuscular Volume 86 fL (80-100); NEUTROPHILS ABSOLUTE AUTO 6.00 K/mm3 (1.96-9.15); NEUTROPHILS PERCENT AUTO 74 % (41-73); NRBC ABSOLUTE 0.00 K/mm3 (0.00-0.02); NRBC Auto 0.0 /100 WBC (0.0-0.2); Platelet Count 289 K/mm3 (150-400); RDW Coefficient Variation 14.8 % (11.7-14.2); RDW Standard Deviation 46.5 fL (35.1-46.3)
[2025-01-30 04:56] LABS: Alanine Aminotransfer (ALT/SGP 12.0 U/L (12-78); Albumin, Blood 2.6 g/dL (3.4-5.0); Albumin/Globulin Ratio 0.8 (0.8-1.8); Anion Gap 8.0 mmol/L (3-11); Aspartate Aminotrans (AST/SGOT 12.0 U/L (12-37); Bilirubin, Total 1.2 mg/dL (0.1-1.0); Blood Urea Nitrogen 28.0 mg/dL (8-24); CO2, Blood 28.0 mmol/L (21-32); Calcium, Blood 8.9 mg/dL (8.5-10.1); Chloride, Blood 106.0 mmol/L (98-108); Creatinine, Blood 1.29 mg/dL (0.60-1.20); Globulin, Blood 3.4 g/dL (2.2-4.0); Glucose, Blood 86.0 mg/dL (70-99); Potassium, Blood 3.3 mmol/L (3.5-5.5); Sodium, Blood 139.0 mmol/L (136-145); Total Protein, Blood 6.0 g/dL (6.4-8.2)
[2025-01-30] MEDS ORDERED: Dose Adjust by Pharmacy XX STA ×3 (05:01→17:53)
--- NOTE | 2025-01-30 06:05 | NUR ---
SHIFT SUMMARY: PT ALERT TO SELF AND PLACE WHEN AWAKE. PT AWAKES OFTEN THROUGHOUT THE NIGHT SAYING THAT HE NEEDS TO GO PT. IS REMINDED THAT HE HAS A VELASCO, LAYS DOWN AND QUICKLY FALLS ASLEEP. HAS DENIED ANY COMPLIANTS THROUGHOUT THE NIGHT. BLOOD PRESSURE HYPERTENSIVE AND HAD AN 8 BEAT RUN OF VTACH AT 0407. MEDICATED WITH Q6 LOPRESSOR. URINE IN VEALSCO HAD BECOME MORE RED OVER THE MORNING. PTT WAS HIGH AT ONE POINT AND WAS PAUSED FOR AN HOUR AND THE RATE WAS DECREASED, BUT IS NOW AT A THERAPEUTIC LEVEL. PROVIDER NOTIFIED AND WOULD LIKE TO CONTINUE AT THIS TIME. NO OTHER SIGNIFICANT EVENTS HAPPENED DURING THIS SHIFT, WILL CONTINUE TO CARE FOR PT TILL END OF SHIFT.
[2025-01-30 06:29] LABS: Magnesium, Blood 1.9 mg/dL (1.6-2.4); Phosphorus, Blood 3.0 mg/dL (2.5-4.9)
--- NOTE | 2025-01-30 08:22 | NUR ---
ASSUMED CARE NOTE: ASSUMED CARE OF PT AT 0700, PT IS DROWSY, ORIENTED TO SELF ONLY, ABLE TO FOLLOW COMMANDS. PT ON RA WITH SPO2 ABOVE 92% NO RESP DISTRESS NOTED. PT IN AFIB WITH HR BETWEEN 100-110, BP STABLE. PT NPO AT THIS TIME D/T DECREASED ALERTNESS AND HIGH RISK OF ASPIRATION. VELASCO PATENT DRAINING TO GRAVITY, RED TINGED URINE NOTED, MD AWARE. HEPARIN INFUSING PER APR. PT REPOSITIONS SELF IN BED. PLAN OF CARE ONGOING.
[2025-01-30 09:18] LABS: U Amphetamine Screen Not Detected; U Barbiturate Screen Not Detected; U Benzodiazapine Screen DETECTED; U Buprenorphine Screen Not Detected; U Cannabinoids Screen Not Detected; U Cocaine Screen Not Detected; U Methadone Screen Not Detected; U Methamphetamine Screen Not Detected; U Opiates Screen Not Detected; U Oxycodone Screen Not Detected; U Phencyclidine Screen Not Detected
--- NOTE | 2025-01-30 17:56 | NUR ---
SHIFT SUMMARY/TRANSFER NOTE: PT IS ALERT AND ORIETNED TO SELF/ABLE TO FOLLOW COMMANDS. PT DISORIENTED TO TIME/PLACE AND SITUATION. PT DENIES ANY PAIN AT THIS TIME. PT REMAINS ON RA WITH SPO2 ABOVE 92% NO RESP DISTRESS NOTED. PT IN AFIB WITH HR BETWEEN 90-120'S, MADE AWARE, ORDER TO INCREASE IN PO LOPRESSOR TO BID. PT DENIES ANY CP. BP STABLE, MAP'S ABOVE 65. SPEECH THERAPY CLEARED PT TO EASY TO CHEW HEART HEALTHY DIET, TOLERATING PO INTAKE W/O COMPLICATIONS. ACTIVE BT IN ALL QUADRANTS, NO BM THIS SHIFT. VELASCO PATENT, DRAINING TO GRAVITY, RED TINGED URINE NOTED. PT ABLE TO AMBULATE TO CHAIR WITH 1 PERSON ASSIST/FWW AND FREQUENT CUES. PT TRANSFERED TO PCU, REPORT GIVEN TO ABBI GEE.
--- NOTE | 2025-01-30 18:19 | NUR ---
ASSUMED CARE OF PATIENT AROUND 1740 A TRASFER FROM ICU. PT AOX2, CONFUSED, UNSURE OF WHERE HE IS, DATE, OR HOW HE GOT HERE. SBP IS SLIGHTLY ELEVATED. PROVIDER AWARE. HR AFIB 100'S-150'S. PROVIDER AWARE. MEDICATED BEFORE TRANSFER TO DC. O2 SATS >95% ON ROOM AIR. HEPARIN INFUSING IN RIGHT HAND. PHARMACY CALLED TO ADJUST DOSE. DOSE ADJUSTED USING TWO RN CHECK. 2P W FWW. VELASCO CATHETER DRAINING TO GRAVITY. PATIENT CAN BE IMPUSLIVE, BED ALARM ACTIVE. DENIES CHEST PAIN/PRESSURE/SOB AT THIS TIME. RESTING COMFORTABLY IN BED IN LOWEST POSITION. CALL LIGHT WITH IN REACH.
[2025-01-31] MEDS ORDERED: Dose Adjust by Pharmacy XX STA ×2 (01:39→01:44)
[2025-01-31 04:16] VITALS: BP 148/112
[2025-01-31 04:39] LABS: BASOPHILS ABSOLUTE AUTO 0.08 K/mm3 (0.00-0.23); BASOPHILS PERCENT AUTO 1 % (0-2); EOSINOPHILS ABSOLUTE AUTO 0.13 K/mm3 (0.00-0.68); EOSINOPHILS PERCENT AUTO 2 % (0-6); Hematocrit 46.1 % (37.0-53.0); Hemoglobin 15.3 g/dL (13.5-17.5); IMMATURE GRAN ABSOLUTE AUTO 0.04 K/mm3 (0.00-0.10); IMMATURE GRAN PERCENT AUTO 1 % (0-1); LYMPHOCYTES ABSOLUTE AUTO 1.37 K/mm3 (0.84-5.20); LYMPHOCYTES PERCENT AUTO 19 % (21-46); MONOCYTES ABSOLUTE AUTO 0.72 K/mm3 (0.16-1.47); MONOCYTES PERCENT AUTO 10 % (4-13); Mean Corpuscular HGB Conc 33.2 g/dL (31.5-36.5); Mean Corpuscular Volume 87 fL (80-100); NEUTROPHILS ABSOLUTE AUTO 4.80 K/mm3 (1.96-9.15); NEUTROPHILS PERCENT AUTO 67 % (41-73); NRBC ABSOLUTE 0.00 K/mm3 (0.00-0.02); NRBC Auto 0.0 /100 WBC (0.0-0.2); Platelet Count 294 K/mm3 (150-400); RDW Coefficient Variation 14.7 % (11.7-14.2); RDW Standard Deviation 47.0 fL (35.1-46.3)
[2025-01-31 04:56] LABS: Alanine Aminotransfer (ALT/SGP 13.0 U/L (12-78); Albumin, Blood 2.5 g/dL (3.4-5.0); Albumin/Globulin Ratio 0.7 (0.8-1.8); Anion Gap 10.0 mmol/L (3-11); Aspartate Aminotrans (AST/SGOT 19.0 U/L (12-37); Bilirubin, Total 1.0 mg/dL (0.1-1.0); Blood Urea Nitrogen 25.0 mg/dL (8-24); CO2, Blood 27.0 mmol/L (21-32); Calcium, Blood 8.9 mg/dL (8.5-10.1); Chloride, Blood 107.0 mmol/L (98-108); Creatinine, Blood 1.11 mg/dL (0.60-1.20); Globulin, Blood 3.5 g/dL (2.2-4.0); Glucose, Blood 124.0 mg/dL (70-99); Magnesium, Blood 2.0 mg/dL (1.6-2.4); Potassium, Blood 3.5 mmol/L (3.5-5.5); Sodium, Blood 140.0 mmol/L (136-145); Total Protein, Blood 6.0 g/dL (6.4-8.2)
--- NOTE | 2025-01-31 05:57 | NUR ---
SHIFT SUMMARY Pt rested well overnight. Oriented to person, birthday, and month. Heparin gtt adjusted per protocol. Atkins remains, urine blood tinged at start of shift, chiara this AM. Afib, rates 90-120s. high diastolic BPs. Pt continually stating he wants to go home
[2025-01-31 07:42] VITALS: BP 125/99
--- NOTE | 2025-01-31 07:49 | NUR ---
ASSUMPTION OF CARE: PATIENT EASILY AROUSABLE BUT CURRENLTY SLEEPING ON RA NO ACUTE DISTRESS, DENIES PAIN OF ANY KIND, URINE IMPROVING ONLY OUSIDE VS PARAMETER AT THIS TIME IS HR UP TO THE 120'S BUT AVERAGING 110'S LOW OFF 88. NO ACUTE CONCERNS. BED ALARM FOR SAFETY AND MODERATE GENERALIZED WEAKNESS. PLAN OF CARE CONTINUES.
--- NOTE | 2025-01-31 11:39 | NUR ---
PATIENT REFUSING MEDS: PT REFUSING MEDS DESPITE MULTIPLE ATTEMPTS FROM THIS RN, BREAK RN, CRUISE AGENT, AND EVEN WHOM IS AT BEDSIDE. PROVIDER NOTIFEID SHE WILL BE ROUNDING TO DISCUSS WITH PATIENT AND IMPORTANCE.
[2025-01-31] MEDS ORDERED: Metoprolol Tartrate 1 MG/ML 5 ML VIAL IV PRN (12:05)
[2025-01-31] MEDS ORDERED: BuPROPion HCl SR 100 MG TabCR PO SCH (12:10)
[2025-01-31 13:35] VITALS: BP 145/117
--- NOTE | 2025-01-31 16:53 | NUR ---
EOS/CHANGE IN BEHAVIOR: PATIENT AFTER SHOWED UP BEAME MORE COMPLIANT AND WAS ABLE TO TAKE MEDS, HOWEVER, PATIENT THIS EVENING AROUND 1615 BECAME EXTREMELY AGITATED AND PARANOID. PATIENT CONTINUED TO TRY TO GET OUT OF BED UNSAFELY, HE IS MODERATELY WEAK, BEING AGGRESSIVE WITH STAFF TO WHICH HE WAS ATTEMPTING TO HIT BREAK RN. PATIENT WAS PLACE WITH A SITTER ADN KAYLYNN VEST APPLIED. PATIENT IS CURRENTLY IN BED, SITTER AT BEDSIDE, NEEDS ADDRESSED. HOSPITALIST CALLED AND NOTIFIED. FAMILY NOTIFIED. NO FURTHER ACUTE CONCERN AT THIS TIME PLAN OF CARE CONTINUES.
[2025-01-31 20:09] VITALS: BP 119/90
[2025-02-01 00:12] VITALS: BP 134/94
[2025-02-01 03:39] VITALS: BP 150/92
[2025-02-01 03:45] LABS: BASOPHILS ABSOLUTE AUTO 0.07 K/mm3 (0.00-0.23); BASOPHILS PERCENT AUTO 1 % (0-2); EOSINOPHILS ABSOLUTE AUTO 0.10 K/mm3 (0.00-0.68); EOSINOPHILS PERCENT AUTO 2 % (0-6); Hematocrit 43.6 % (37.0-53.0); Hemoglobin 14.6 g/dL (13.5-17.5); IMMATURE GRAN ABSOLUTE AUTO 0.04 K/mm3 (0.00-0.10); IMMATURE GRAN PERCENT AUTO 1 % (0-1); LYMPHOCYTES ABSOLUTE AUTO 1.13 K/mm3 (0.84-5.20); LYMPHOCYTES PERCENT AUTO 18 % (21-46); MONOCYTES ABSOLUTE AUTO 0.56 K/mm3 (0.16-1.47); MONOCYTES PERCENT AUTO 9 % (4-13); Mean Corpuscular HGB Conc 33.5 g/dL (31.5-36.5); Mean Corpuscular Volume 86 fL (80-100); NEUTROPHILS ABSOLUTE AUTO 4.52 K/mm3 (1.96-9.15); NEUTROPHILS PERCENT AUTO 70 % (41-73); NRBC ABSOLUTE 0.00 K/mm3 (0.00-0.02); NRBC Auto 0.0 /100 WBC (0.0-0.2); Platelet Count 243 K/mm3 (150-400); RDW Coefficient Variation 14.8 % (11.7-14.2); RDW Standard Deviation 46.9 fL (35.1-46.3)
[2025-02-01 04:04] LABS: Anion Gap 9.0 mmol/L (3-11); Blood Urea Nitrogen 19.0 mg/dL (8-24); CO2, Blood 25.0 mmol/L (21-32); Calcium, Blood 8.8 mg/dL (8.5-10.1); Chloride, Blood 106.0 mmol/L (98-108); Creatinine, Blood 1.07 mg/dL (0.60-1.20); Glucose, Blood 164.0 mg/dL (70-99); Potassium, Blood 4.0 mmol/L (3.5-5.5); Sodium, Blood 136.0 mmol/L (136-145)
--- NOTE | 2025-02-01 06:45 | NUR ---
SHIFT SUMMARY PATIENT ORIENTED TO SELF AND SITUATION INITIALLY. PLEASANT AND COOPERATIVE WITH MOST CARE. HR 90-100'S WHILE AT REST. PATIENT ABLE TO MOVE HIMSELF IN BED IND WITHOUT ISSUE. PATIENT PROGRESSIVELY BECAME MORE CONFUSED DURING SHIFT BUT WAS MOSTLY REDIRECTABLE. POSI VEST WAS REMOVED AT 1999 AND DID NOT NEED TO BE PUT BACK ON. PATIENT BECAME PARANOID WITH STAFF, HIS , AND FAMILY MEMBERS STATING THAT THEY WERE TRYING TO HARM HIM AND STEAL HIS STUFF. PATIENT REMAINED CALM IN BED AND KEPT HIS VOICE AT REGULAR TONE. JUST PRIOR TO SHIFT CHANGE, PATIENT'S CONFUSION INCREASED TO THE POINT THAT HE WAS REMOVING HIS TELEBOX AND WHEN ASKED TO BE GIVEN BACK TO STAFF, HE REFUSED. EVENTUALLY AFTER SEVERAL MINUTES, THE PATIENT DID GIVE THE TELEBOX BACK TO STAFF. PATIENT WAS ALSO RESISTANT TO TAKE PO MEDS LAST NIGHT BUT AFTER EXPLAINING REASONING FOR MEDICATIONS, HE COMPLIED. PLAN OF CARE ONGOING.
[2025-02-01 08:24] VITALS: BP 109/82
[2025-02-01 12:43] VITALS: BP 100/64
[2025-02-01 15:28] VITALS: BP 105/63
--- NOTE | 2025-02-01 18:36 | NUR ---
PT ARRIVED TO ROOM 353. PT ABLE TO TELL ME HIS NAME AND THAT HE IS A DIABETIC. PT APPEARS COMFORTABLE, DENIES ANY UNMET NEEDS AT THIS TIME.
[2025-02-01 19:18] VITALS: BP 155/94
[2025-02-02 07:26] VITALS: BP 125/82
--- NOTE | 2025-02-02 07:59 | NUR ---
PIPED BUTTONHOLE MACHINE OPERATOR NOTIFICATION NOTE: PER PIPED BUTTONHOLE MACHINE OPERATOR, ENEDINA UPON REVIEWING PATIENT STRIPS AND RHYTHM SHE FOUND OUT THAT PATIENT HAD ST ELEVATION ON ALMOST LEADS, BUT COULD NOT TRACE WHEN STARTED D/T SOME OF LEADS WAS OFF OVERNIGHT. ALSO PIPED BUTTONHOLE MACHINE OPERATOR MENTION UPON TALKING TO HER CHARGE NURSE IN PCU THEY AGREED AND RECOMMENDED ECG. NOTIFIED DR. SAAB AND AGREED WITH RECOMMENDATION TO PERFORM ECG NOW.
--- NOTE | 2025-02-02 08:56 | NUR ---
SHIFT SUMMARY PATIENT WAS AGITATED AND UNCOOPERATIVE T/O SHIFT, STARTED WITH CLINICAL SITTER AND MEDS AND EVENTUALLY NEEDED NONVIOLENT RESTRAINTS DUE TO SAFETY CONCERNS. PATIENT HAS NIGHT TERRORS AND SCREAMS OUT DURING THE NIGHT WHEN HE SLEEPS. DOES NOT USE CALL LIGHT APPROPRIATELY. ATTEMPTS TO GET OUT OF BED AND PULL OUT LINES. CALL LIGHT WITHIN REACH, BED AT LOWEST LEVEL, NO DISTRESS NOTED
[2025-02-02 11:48] VITALS: BP 120/84
[2025-02-02 16:06] VITALS: BP 132/83
--- NOTE | 2025-02-02 17:04 | NUR ---
DAY SHIFT SUMMARY: PATIENT A/O TO SELF ONLY, CONFUSED AND HAS LABILE MOOD. PATIENT STILL ATTEMPTED TO GET OOB, KAYLYNN VEST RESTRAINT IN PLACE FOR SAFETY. EKG WAS DONE TODAY FOR ST ELEVATION PER ORDER. PATIENT ON TELE, AFIB HR RANGES IN HIGH 90'S TO 130'S BPM, VPACED. DR. SAAB REVIEWED PATIENT EKG TODAY, CT. PATIENT HAS POOR APPETITE, INCONTINENT OF BLADDER, ATTENDS IN PLACED AND CHANGED PRN. PATIENT SLEPT ON/OFF T/O SHIFT. VITAL SIGNS REVIEWED. BED ALARM ON FOR SAFETY. CALL LIGHT IN REACH.
[2025-02-02 20:13] VITALS: BP 122/86
[2025-02-02 22:58] VITALS: BP 124/102
[2025-02-03 04:08] VITALS: BP 134/106
[2025-02-03 05:01] VITALS: BP 126/99
--- NOTE | 2025-02-03 05:05 | NUR ---
Shift Summary: Pt. A&O to self only, confused & disoriented to person, time/date, place & situation. Moderate verbal agitation, anxiety and restlessness displayed earlier in the shift, pt. medicated with Seroquel 25 mg and Melatonin 5 mg as ordered PRN with (+) effect, his respirations are non-labored & is >90% on room air. Pt denies any acute pain and/or discomfort when questioned directly by RN. All his scheduled meds were taken well without any S/S acute adverse reactions to meds noted. Pt. tolerating po fluids well, and is voiding adequately (incontinent) without any S/S dysuria noted. At. 04:08 pt's VS readings: 134/106 97.3 19 WV=393; asymptomatic of any distress. Lopressor 2.5 mg IVP administered x1 as ordered PRN; VS repeated at 05:01, reads: 126/99 96.6 18 HR=83 All safety & comfort measures maintained, T&P q2H & PRN provided by staff, (R) posterior hand IV lock and (L) upper arm midline clean, intact & patent. Iglesia vest restraint maintained on and secured at all times; released and checked by RN PRN for any alterations in pt's skin integrity under vest. Pt. is calm & stable, resting with his call larsen in reach @ this time. Will cont. to closely monitor pt.
[2025-02-03 05:59] LABS: BASOPHILS ABSOLUTE AUTO 0.08 K/mm3 (0.00-0.23); BASOPHILS PERCENT AUTO 1 % (0-2); EOSINOPHILS ABSOLUTE AUTO 0.16 K/mm3 (0.00-0.68); EOSINOPHILS PERCENT AUTO 2 % (0-6); Hematocrit 42.7 % (37.0-53.0); Hemoglobin 14.3 g/dL (13.5-17.5); IMMATURE GRAN ABSOLUTE AUTO 0.03 K/mm3 (0.00-0.10); IMMATURE GRAN PERCENT AUTO 0 % (0-1); LYMPHOCYTES ABSOLUTE AUTO 1.23 K/mm3 (0.84-5.20); LYMPHOCYTES PERCENT AUTO 18 % (21-46); MONOCYTES ABSOLUTE AUTO 0.51 K/mm3 (0.16-1.47); MONOCYTES PERCENT AUTO 7 % (4-13); Mean Corpuscular HGB Conc 33.5 g/dL (31.5-36.5); Mean Corpuscular Volume 86 fL (80-100); NEUTROPHILS ABSOLUTE AUTO 4.87 K/mm3 (1.96-9.15); NEUTROPHILS PERCENT AUTO 71 % (41-73); NRBC ABSOLUTE 0.00 K/mm3 (0.00-0.02); NRBC Auto 0.0 /100 WBC (0.0-0.2); Platelet Count 179 K/mm3 (150-400); RDW Coefficient Variation 15.0 % (11.7-14.2); RDW Standard Deviation 47.5 fL (35.1-46.3)
[2025-02-03 06:23] LABS: Anion Gap 10.0 mmol/L (3-11); Blood Urea Nitrogen 19.0 mg/dL (8-24); CO2, Blood 24.0 mmol/L (21-32); Calcium, Blood 9.3 mg/dL (8.5-10.1); Chloride, Blood 109.0 mmol/L (98-108); Creatinine, Blood 1.07 mg/dL (0.60-1.20); Glucose, Blood 114.0 mg/dL (70-99); Magnesium, Blood 1.9 mg/dL (1.6-2.4); Potassium, Blood 4.3 mmol/L (3.5-5.5); Sodium, Blood 139.0 mmol/L (136-145)
[2025-02-03 07:40] VITALS: BP 130/87
--- NOTE | 2025-02-03 14:26 | NUR ---
CALLED PATIENTS JOSE LUIS. PATIENT IS CONFUSED AT BASELINE AND HAS INCREASING CONFUSION HERE IN THE HOSPITAL. DISCUSSED CODE STATUS AND HOSPICE. EXPRESSED CONCERN FOR PATIENTS MENTAL STATUS TO CONTINUE TO DECLINE THE LONGER HE IS IN THE HOSPITAL SETTING. DISCUSSED EXTRA SUPPORT THAT WOULD BE PROVIDED WITH HOSPICE. SHE IS AGREEABLE TO THIS PLAN. 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 WE DISCUSSED IF THERE WAS ANYONE WHO COULD PICK THE CAR UP AND SHE REPORTED THAT THERE IS NOT. SHE DOES NOT DRIVE AND SHE HAS NO ONE THAT COULD HELP HER WITH THAT. DISCUSSED WITH PROVIDER.
[2025-02-03 15:17] VITALS: BP 125/81
--- NOTE | 2025-02-03 18:31 | NUR ---
DAY SHIFT SUMMARY: PATIENT HAS HAD NO NEW CHANGES, A/O TO SELF ONLY, CONFUSED c INTERMITTENT RESTLESSNESS, ATTEMPTED TO GET OUT OF BED ON MULTIPLE OCCASION, KAYLYNN VEST IN PLACED FOR SAFETY. PATIENT STARTED ON SCHEDULED SEROQUEL 25 MG PO GIVEN AT 1508 AND NEXT DOSE OF 100 MG SCHEDULE AT 2100. TELE DC'D AND CODE STATUS CHANGED TO DNR PER ORDER. 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 BED IN LOWEST POSITION c ALARM ON FOR SAFETY. CALL LIGHT IN REACH.
[2025-02-03 21:05] VITALS: BP 130/111
[2025-02-04 04:25] VITALS: BP 137/115
--- NOTE | 2025-02-04 04:35 | NUR ---
VITALS/CHANGES CHARGE NURSE AND RN TO BEDSIDE. BEDSIDE VITALS WERE IRREGULAR. PATIENT SETTLED AND THE HEAD OF THE BED RAISED. HR LOWERED TO 72 BPM. HEART RHYTHM IS IRREGULAR. PATIENT'S BREATHING PATTERN IS IRREGULAR. PTS SEROQUIL WAS INCREASED AT TONIGHTS ADMINISTRATION WHICH COULD BE CONTRIBUTING TO S/SX.
--- NOTE | 2025-02-04 05:51 | NUR ---
Shift Summary- - Events: The patient remained restless and agitated overnight. Non-violent restraints were reordered for 02/03/25 02/04/25 21:04. Breathing appears rapid with periods of apnea. - Safety: [place] vest in use. Aspiration risk; HOB remains elevated. - Orientation: A/Ox1 (self). - Ambulation: Patient remained in the [place] vest and did not ambulate during the shift. - Medication: Administered in pieces via applesauce. - Toileting: Incontinent x2; noted low urine output.
[2025-02-04 07:29] VITALS: BP 110/84
[2025-02-04 09:12] VITALS: BP 138/98
[2025-02-04 14:57] VITALS: BP 110/82
--- NOTE | 2025-02-04 18:11 | NUR ---
PT AROUSABLE TO VOICE, HAS BEEN DROWSY AND HAS SLEPT FOR MOST OF THIS SHIFT. DECREASE PO INTAKE DUE TO PT NOT BEING ABLE TO STAY AWAKE. CONCERN FOR DEHYDRATION DECREASE CALORIC INTAKE. PROVIDING ORAL CARE EVERY 4 HOURS-PT IS A MOUTH BREATHER- RISK FOR ORAL CAVITY DRYNESS. TURN PT EVERY 2 HOURS TO PREVENT PRESSURE ULCERS-2P ASSIST. PT TOLERATED PIVOT TRANSFER WITH GAIT BELT TO RECLINER CHAIR AND STAYED IN CHAIR FOR ABOUT ONE HOUR- 2P MAX ASSIST. PT ON [place] VEST RESTRAINT FOR SAFETY THIS AM AND DISCONTINUED AT 1130. INCONTNENT OF B&B. SPOKE WITH TODAY AND SHE STATED SHE WOULD BE IN TOMMOROW FOR PT'S DISCHARGE HOME-ON HOSPICE. INFORMED THAT DC PLAN IN STILL IN PROCESS AND UNSURE IF PT WAS DC'ING TOMMOROW AND TO WAIT FOR CM PHONE CALL AND UPDATE. BED ALARM ON AT ALL TIMES DUE TO HIGH FALL RISK. CALL LIGHT IN REACH.
[2025-02-04 19:15] VITALS: BP 125/94
--- NOTE | 2025-02-04 23:18 | NUR ---
UNABLE TO SWALLOW- FINISH PATCHER PROVIDER NOTIFIED THAT PATIENT WAS UNABLE TO TOLERATE SWALLOWING HIS MEDICATIONS TONIGHT.
[2025-02-05 02:29] VITALS: BP 145/93
--- NOTE | 2025-02-05 05:33 | NUR ---
Shift Summary- Room 353 - Events: Patient remained restless overnight. Breathing is rapid with periods of apnea and use of accessory muscles. Requires routine oral care due to continuous mouth breathing. - Safety: Aspiration risk; HOB remains elevated with intake. - Orientation: A/Ox1 (self only). - Ambulation: No ambulation during shift. Previously reported as a two-person stand and pivot assist, but the patient is currently very weak with unstable legs. - Medication: Unable to swallow whole pills; medications must be crushed or cut. Use caution during administration. - Toileting: Incontinent x2; low urine output noted.
[2025-02-05 06:48] LABS: Anion Gap 8.0 mmol/L (3-11); Blood Urea Nitrogen 21.0 mg/dL (8-24); CO2, Blood 25.0 mmol/L (21-32); Calcium, Blood 9.6 mg/dL (8.5-10.1); Chloride, Blood 113.0 mmol/L (98-108); Creatinine, Blood 1.12 mg/dL (0.60-1.20); Glucose, Blood 107.0 mg/dL (70-99); Potassium, Blood 4.0 mmol/L (3.5-5.5); Sodium, Blood 142.0 mmol/L (136-145)
--- NOTE | 2025-02-05 07:17 | NUR ---
ASSUMED CARE OF PT/CALLED DR NEWTON- PT IS IN BED AT THE TIME OF SHIFT CHANGE AND BEDSIDE REPORT. PT RESP RATE ELEVATED TO 40 PER MINUTE, NIGHT RN REPORTS UNABLE TO PROVIDE THE PT WITH PO MEDS LAST NIGHT D/T RESP RATE AND STATUS. RT AND NIGHT HOSPITALIST WERE CONTACTED PER REPORT. PT IS AGGITATED, FREQUENT JERKY SPASAMY MOVEMENTS, ACCESSORY MUSCLE USE FOR BREATHING. PLAN IS FOR PT TO DC HOME ON HOSPICE, HOWEVER PER REPORT THE IS UNABLE TO DRIVE OR SHOP FOR GROCERIES, SO US UNABLE TO CARE FOR HIM. HE HAS NOT BEEN TRANSITIONED TO COMFORT CARE HERE. CALLED DR NEWTON ABOUT THE PT RESPIRATORY STATUS AND AIR HUNGER WITH THE ADDED AGGITATION. HE PLACED AN ORDER FOR A SMALL DOSE OF ROXANOL TO RELIEVE THE RESPIRATORY DISTRESS. PLAN TO SPEAK TO THE TODAY AND POSSIBLE TRANSSITION TO COMFORT CARE.
[2025-02-05] MEDS ORDERED: Morphine Sulfate 20 MG/1ML 1 ML Oral Syringe PO PRN ×2 (07:20→10:00)
[2025-02-05 07:39] VITALS: BP 132/110
--- NOTE | 2025-02-05 07:40 | NUR ---
RESP STATUS IMPROVED- PT MEDICATED WITH 5MG ROXANOL. RESP RATE IS STILL ELEVATED BUT MORE RELAXED, MINIMAL ACCESSORY MUSCLE USE NOTED AFTER MEDICATION AND RATE DECREASTED TO 24 FROM 40 RESP PER MINUTE. PT MUMBLING AND NOT JERKING OFTEN. REPOSITIONED AND VS CHECKED. VEWS SCORE OF 4, TACHY HEART RATE, ELEVATED BP AND RESP RATE. HE HAS JUST BEEN MEDICATED, MD AWARE OF PT STATUS SO NOT NOTIFIED AT THIS TIME.
--- NOTE | 2025-02-05 08:58 | NUR ---
RESP STATUS- PT RESP RATE ELEVATED AGAIN TO 30-35 BREATHS PER MINUTE WITH SOME AGGITATION NOTED, ACCESSORY MUSCLE USE AGAIN NOTED. MEDICATED WITH ANOTHER 5MG ROXANOL
--- NOTE | 2025-02-05 09:10 | NUR ---
RCV'D CALL FROM BEDSIDE RE: INCREASED RESPIRATIONS AND AGGITATION. RESPIRATIONS IMPROVED, DECREASED WORK OF BREATHING S/P ROXANOL ADMINISTRATION. COLLABORATED WITH PROVIDER, BEDSIDE RN AND CM RE: POSSIBLE GOALS OF CARE. THIS PC RN TO CALL SPOUSE WITH HEALTH/SYMPTOM UPDATES AND GOALS OF CARE CONVERSATION.
--- NOTE | 2025-02-05 10:00 | NUR ---
GOALS OF CARE PHONE CALL WITH SPOUSE. D/T PT'S INCREASED AGGITATION AND WORK OF BREATHING, SPOUSE WOULD LIKE TO START COMFORT CARE NOW. PER CM, PLAN WAS TO D/C HOME THIS AFTERNOON WITH [facility]. SPOUSE STS PT DOES NOT WANT ANYBODY COMING IN HIS HOME. EDUCATED ON HOME HOSPICE SERVICES AVAILABLE AND THE CUSTOMER COUNTER ASSOCIATE'S ONLY BEING IN THE HOME FOR A SHORT AMOUNT OF TIME, SPOUSE IS AGREEABLE TO HOME HOSPICE. REVIEWED SPOUSE CONVERSATION WITH , WHOM WILL BE PLACING COMFORT CARE ORDERS. UPDATE PROVIDED TO BEDSIDE RN AND CM.
--- NOTE | 2025-02-05 10:24 | NUR ---
SPOKE TO IN PROVIDER ROUNDS- PT RESP RATE AGAIN ELEVATED AND HE IS IN VISIBLE DISTRESS DESPITE MED FOR AIR HUNGER. SPOKE TO PALLIATIVE CARE RN FOX, SHE IS CALLING TO SPEAK TO SPOUSE NOW. PT MEDICATED WITH 10MG ROXANOL PER THE NEW ORDER FROM DR NEWTON. WILL CTM
--- NOTE | 2025-02-05 10:56 | NUR ---
JEANNE A CALL FROM PALLIATIVE CARE- THEY SPOKE TO THE PT . HE WILL OFFICIALLY BE MADE COMFORT CARE, DR NEWTON NOTIFIED AND PLACING ORDERS. PT WAS MEDICATED LAST WITH 10MG ROXANOL. HE SEEMS TO BE MORE ANXIOUS WITH THAT DOSE, GRIPPING THE BED IF FALLING. WILL GO BACK TO THE LOWER DOSE FOR NEXT MEDICATION. CALLING DR NEWTON TO REQUEST ATIVAN PO.
[2025-02-05] MEDS ORDERED: Atropine Sulfate 1% Opth Soln 2ML BTL SL PRN (11:05)
[2025-02-05] MEDS ORDERED: LORazepam 2 MG/ML 1ML Injection IV PRN (11:10)
--- NOTE | 2025-02-05 11:14 | NUR ---
PT HAS OFFICIAL COMFORT CARE ORDERS- PT IS ANXIOUS AND AGGITATED STILL. HE IS EXHIBITING SIGNS OF AIR HUNGER, WITH ACCESSORY MUSCLE USE, GRABBING AND HOLDING THE BED RAILS WITH APPARENT ANXIETY. WILL MEDICATE PER EMAR
--- NOTE | 2025-02-05 11:39 | NUR ---
COMFORT CARE NOTE- PT MEDICATED WITH ROXANOL 5MG WITH 1MG CRUSHED ATIVAN, FOR AIR HUNGER AND ANXIETY. PT THEN ROLLED TO THE LEFT SIDE, WHICH HE CLEARLY DID NOT APROVE OF. REPOSITIONED TO THE RIGHT SIDE AND HE SEEMED TO SETTLE INTO THAT POSITION. HE HAS AN ELEVATER RESP RATE AND AUDIBLE SNORE, HIS TOUNG IS CAUSING AN OBSTRUCTION, THE PT CAN MOVE HIS TOUNG BUT SEEMS TO HAVE NO PASSIVE MOVEMENT OF IT. HOB HAS BEEN ELEVATED TO HELP THE OBSTRUCTIVE ISSUE, BUT THE PT SEEMS TO BE TIRED OF SITTING UP, ROLLING TO THE SIDE IS THE NEXT OPTION, PT DOES NOT LIKE THE LEFT SO TO THE RIGHT APPEARS TO BE THE BEST. MEDS PER MAR, WILL CTM.
--- NOTE | 2025-02-05 12:38 | NUR ---
BEDSIDE RN REPORTS AGGITATION NOT IMPROVED WITH ATIVAN. THIS PC RN RECOMMENDS ADMINISTRATION OF IM ZYPREXA ON MAR AND TYLENOL SUPPOSITORY. BEDSIDE RN TO EVALUATE FOR POSSIBLE CONSTIPATION. LAST BM CHARTED IS 01-28-25.
--- NOTE | 2025-02-05 12:56 | NUR ---
SPOKE TO PALLIATIVE CARE RN- SPOKE ABOUT THE PT INCREASED AGGITATION THE DAY HAS PROGRESSED. ROXANOL MAY NOT HELP WITH PAIN, MEDICATED WITH RECTAL TYLENOL, PT HAS NOT HAD A STOOL IN 4 DAYS, NO NOTED STOOL WHEN SUPPOSITORY WAS PLACED. IM ZYPREXA WAS RECOMENDED THE ATIVAN MAY NOT BE HAVING THE DESIRED EFFECT. MEDICATED PER EMAR. WILL CTM.
--- NOTE | 2025-02-05 13:42 | NUR ---
PROVIDER ROUNDING- DR NEWTON AT THE BEDSIDE, WITH THE SPOUSE, A FAMILY FRIEND, THIS RN AND THE PALLIATIVE CARE RN FOX. PT MEDICATED LAST WITH IM ZYPREXA AND HI TYLENOL. HE IS AGGITATED, COMPLETELY DISORIENTED, AGGITATED AND IN RESPIRATORY DISTRESS AGAIN. (LESS THAN THE START OF THE DAY). MEDICATED WITH ROXANOL 10MG. MD WILL REVIEW MEDS AND ORDER OTHER MEDICATIONS TO HELP WITH SYMPTOM MANAGEMENT. PLAN IS TO GET THE PT STABLE PRIOR TO FORMING A DC PLAN AGAIN.
--- NOTE | 2025-02-05 15:13 | NUR ---
TOD 1500- PT IN BED NO LONGER ANXIOUS, NO JERKY MOVEMENTS NOTED RESP RATE STILL ELEVATED AND SONOROUS 30 RESP A MINUTE, WITH ACCESSORY MUSCLE USE, SPOKE TO PALLIATIVE CARE FOR SYMPTOM MANAGEMENT, ORDER CHANGED IN EMAR TO INCREASE ROXANOL DOSE PER MD ORDER, SPOUSE AT THE BEDSIDE. PT STOPPED BREATHING FOR A FULL MINUTE. THEN RESTARTED 1-2 BREATHS PER MINUTE. EXPLAINED TO THE SPOUSE THAT HE APPEARS TO BE TRANSITIONING, CALLED PALLIATIVE CARE TO THE BEDSIDE TO ASSIST IN EDUCATING THE FAMILY. PT PASSED AT 1500. NO AUDIBLE HEART TONES, RESPIRATIONS OR CAROTID PULSE NOTED. VERIFIED WITH GERARD BRAXTON.
--- NOTE | 2025-02-05 15:27 | NUR ---
ASSISTED BEDSIDE RNJULIANA WITH 2 RN PRONOUNCEMENT. TOD 02/05/25 @ 1500. SPOUSE AND FRIEND AT BEDSIDE. DIRECTOR MONEY TOYA CALLED TO ROOM FOR PRAYER AND SUPPORT. HOME LIST PROVIDED. SPOUSE CHOSE [facility].
--- NOTE | 2025-02-05 15:28 | NUR ---
Spiritual care visit conducted. I had just finished a visit with the patient's SO, Jenna, who was telling me about the long hard struggle that the patient has had with medical problems, about their 40 plus years together and about their [employer] radha. I provided therapeutic listening, gentle cousel and prayer, with good result. By the time I made it down the stairs, Sonia from Palliative care called me back up to the room because the patient had . I immediately provided grief support, as Jenna was tearful. I then supplied the list of homes, which Jenna Chose [facility]. I prayed for the patient and for the those impacted by his loss. Jenna responded well and showed signs of being comforted.
--- NOTE | 2025-02-05 16:13 | NUR ---
POST MORTEM CARE COMPLETED FRESH ATTENDS IN PLACE, PT CLEAN AND DRY, LINES AND TUBES DC'D NO PATCHES ON SKIN. 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
== END 2025-02-05 15:00 ==
LOC: ER 16:18 → ERHOLD 16:19 → ICUE 16:19 → ERHOLD 16:19 → ICUE 19:16 → MEDS 19:16 → ICUE 19:17 → PCU 01-30 16:43 → MEDS 02-01 18:26 → ENPENDDIS 02-05 15:00
PROVIDERS: Emergency Medicine; Internal Medicine; Nurse Practitioner Acute Care; Student in an Organized Health Care Education/Training Program; ADMIT Internal Medicine
PROC: 3E02340 Introduction of Influenza Vaccine into Muscle, Percutaneous Approach (ICD-10-PCS; principal; 2025-01-28)
PROC: 0T9B70Z Drainage of Bladder with Drainage Device, Via Natural or Artificial Opening (ICD-10-PCS; 2025-02-01)
DX: I48.20 Chronic atrial fibrillation, unspecified (principal); G93.41 Metabolic encephalopathy; I21.A1 Myocardial infarction type 2; I13.0 Hypertensive heart and chronic kidney disease with heart failure and stage 1 through stage 4 chronic kidney disease, or unspecified chronic kidney disease; N17.9 Acute kidney failure, unspecified; F02.811 Dementia in other diseases classified elsewhere, unspecified severity, with agitation; F02.83 Dementia in other diseases classified elsewhere, unspecified severity, with mood disturbance; I50.22 Chronic systolic (congestive) heart failure; G30.9 Alzheimer's disease, unspecified; I35.0 Nonrheumatic aortic (valve) stenosis; E11.22 Type 2 diabetes mellitus with diabetic chronic kidney disease; Z66 Do not resuscitate; Z51.5 Encounter for palliative care; N18.30 Chronic kidney disease, stage 3 unspecified; J44.9 Chronic obstructive pulmonary disease, unspecified; Z78.1 Physical restraint status; R54 Age-related physical debility; T50.916A Underdosing of multiple unspecified drugs, medicaments and biological substances, initial encounter; E03.9 Hypothyroidism, unspecified; E87.6 Hypokalemia; E11.51 Type 2 diabetes mellitus with diabetic peripheral angiopathy without gangrene; I49.5 Sick sinus syndrome; Z23 Encounter for immunization; Z87.19 Personal history of other diseases of the digestive system; Z91.048 Other nonmedicinal substance allergy status; Z79.899 Other long term (current) drug therapy; Z79.84 Long term (current) use of oral hypoglycemic drugs; Z79.01 Long term (current) use of anticoagulants; Z79.891 Long term (current) use of opiate analgesic; Z95.0 Presence of cardiac pacemaker; Z86.73 Personal history of transient ischemic attack (TIA), and cerebral infarction without residual deficits; Z87.01 Personal history of pneumonia (recurrent); Z90.49 Acquired absence of other specified parts of digestive tract; Z98.890 Other specified postprocedural states; Z86.79 Personal history of other diseases of the circulatory system; Z87.891 Personal history of nicotine dependence; Z79.4 Long term (current) use of insulin
CPT/HCPCS: 36415; 71046; 76770; 80048; 80053; 81001; 82140; 82550; 82803; 82947; 83690; 83735; 83880; 84100; 84484; 85025; 85379; 85610; 85730; 92610; 93005; 93010; 93306; 94760; 96374; 97162; 99285-25; A9270; C1751; J1160; J1644; J2060; J3480; J7040; J7050